=== PATIENT | male | born 1960 | race Two or more races ===

== ENCOUNTER 2019-01-31 23:02 | Inpatient (IN) | payer MEDICARE, OTHER ==
[~2019-01-31] VITALS: Ht 170.2 cm; Wt 59.0 kg
[2019-01-31 23:00] VITALS: BP 147/81
--- NOTE | 2019-01-31 23:10 | NUR ---
PT TIFFANY FROM [facility], SENT BY PMD FOR HGB 6.8 AND HCT 20.8 THIS MORNING. PT HAS TRACH, RUE PICC, GTUBE, LUE FISTULA. PT ABLE TO FOLLOW SIMPLE COMMANDS. NONVERBAL. NAD NOTED. RESP EVEN AND UNLABORED. PT ON MONITOR IN BED 8 WITH FAMILY AT BEDSIDE. WILL CONTINUE TO MONITOR.
--- NOTE | 2019-01-31 23:20 | NUR ---
Conner duval in [facility] - 01/31/19 at 2325 by CIPRIANO BLOOD DRAWN AND GIVEN TO LAB
--- NOTE | 2019-01-31 23:25 | NUR ---
PHLEB AT BEDSIDE FOR LAB DRAW.
[2019-01-31] MEDS ORDERED: PANTOPRAZOLE 40 MG VIAL ONE (23:28)
[2019-01-31] MEDS ORDERED: PANTOPRAZOLE 80 MG in IV NS 0.9% 100 ML IV ONE (23:30)
[2019-01-31 23:40] LABS: BASOPHILS # (AUTO) 0.3 /CMM (0.0-0.2); BASOPHILS % (AUTO) 3.3 % (0.0-2.0); HEMATOCRIT 21 % (39-51); LYMPHOCYTES # (AUTO) 0.5 /CMM (0.8-4.8); LYMPHOCYTES % (AUTO) 5.2 % (20.0-44.0); MEAN CORPUSCULAR HGB CONC 33 g/dl (31.0-36.0); MEAN CORPUSCULAR VOLUME 94 fL (80-96); MONOCYTES # (AUTO) 0.8 /CMM (0.1-1.30); MONOCYTES % (AUTO) 8.5 % (2.0-12.0); NEUTROPHILS # (AUTO) 7.3 /CMM (1.8-8.9); PLATELET COUNT (AUTO) 273 /CMM (150-450); RED BLOOD CELL COUNT(AUTO) 2.21 MIL/uL (4.5-6.0); WHITE BLOOD COUNT (AUTO) 9.2 K/uL (4.3-11.0)
[2019-01-31 23:41] LABS: HEMOGLOBIN 6.9 g/dL (13.5-17.5)
[2019-01-31 23:57] LABS: MAGNESIUM 2.7 mg/dL (1.8-2.4); PHOSPHORUS 3.7 mg/dL (2.5-4.9)
[2019-02-01] VITALS (13 sets, daily range): BP systolic 102–175; BP diastolic 36–82
[2019-02-01 00:14] LABS: ALBUMIN 2.9 g/dL (3.4-5.0); BILIRUBIN,DIRECT 0.2 mg/dL (0.0-0.2); BILIRUBIN,TOTAL 0.5 mg/dL (0.2-1.0); CALCIUM, SERUM 8.5 mg/dL (8.5-10.1); CREATININE 3.5 mg/dL (0.6-1.3); TOTAL PROTEIN, SERUM 3.8 g/dL (6.4-8.2)
[2019-02-01 00:15] LABS: POTASSIUM 2.6 mmol/L (3.5-5.1)
[2019-02-01 00:21] LABS: OCCULT BLOOD STOOL NEGATIVE (NEGATIVE)
[2019-02-01 00:24] LABS: MONOCYTES % (MANUAL) 5 % (0-11.0); NEUTROPHILS % (MANUAL) 87 (42-76)
[2019-02-01 00:25] LABS: EOSINOPHILS % (MANUAL) 3 % (0-4); LYMPHOCYTES % (MANUAL) 5 % (16-48)
[2019-02-01] MEDS ORDERED: POTASSIUM CHLORIDE 20 MEQ TAB.PRT.SR PO ONE ×2 (00:30→00:46)
--- NOTE | 2019-02-01 00:41 | NUR ---
REPORT GIVEN TO RENAY LOPEZ FOR DEWEY
--- NOTE | 2019-02-01 01:45 | NUR ---
MANAGER STATISTICAL PROGRAMMING NOTE PATIENT RECEIVED FROM ER IN [facility], AT BEDSIDE. PATIENT A/O X 3-4. PATIENT NONVERBAL, BUT ABLE TO MAKE HIS NEEDS KNOWN. PATIENT HAS NO ACUTE S/S OF DISTRESS. PATIENT HAS NO C/O OF DISCOMFORT, SOB, CHEST PAIN. PATIENT HAS RUE PICC LINE AND LUE AV FISTULA B/T PRESENT. PATIENT TOLERATING VENT SETTINGS AC 16 TV 400 PEEP 5 FIO2 21%. 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 PATIENT HAS TWO J TUBES, THE MEDIAL ONE FOR DRAINAGE, PATENT AND DRAINING TO GRAVITY, DARK GREENISH BROWN LIQUID NOTED. THE LATER SMALLER JTUBE IS CLAMPED AND USED FOR FEEDING AND MEDICATION. PATIENT AND FAMILY ORIENTED TO UNIT AND CALL BUTTON. SAFETY PRECAUTIONS TAUGHT AND IN PLACE. BED IN LOWEST LOCKED POSITION, SIDE RAILS UP X2, CALL LIGHT AT HAND. MD NOTIFIED FOR ADMISSION ORDERS. RN WILL CONTINUE TO MONITOR FOR S/S OF DISTRESS AND ACUTE CHANGES.
--- NOTE | 2019-02-01 03:00 | NUR ---
BOILER TESTING TECHNICIAN NOTE CONSENT OBTAINED FOR BLOOD TRANSFUSION DURING HD
[2019-02-01] MEDS ORDERED: ACETAMINOPHEN 325 MG TABLET PO PRN (03:30)
[2019-02-01] MEDS ORDERED: Z GUARD REMEDY 2 OZ OINT TP PRN (03:30)
[2019-02-01] MEDS ORDERED: MAGNESIUM HYDROXIDE 30 ML UDC PO PRN (03:30)
[2019-02-01] MEDS ORDERED: ONDANSETRON HCL/PF 4 MG/2 ML VIAL IVP PRN (03:30)
[2019-02-01] MEDS ORDERED: ZOLPIDEM TARTRATE 5 MG TABLET PO PRN (03:30)
--- NOTE | 2019-02-01 06:51 | NUR ---
REAL PROPERTY APPRAISER NOTE PATIENT STABLE NO S/S OF DISTRESS. PATIENT SR ONT HE MONITOR SAFETY PRECAUTIONS IN PLACE. POC ENDORSED TO AM FOR DEWEY.
[2019-02-01] MEDS ORDERED: NEPRO 1,000 ML BOTTLE GT PRN ×3 (07:00→14:00)
--- NOTE | 2019-02-01 08:00 | NUR ---
OUTBOARD MOTOR INSPECTOR NOTE RECEIVED PATIENT IN BED ,ALERT ORIENTED,NONVERBAL ABLE TO COMMUNICATE USING PAPER AND PEN , AT BEDSIDE , RT AT BEDSIDE TRACH SUCTION DONE ,WITH TRACH TO VENT SETTING ORDERED , AMBU BAG AT [facility], HAS 2 J TUBE ONE TO DRAINAGE TO GRAVITY WITH GREENISH COLOR , RT UPPER ARM PICC LINE , LT UPPER ARM AV FISTULA, WILL HAVE HD TODAY ,DR BORGES AT BEDSIDE STATED THAT WILL HAVE HD TODAY WITH BLOOD TRANSFUSION I UNIT PRBC WITH HD, WILL CONT TO MONITOR CLOSELY, PLAN OF CARE DISCUSSED WITH PATIENT AND
[2019-02-01] MEDS ORDERED: EPOETIN ALFA (10,000 UNIT) 10,000 UNIT/ML VIAL IV ONE (08:30)
--- NOTE | 2019-02-01 08:30 | NUR ---
WOUND CARE CONSULT: PT PRESENTS WITH RT BELOW KNEE AMPUTATION STUMP AND LEFT PREVIOUS TOE AMPUTATION SITE (CLEAR) WELL SACRAL SCARRING, PRESENT ON ADMISSION. PT IS VENT DEPENDENT. RECOMMENDATIONS MADE FOR SKIN PROTECTION. DISCUSSED WITH NURSING STAFF. LEFT HEEL FLOATED. WILL SEE PRN. YODER IN AGREEMENT WITH PLAN OF CARE. FIRST STEP LOW AIRLOSS MATTRESS ON ORDER. Addendum: 02/01/19 at 0832 by TRISTAN RENTERIA WNDNU Amended: Links added.
--- NOTE | 2019-02-01 09:09 | NUR ---
MS NIÑO NOTE OT AT BEDSIDE PATIENT ,ABLE TO SIT AT EDGE OF HOSPITAL Addendum: 02/01/19 at 0911 by WALTER SALES RN CORRECTION IN SPELLING ,ABLE TO SIT AT EDGE OB BED WITH OT
--- NOTE | 2019-02-01 11:14 | NUR ---
ROLL GRINDER OPERATOR NOTE DIETARY AT BEDSIDE ,AWARE F G TUBE FEEDING RATE, STATED THAT WILL CHECK IT OUT ALSO CALLED TO HD NURSE LEWIS STATED EBONI HD NURSE WILL COME THIS AFTERNOON ,WILL GIVE BLOOD I UNIT PRBC WITH HD ORDERED
--- NOTE | 2019-02-01 11:41 | NUR ---
television mechanic note seen by dr perez notified that k 2.6 hg 6.9,stated will adjust with hd
[2019-02-01] MEDS ORDERED: LEVE500T20 JT ×2 (13:19→13:43)
[2019-02-01] MEDS ORDERED: MULT-24 JT (13:19)
[2019-02-01] MEDS ORDERED: DORZ10DR10 EACHEYE (13:19)
[2019-02-01] MEDS ORDERED: FERR325T23 JT (13:19)
[2019-02-01] MEDS ORDERED: CALC0.5C11 JT (13:19)
[2019-02-01] MEDS ORDERED: MIDO10TA JT (13:19)
[2019-02-01 13:30] LABS: THYROID STIMULATING HORMONE 1.61 uIU/mL (0.358-3.74)
[2019-02-01] MEDS ORDERED: TRAV5DRO EACHEYE (13:43)
[2019-02-01] MEDS ORDERED: ATOR80TA JT (13:43)
[2019-02-01] MEDS ORDERED: FERR325T28 JT (13:43)
[2019-02-01] MEDS ORDERED: TIMO5DRO35 RIGHTEYE (13:43)
[2019-02-01] MEDS ORDERED: SERT100T JT (13:43)
[2019-02-01] MEDS ORDERED: FLUD0.1T JT (13:43)
[2019-02-01] MEDS ORDERED: LEVO50TA JT (13:43)
--- NOTE | 2019-02-01 13:58 | NUR ---
TOBACCO SAMPLE PULLER NOTE [facility] APPLIED ORDERED, PER DR JONY STANFORD TO DO SLIDING SCALE WITH INSULIN.PER DIETARY OK TO CHANGE J TUBE FEEDING AT 40 ML PER HOUR
[2019-02-01] MEDS ORDERED: DEXTROSE 50%-WATER 50 ML DISP.SYRIN IV PRN (14:00)
--- NOTE | 2019-02-01 14:54 | NUR ---
television tube inspector note hd started as ordered, blood transfusion i unit prbc start to transfuse by hd nurse with hd as ordered ,will cont to monitor
[2019-02-01] MEDS ORDERED: PANT40TA4 JT (15:22)
[2019-02-01] MEDS ORDERED: INSU100V7 SQ (15:22)
--- NOTE | 2019-02-01 16:15 | NUR ---
telegraph repeater installer note on hd at this time, at bedside , not in distress
[2019-02-01] MEDS: BLOOD SUGAR DIAGNOSTIC 1 EACH STRIP IN SCH (17:00)
--- NOTE | 2019-02-01 17:43 | NUR ---
fran mcmahon note hd completed removed 1.5ml of fluids bp 181/84 hr 81 Addendum: 02/01/19 at 1753 by WALTER SALES RN bp rechecked 124/59 hr 74
[2019-02-02] VITALS (11 sets, daily range): BP systolic 106–133; BP diastolic 26–69
[2019-02-02] MEDS: BLOOD SUGAR DIAGNOSTIC 1 EACH STRIP IN SCH ×4 (00:34→17:31)
[2019-02-02] MEDS: INSULIN REGULAR, HUMAN 100 UNIT/ML 3 ML VIAL SQ PRN ×4 (00:37→17:43)
--- NOTE | 2019-02-02 01:07 | NUR ---
SHUTTLER NOTE RECEIVED PATIENT IN BED , A/O ,NONVERBAL ABLE TO MOUTH WORDS, WITH TRACH ON MECHANICAL VENTILATOR, TOLERATED VENT SETTING WELL, NO SOB/ACUTE DISTRESS NOTED , AMBU BAG AT BEDSIDE, HAS 2 J TUBE ONE TO DRAINAGE TO GRAVITY WITH GREENISH COLOR , AND JT INFUSING FEEDING ORDERED, WITH NO RESIDUAL AT THIS TIME, RT UPPER ARM PICC LINE , LT UPPER ARM AV FISTULA, S/P HD WITH BLOOD TRANSFUSION I UNIT PRBC WITH HD, NO C/O OR DISCOMFORT NOTED, WILL CONTINUE TO MONITOR CLOSELY. Addendum: 02/02/19 at 0115 by VINH ALMANZAR RN CORRECT TIME 02/01/191919
--- NOTE | 2019-02-02 06:30 | NUR ---
BACON SKINNER NOTE PATIENT IN BED ,AWAKE A/O ,NONVERBAL ABLE TO MOUTH WORDS, WITH TRACH ON MECHANICAL VENTILATOR, TOLERATED VENT SETTING WELL, SR IN THE TELE MONITOR WITH HR 80-90S NO SOB/ACUTE DISTRESS NOTED , FEEDING INFUSING WELL AND PATIENT TOLERATED WELL, NO RESIDUAL NOTED, NO SIGNIFICANT CHANGE IN CONDITION DURING THE NIGHT, WILL ENDORSE CONTINUITY OF CARE TO ONCOMING NURSE.
[2019-02-02 06:45] LABS: BASOPHILS # (AUTO) 0.1 /CMM (0.0-0.2); BASOPHILS % (AUTO) 1.1 % (0.0-2.0); EOSINOPHILS % (AUTO) 3.2 % (0.0-6.0); HEMATOCRIT 25 % (39-51); HEMOGLOBIN 8.6 g/dL (13.5-17.5); LYMPHOCYTES # (AUTO) 0.5 /CMM (0.8-4.8); MEAN CORPUSCULAR HGB CONC 34 g/dl (31.0-36.0); MEAN CORPUSCULAR VOLUME 91 fL (80-96); MONOCYTES # (AUTO) 0.7 /CMM (0.1-1.30); MONOCYTES % (AUTO) 10.5 % (2.0-12.0); NEUTROPHILS # (AUTO) 5.1 /CMM (1.8-8.9); NEUTROPHILS % (AUTO) 77.2 % (43.0-81.0); PLATELET COUNT (AUTO) 234 /CMM (150-450); RED BLOOD CELL COUNT(AUTO) 2.74 MIL/uL (4.5-6.0); WHITE BLOOD COUNT (AUTO) 6.5 K/uL (4.3-11.0)
[2019-02-02 07:00] LABS: CALCIUM, SERUM 8.8 mg/dL (8.5-10.1); CREATININE 2.5 mg/dL (0.6-1.3); MAGNESIUM 2.5 mg/dL (1.8-2.4); POTASSIUM 3.2 mmol/L (3.5-5.1)
--- NOTE | 2019-02-02 07:10 | NUR ---
RN OPENING NOTE RECEIVED PATIENT ASLEEP, BUT EASILY AROUSABLE. PATIENT IS ON TELE MONITOR, SINUS RHYTHM. ON GT FEEDING NEPRO AT 40ML/HR. HAS A RIGHT UPPER ARM PICC LINE AND LEFT UPPER ARM HD ACCESS. BED LOCKED AND IN LOWEST POSITION. CALL LIGHT WITHIN REACH. WILL CONTINUE TO MONITOR.
[2019-02-02] MEDS: NEPRO 1,000 ML BOTTLE GT PRN (09:38)
[2019-02-02] MEDS ORDERED: POTASSIUM CHLORIDE 20 MEQ POWDER PACKET NG ONE (10:30)
--- NOTE | 2019-02-02 15:51 | NUR ---
RN NOTE PATIENT'S POTASSIUM HAS BEEN REPLACED. PATIENTS STATES NO COMPLAINS OF ANY PAIN OR SOB. FAMILY ON BEDSIDE. OLD GT SITE DRAINING WELL. PATIENT TOLERATING JT FEEDING AT 40ML/HR. NO RESIDUAL. WILL CONT TO MONITOR
--- NOTE | 2019-02-02 18:44 | NUR ---
RN CLOSING NOTE PATIENT IN BED AWAKE AND ALERT, NON VERBAL BUT MOUTHS WORDS TO MEET NEEDS. ASKED TO BE SUCTIONED. FAMILY ON BEDSIDE. ALL MEDS GIVEN. NO COMPLAINS OF ANY PAIN OR SOB. WOUNDS/ AMPUTATIONS NOTED. INSULIN COVERAGE GIVEN. BED ON LOWEST POSITION. CALL LIGHT WITHIN REACH. WILL ENDORSE TO NOC SHIFT.
[2019-02-03] VITALS (8 sets, daily range): BP systolic 113–151; BP diastolic 45–93
[2019-02-03] MEDS: BLOOD SUGAR DIAGNOSTIC 1 EACH STRIP IN SCH ×4 (00:49→18:05)
[2019-02-03] MEDS: INSULIN REGULAR, HUMAN 100 UNIT/ML 3 ML VIAL SQ PRN ×4 (00:56→18:12)
--- NOTE | 2019-02-03 07:00 | NUR ---
FIELD OPERATOR OPENING NOTE RECEIVED PATIENT IN BED , A/OX3 ,NONVERBAL ABLE TO MOUTH WORDS, WITH TRACH ON MECHANICAL VENTILATOR, TOLERATED VENT SETTING WELL, NO SOB/ACUTE DISTRESS NOTED , AMBU BAG AT BEDSIDE, HAS G TUBE ONE TO DRAINAGE TO GRAVITY WITH GREENISH COLOR , AND JT INFUSING FEEDING ORDERED, WITH NO RESIDUAL AT THIS TIME, RT UPPER ARM PICC LINE , LT UPPER ARM AV FISTULA. NO C/O OR DISCOMFORT NOTED, WILL CONTINUE TO MONITOR CLOSELY.
[2019-02-03] MEDS: SOD FERRIC GLUC 125 MG in IV NS 0.9% 100 ML IV SCH (14:10)
[2019-02-03] MEDS: NEPRO 1,000 ML BOTTLE GT PRN (14:21)
--- NOTE | 2019-02-03 17:40 | NUR ---
RT NOTE PT REMAINS MECHANICALLY VENTILATED VIA SHILEY 6 CUFFED TRACHEOSTOMY TUBE. CUFF INFLATED. TRACH TUBE MIDLINE AND SECURE. VENTILATOR SETTINGS PRESCRIBED. ALARMS SET PER PROTOCOL AND AUDIBLE. VENT PLUGGED IN TO RED OUTLET. AMBU BAG AT BED SIDE. PT AWAKE AND ALERT. NO DISTRESS NOTED. Addendum: 02/03/19 at 1741 by KELLE GARCIA RT Amended: Links added.
--- NOTE | 2019-02-03 19:30 | NUR ---
MANAGER MSW END OF SHIFT NOTES PT IN BED, WITH AT BEDSIDE. REPORT GIVEN TO NOC NURSE FOR DEWEY. PT HAD DIALYSIS TODAY WITH 2000ML OUT. ALL TX RENDERED ORDERED. PT TOLERATING VENT SETTINGS MD ORDERED. BED IN LOCKED/LOWEST POSITION. CALL LIGHT IN REACH.
--- NOTE | 2019-02-03 19:36 | NUR ---
RN Notes Received patient awake. alert and oriented x3, mouths words, denies pain and discomfort. Trach intact on mechanical vent with settings in place and tolerated well. Tele monitor reads sinus rhythm with BBB. G tube intact to gravity with greenish output. J tube patent and intact with ongoing feeding infusing well. Right upper arm PICC patent and intact. Left BKA dressing intact. Patient may do self suction. Safety measures and fall precaution in place with call light within reach. Will continue to monitor patient.
[2019-02-04] VITALS: BP 123/62
[2019-02-04] MEDS: BLOOD SUGAR DIAGNOSTIC 1 EACH STRIP IN SCH ×5 (00:11→23:31)
[2019-02-04] MEDS: INSULIN REGULAR, HUMAN 100 UNIT/ML 3 ML VIAL SQ PRN ×5 (00:16→18:48)
[2019-02-04 04:00] VITALS: BP 120/67
--- NOTE | 2019-02-04 06:51 | NUR ---
RN Notes Patient slept on and off overnight, vital signs stable, afebrile. No signs of distress and discomfort noted. Tele monitor read sinus rhythm with BBB. GT intact to gravity, with greenish output. JT intact with ongoing feeding and tolerated well. Suction secretions PRN. Turned and repositioned per protocol. Kept clean and dry. All needs attended. Will endorse to morning RN for continuity of care.
--- NOTE | 2019-02-04 07:37 | NUR ---
RN NOTES PATIENT RECEIVED RESTING COMFORTABLY IN BED, EASILY AROUSABLE DURING CARE. ON MECHANICAL VENTILATION TOLERATED WELL, NO RESPIRATORY DISTRESS NOTED. GONZALEZ PICC PATENT AND INTACT NO REDNESS OR INFILTRATION NOTED, BERNABE AVF WITH POSITIVE BRUIT AND THRILL. KEPT CLEAN DRY AND COMFORTABLE, CALL LIGHT WITHIN EASY REACH WILL CONTINUE TO MONITOR
[2019-02-04 08:00] VITALS: BP 101/41
--- NOTE | 2019-02-04 08:07 | NUR ---
RT NOTE PT REMAINS MECHANICALLY VENTILATED VIA SHILEY 6 CUFFED TRACHEOSTOMY TUBE. CUFF INFLATED. TRACH TUBE MIDLINE AND SECURE. VENTILATOR SETTINGS PRESCRIBED. ALARMS SET PER PROTOCOL AND AUDIBLE. VENT PLUGGED IN TO RED OUTLET. AMBU BAG AT BED SIDE. PT AWAKE AND ALERT. NO DISTRESS NOTED.
--- NOTE | 2019-02-04 09:15 | NUR ---
RN NOTES/MED RECON RELAYED TO DR. Lauren BORGES THAT MED RECON NEEDS REVIEW, ORDERS FAXED TO PHARMACY WILL CONTINUE TO MONITOR
[2019-02-04 11:44] LABS: BASOPHILS # (AUTO) 0.1 /CMM (0.0-0.2); BASOPHILS % (AUTO) 0.8 % (0.0-2.0); EOSINOPHILS % (AUTO) 2.3 % (0.0-6.0); HEMATOCRIT 31 % (39-51); HEMOGLOBIN 10.2 g/dL (13.5-17.5); LYMPHOCYTES # (AUTO) 0.7 /CMM (0.8-4.8); LYMPHOCYTES % (AUTO) 8.3 % (20.0-44.0); MEAN CORPUSCULAR HGB CONC 33 g/dl (31.0-36.0); MEAN CORPUSCULAR VOLUME 91 fL (80-96); MONOCYTES # (AUTO) 0.8 /CMM (0.1-1.30); MONOCYTES % (AUTO) 9.6 % (2.0-12.0); NEUTROPHILS # (AUTO) 6.3 /CMM (1.8-8.9); PLATELET COUNT (AUTO) 267 /CMM (150-450); RED BLOOD CELL COUNT(AUTO) 3.41 MIL/uL (4.5-6.0); WHITE BLOOD COUNT (AUTO) 7.9 K/uL (4.3-11.0)
[2019-02-04 12:00] VITALS: BP_SYST 101; BP_SYST 96; BP_DIAS 41; BP_DIAS 47
[2019-02-04] MEDS ORDERED: FERROUS SULFATE (325 MG) 325 MG/TAB TABLET GT SCH (12:00)
[2019-02-04] MEDS ORDERED: FLUDROCORTISONE 0.1 MG TABLET JT SCH (12:00)
[2019-02-04 12:03] LABS: CALCIUM, SERUM 9.2 mg/dL (8.5-10.1); CREATININE 3.5 mg/dL (0.6-1.3); MAGNESIUM 2.7 mg/dL (1.8-2.4); PHOSPHORUS 1.9 mg/dL (2.5-4.9); POTASSIUM 3.1 mmol/L (3.5-5.1)
[2019-02-04] MEDS: MIDODRINE HCL (5MG) 5 MG TABLET GT SCH ×2 (12:46→17:33)
[2019-02-04] MEDS: SOD FERRIC GLUC 125 MG in IV NS 0.9% 100 ML IV SCH (15:28)
[2019-02-04 16:00] VITALS: BP 109/51
[2019-02-04] MEDS: TIMOLOL 0.5% SOLN OPHTH 5 ML BOTTLE RIGHTEYE SCH (17:34)
[2019-02-04] MEDS: FERROUS SULFATE UDC 300 MG/5 ML UDC GT SCH ×2 (17:34→23:34)
[2019-02-04] MEDS: DORZOLAMIDE OPTH 2% 10 ML BOTTLE EACHEYE SCH (17:34)
[2019-02-04] MEDS ORDERED: POTASSIUM CHLORIDE 20 MEQ POWDER PACKET GT ONE (18:00)
[2019-02-04] MEDS: NEPRO 1,000 ML BOTTLE GT PRN (18:09)
--- NOTE | 2019-02-04 18:54 | NUR ---
RN NOTES PATIENT RESTING COMFORTABLY IN BED, EASILY AROUSABLE DURING CARE. ON MECHANICAL VENTILATION TOLERATED WELL, NO RESPIRATORY DISTRESS NOTED. GONZALEZ PICC PATENT AND INTACT NO REDNESS OR INFILTRATION NOTED, BERNABE AVF WITH POSITIVE BRUIT AND THRILL. KEPT CLEAN DRY AND COMFORTABLE, CALL LIGHT WITHIN EASY REACH WILL CONTINUE TO MONITOR AND ENDORSE TO NEXT SHIFT FOR CONTINUITY OF CARE
[2019-02-04] MEDS: LEVETIRACETAM SOL (5 ML) 100 MG/ML UDC JT SCH (21:54)
[2019-02-04] MEDS: PANTOPRAZOLE 40 MG/PACK PACK GT SCH (21:54)
[2019-02-04 22:00] VITALS: BP 164/87
[2019-02-04] MEDS ORDERED: LATANOPROST EYE DROP 0.005% 2.5 ML BOTTLE EACHEYE SCH (22:00)
[2019-02-04] MEDS ORDERED: ATORVASTATIN 40 MG TABLET GT SCH (22:00)
[2019-02-04] MEDS ORDERED: INSULIN GLARGINE, 100 UNIT/ML CARTRIDGE SQ SCH (22:00)
[2019-02-05] VITALS (7 sets, daily range): BP systolic 101–145; BP diastolic 54–83
[2019-02-05] MEDS: BLOOD SUGAR DIAGNOSTIC 1 EACH STRIP IN SCH ×3 (05:21→18:02)
[2019-02-05] MEDS: FERROUS SULFATE UDC 300 MG/5 ML UDC GT SCH ×3 (05:21→17:08)
[2019-02-05] MEDS: INSULIN REGULAR, HUMAN 100 UNIT/ML 3 ML VIAL SQ PRN ×3 (05:27→17:38)
--- NOTE | 2019-02-05 07:25 | NUR ---
RN OPENING NOTE RECEIVED PATIENT IN BED ASLEEP BUT EASILY AROUSABLE. ON VENT SATING >90%. ON TELE MONITOR SR WITH BBB. HAS A JTUBE WITH NEPRO AT 40 ML/HR. HAS AN OLD GT DRAINING TO GRAVITY USING A FC. HAS A LEFT UPPER ARM FISTULA AND RIGHT UPPER ARM PICC. HAS A SCHEDULED HD TODAY WITH AN ORDER OF EPOGEN TO ADMINISTER IF HGB <11. PATIENT'S BED LOCKED AND IN LOW POSITION. CALL LIGHT WITHIN REACH. WILL CONTINUE TO MONITOR
[2019-02-05 07:28] LABS: BASOPHILS # (AUTO) 0.1 /CMM (0.0-0.2); BASOPHILS % (AUTO) 1.8 % (0.0-2.0); EOSINOPHILS % (AUTO) 4.8 % (0.0-6.0); HEMATOCRIT 28 % (39-51); HEMOGLOBIN 9.5 g/dL (13.5-17.5); LYMPHOCYTES # (AUTO) 0.9 /CMM (0.8-4.8); LYMPHOCYTES % (AUTO) 10.3 % (20.0-44.0); MEAN CORPUSCULAR HGB CONC 34 g/dl (31.0-36.0); MEAN CORPUSCULAR VOLUME 91 fL (80-96); MONOCYTES # (AUTO) 0.7 /CMM (0.1-1.30); MONOCYTES % (AUTO) 8.3 % (2.0-12.0); NEUTROPHILS # (AUTO) 6.2 /CMM (1.8-8.9); NEUTROPHILS % (AUTO) 74.8 % (43.0-81.0); PLATELET COUNT (AUTO) 266 /CMM (150-450); WHITE BLOOD COUNT (AUTO) 8.3 K/uL (4.3-11.0)
[2019-02-05] MEDS ORDERED: LEVOTHYROXINE SODIUM 50 MCG TABLET GT SCH (07:30)
[2019-02-05 07:51] LABS: CREATININE 4.2 mg/dL (0.6-1.3); MAGNESIUM 2.8 mg/dL (1.8-2.4); PHOSPHORUS 2.2 mg/dL (2.5-4.9); POTASSIUM 3.7 mmol/L (3.5-5.1)
[2019-02-05] MEDS: PANTOPRAZOLE 40 MG/PACK PACK GT SCH (08:14)
[2019-02-05] MEDS: MIDODRINE HCL (5MG) 5 MG TABLET GT SCH ×3 (08:14→17:07)
[2019-02-05] MEDS: LEVETIRACETAM SOL (5 ML) 100 MG/ML UDC JT SCH (08:14)
[2019-02-05] MEDS: TIMOLOL 0.5% SOLN OPHTH 5 ML BOTTLE RIGHTEYE SCH ×2 (08:17→17:10)
[2019-02-05] MEDS: DORZOLAMIDE OPTH 2% 10 ML BOTTLE EACHEYE SCH ×2 (08:17→17:10)
[2019-02-05] MEDS ORDERED: MULTIVITAMINS,THERAGRAN 1 UDTAB TABLET GT SCH (09:00)
[2019-02-05] MEDS ORDERED: SERTRALINE HCL 50 MG TABLET PO SCH (09:00)
[2019-02-05] MEDS ORDERED: CALCITRIOL ORAL SOLUTION 1 MCG/ML GT SCH (09:00)
--- NOTE | 2019-02-05 12:14 | NUR ---
RN NOTE ORDERS FROM DR LESLI BORGES TO [facility] PATIENT AFTER DIALYSIS. CALLED DIALYSIS NURSE WILL COME AROUND 1300. TRANSPORTATION HOSPITAL PERSONNEL DIRECTOR AT 1500. PATIENT AWARE
--- NOTE | 2019-02-05 12:54 | NUR ---
RN NOTE REPORT GIVEN TO TYRA, SPOKE TO RENAY VALLE.
--- NOTE | 2019-02-05 13:48 | NUR ---
RN NOTE CALLED AND INFORMED THE ABOUT THE DISCHARGE. WILL COME TODAY.
[2019-02-05] MEDS: SOD FERRIC GLUC 125 MG in IV NS 0.9% 100 ML IV SCH (14:07)
--- NOTE | 2019-02-05 14:15 | NUR ---
RN NOTE PATIENT HAVING DIALYSIS RIGHT NOW.
[2019-02-05] MEDS ORDERED: ALBUMIN 25% 25 GM in PREMIX 1 EA IV PRN (15:00)
[2019-02-05] MEDS ORDERED: EPOETIN ALFA (10,000 UNIT) 10,000 UNIT/ML VIAL IV ONE (15:00)
--- NOTE | 2019-02-05 15:10 | NUR ---
RN NOTE DIALYSIS NURSE WANTED AN ALBUMIN 25% 100ML IV DUE TO BP GOING LOW. DR JONY STANFORD'Calista AND ORDERED THROUGH THE PHARMACY STAT.
--- NOTE | 2019-02-05 18:00 | NUR ---
RN NOTE PATIENT GOT PICKED UP BY THE AMBULANCE. PATIENT'S SBP WENT UP TO 175. PATIENT WAS A LITTLE ANXIOUS AND TOLD HIM TO RELAX. PATIENT'S SBP WENT DOWN TO 135. NO ANY COMPLAINS OF PAIN OR SOB.
== END 2019-02-05 18:05 | DRG 280 ==
LOC: ER 23:04 → TELE1 02-01 00:04
PROVIDERS: ADMIT Internal Medicine Nephrology; ATTEND Internal Medicine Nephrology
PROC: 5A1955Z Respiratory Ventilation, Greater than 96 Consecutive Hours (ICD-10-PCS; principal; 2019-02-01)
PROC: 5A1D70Z Performance of Urinary Filtration, Intermittent, Less than 6 Hours Per Day (ICD-10-PCS; 2019-02-01)
PROC: 30253N1 (ICD-10-PCS; 2019-02-01)
PROC: 02HV33Z Insertion of Infusion Device into Superior Vena Cava, Percutaneous Approach (ICD-10-PCS; 2019-02-01)
PROC: B548ZZA Ultrasonography of Superior Vena Cava, Guidance (ICD-10-PCS; 2019-02-01)
PROC: 5A1D70Z Performance of Urinary Filtration, Intermittent, Less than 6 Hours Per Day (ICD-10-PCS; 2019-02-03)
PROC: 5A1D70Z Performance of Urinary Filtration, Intermittent, Less than 6 Hours Per Day (ICD-10-PCS; 2019-02-05)
DX: I13.2 Hypertensive heart and chronic kidney disease with heart failure and with stage 5 chronic kidney disease, or end stage renal disease (principal); I21.4 Non-ST elevation (NSTEMI) myocardial infarction; N18.6 End stage renal disease; I50.33 Acute on chronic diastolic (congestive) heart failure; Z99.11 Dependence on respirator [ventilator] status; J96.11 Chronic respiratory failure with hypoxia; J98.11 Atelectasis; E78.5 Hyperlipidemia, unspecified; E11.9 Type 2 diabetes mellitus without complications; I10 Essential (primary) hypertension; Z99.2 Dependence on renal dialysis; E11.22 Type 2 diabetes mellitus with diabetic chronic kidney disease; E11.69 Type 2 diabetes mellitus with other specified complication; Z93.0 Tracheostomy status; Z95.1 Presence of aortocoronary bypass graft; R13.10 Dysphagia, unspecified; Z93.1 Gastrostomy status; E11.51 Type 2 diabetes mellitus with diabetic peripheral angiopathy without gangrene; Z86.73 Personal history of transient ischemic attack (TIA), and cerebral infarction without residual deficits; Z89.421 Acquired absence of other right toe(s); Z88.5 Allergy status to narcotic agent; I44.7 Left bundle-branch block, unspecified; E87.6 Hypokalemia; I27.20 Pulmonary hypertension, unspecified; D63.1 Anemia in chronic kidney disease
CPT/HCPCS: 31720; 36415; 71045-TC; 80048-TC; 80061-TC; 80076-TC; 82272-TC; 82728-TC; 82962-TC; 83540-TC; 83690-TC; 83735-TC; 84100-TC; 84439-TC; 84443-TC; 84484-TC; 85025-TC; 85730-TC; 86850-TC; 86921-TC; 87081-TC; 87340; 90935-TC; 93307-TC; 94002-TC; 94003-TC; 94760-TC; 94762-TC; 94799-TC; 99082-TC; A4216; A4217; A6403; C9113; G0378; J0885; J1815; J1953; J2916; J7030; J7050; P9016-BL; P9047

== ENCOUNTER 2019-03-17 14:20 | Inpatient (IN) | payer MEDICARE, OTHER ==
[2019-03-17] VITALS (28 sets, daily range): BP systolic 39–150; BP diastolic 17–85
[~2019-03-17] VITALS: Ht 172.7 cm; Wt 49.4 kg
[~2019-03-17 14:20] MED LIST: ATOR80TA JT; CALC0.5C11 JT; DORZ10DR10 EACHEYE; FERR325T23 JT; FERR325T28 JT; FLUD0.1T JT; INSU100V7 SQ; LEVE500T20 JT; LEVO50TA JT; MIDO10TA JT; MULT-24 JT; PANT40TA4 JT; SERT100T JT; TIMO5DRO35 RIGHTEYE; TRAV5DRO EACHEYE
[2019-03-17] MEDS ORDERED: IV NS 0.9% 500 ML BAG IV ONE (14:30)
--- NOTE | 2019-03-17 14:30 | NUR ---
LOW BP AND TACHYPNEIC AFTER COMPLETING DIALYSIS. PT ON VENT/TRACH, HAS VAZQUEZ CATHETER IN PLACE, G-TUBE, LEFT BELOW THE KNEE AMPUTATION, AND RIGHT TOES AMPUTATION. IS ABLE TO COMMUNICATE VERBALLY WITH SOME EFFORT. DENIES PAIN, DIZZINESS, WEAKNESS. SKIN INTACT, NO ACUTE DISTRESS NOTED. ON MONITOR, READY FOR EVAL. Addendum: 03/17/19 at 2004 by JUNE AV SHUNT AT UPPER LEFT ARM
[2019-03-17 15:02] LABS: BASOPHILS # (AUTO) 0.1 /CMM (0.0-0.2); BASOPHILS % (AUTO) 0.4 % (0.0-2.0); EOSINOPHILS % (AUTO) 0.3 % (0.0-6.0); HEMATOCRIT 47 % (39-51); HEMOGLOBIN 14.7 g/dL (13.5-17.5); LYMPHOCYTES # (AUTO) 0.3 /CMM (0.8-4.8); MEAN CORPUSCULAR HGB CONC 31 g/dl (31.0-36.0); MEAN CORPUSCULAR VOLUME 94 fL (80-96); MONOCYTES # (AUTO) 0.6 /CMM (0.1-1.30); MONOCYTES % (AUTO) 2.3 % (2.0-12.0); NEUTROPHILS # (AUTO) 25.1 /CMM (1.8-8.9); PLATELET COUNT (AUTO) 216 /CMM (150-450); RED BLOOD CELL COUNT(AUTO) 5.01 MIL/uL (4.5-6.0); WHITE BLOOD COUNT (AUTO) 26.1 K/uL (4.3-11.0)
[2019-03-17] MEDS ORDERED: BLOO-668 IN (15:04)
[2019-03-17] MEDS ORDERED: INSU100I26 SQ (15:04)
[2019-03-17] MEDS ORDERED: ASPI-1169 JT (15:04)
[2019-03-17] MEDS ORDERED: NUT.237L67 GT (15:04)
[2019-03-17] MEDS ORDERED: INSU100V30 SQ (15:04)
[2019-03-17] MEDS ORDERED: ACET-868 PO (15:04)
[2019-03-17] MEDS ORDERED: PHEN1SUP42 RC (15:04)
[2019-03-17] MEDS ORDERED: SODI1TAB3 JT (15:04)
[2019-03-17] MEDS ORDERED: ACET-868 JT (15:04)
[2019-03-17] MEDS ORDERED: CHLO473M5 MM (15:04)
[2019-03-17] MEDS ORDERED: ACET-2605 JT (15:04)
[2019-03-17] MEDS ORDERED: ALBU2.5V13 IH (15:04)
[2019-03-17] MEDS ORDERED: OMEP40CA37 JT (15:04)
[2019-03-17] MEDS ORDERED: POLY15DR40 EACHEYE (15:04)
[2019-03-17 15:15] LABS: CALCIUM, SERUM 9.7 mg/dL (8.5-10.1); CREATININE 2.6 mg/dL (0.6-1.3); POTASSIUM 3.2 mmol/L (3.5-5.1)
[2019-03-17 15:25] LABS: ALBUMIN 2.9 g/dL (3.4-5.0); BILIRUBIN,DIRECT 0.3 mg/dL (0.0-0.2); BILIRUBIN,TOTAL 0.7 mg/dL (0.2-1.0)
[2019-03-17 16:03] LABS: BAND % (MANUAL) 9 % (0.0-5.0); LYMPHOCYTES % (MANUAL) 0 % (16-48); MONOCYTES % (MANUAL) 7 % (0-11.0); NEUTROPHILS % (MANUAL) 84 (42-76)
--- NOTE | 2019-03-17 16:07 | NUR ---
Patient is resting comfortably in bed with eyes closed. Easily aroused. VSS
[2019-03-17] MEDS ORDERED: MAGNESIUM HYDROXIDE 30 ML UDC PO PRN (17:00)
[2019-03-17] MEDS ORDERED: MAG HYDROX/AL HYDROX/SIMETH 30 ML UDC PO PRN (17:00)
[2019-03-17] MEDS ORDERED: ONDANSETRON HCL/PF 4 MG/2 ML VIAL IVP PRN (17:00)
[2019-03-17] MEDS ORDERED: Z GUARD REMEDY 2 OZ OINT TP PRN (17:00)
[2019-03-17] MEDS ORDERED: ZOLPIDEM TARTRATE 5 MG TABLET PO PRN (17:00)
[2019-03-17] MEDS ORDERED: NEPRO 1,000 ML BOTTLE GT SCH (17:30)
[2019-03-17] MEDS ORDERED: DEXTROSE 50%-WATER 50 ML DISP.SYRIN IV PRN (17:30)
[2019-03-17] MEDS ORDERED: INSULIN REGULAR, HUMAN 100 UNIT/ML 3 ML VIAL SQ PRN (17:30)
--- NOTE | 2019-03-17 18:08 | NUR ---
REPORT GIVEN TO RENAY TALBOT FOR 254 ICU
--- NOTE | 2019-03-17 18:27 | NUR ---
ATTEMPTED TO INSERT SECOND LINE PER ICU, UNSUCCESSFUL. PT REFUSED ANOTHER ATTEMPT.
--- NOTE | 2019-03-17 18:59 | NUR ---
[facility]
--- NOTE | 2019-03-17 19:06 | NUR ---
CONTACTED ADMITTING SLUBBER HAND DAWIT RAMIREZ AND REQUESTED ORDER FOR PICC LINE INSERTION. RECEIVED ORDER FOR PICC LINE INSERTION. READ BACK ORDER PERFORMED AND CARRIED OUT.
--- NOTE | 2019-03-17 19:12 | NUR ---
received pt from ER, came from HD center for low BP and SOB, alert, follows commands, SR, lungs partially congested, no edema, GT and JT intact, f/c some urine, L BKA, R toe amputation, BERNABE shunt, v/s stable, no pain, pt cleaned and changed.
--- NOTE | 2019-03-17 19:20 | NUR ---
RECEIVED PT IN NO ACUTE DISTRESS IN BED. PT IS A/O X 4 AND ABLE TO MAKE NEEDS KNOWN BY MOUTHING WORDS. PT IS ON MECHANICAL VENT VIA TRACH. TRACH SITE IS CLEAN DRY AND INTACT. TRACH SIZE IS SHILEY # 6 WITH VENT SETTING @ AC 20 TV 400 FIO2 50 PEEP 5. PT TOLERATING VENT SETTING WELL. PT PLACED ON MONITOR WITH SR-ST ON THE MONITOR. PT HAS GTUBE THAT IS CLEAN DRY INTACT AND PATENT CONNECTED TO DRAIN WITH GREEN GASTRIC CONTENT DRAINING AND A JTUBE THAT IS CLEAN DRY INTACT AND PATENT WITH FRESH WATER FLUSH. PT HAS RIGHT AC 20G THAT IS CLEAN DRY INTACT AND PATENT WITH SALINE LOCK. BED IN LOW LOCK POSITION WITH RIALS UP X 2. CALL LIGHT WITHIN REACH AND ALL SAFETY MEASURES ENSURED AND CARRIED OUT. WILL CONTINUE TO MONITOR PT.
--- NOTE | 2019-03-17 19:46 | NUR ---
NOTIFIED SUPERVISOR FELTING MD DR. MARTIN THAT PT HAS LOW BLOOD PRESSURE AND RECEIVED ORDERS FOR LEVOPHED DOUBLE CONCENTRATION AND PARAMETERS. READ BACK ORDERS PERFORMED AND CARRIED OUT.
[2019-03-17] MEDS ORDERED: NOREPINEPHRINE 16 MG in IV D5W 500 ML IV PRN (20:00)
[2019-03-17] MEDS: ALBUTEROL FS 2.5 MG/0.5 ML VIAL.NEB IH SCH (20:18)
[2019-03-17] MEDS: IPRATROPIUM NEB FS 0.5 MG/2.5 ML AMPUL.NEB NEB SCH (20:18)
--- NOTE | 2019-03-17 20:18 | NUR ---
[facility]. PT IS AWAKE AND ALERT . PLASMA CENTER TECHNICIAN CUFF PRESSURE NOTED. TRACH PATENT AND SECURED. NO RESP DISTRESS OR SOB NOTED AT THIS TIME . BREATHING TX GIVEN PER MD'S ORDER. NO ADVERSE REACTION NOTED. SUCTIONED MODERATE AMOUNT YELLOW THICK SECRETIONS. ALARMS ARE SET AND AUDIBLE. VENT PLUGGED INTO RED OUTLET. AMBU BAG AT BEDSIDE. WILL CONTINUE TO MONITOR.
[2019-03-17] MEDS: CHLORHEXIDINE GLUCONATE 15 ML UDC MM SCH (21:09)
[2019-03-17] MEDS: LEVETIRACETAM SOL (5 ML) 100 MG/ML UDC GT SCH (21:09)
[2019-03-17] MEDS: MIDODRINE HCL (5MG) 5 MG TABLET GT SCH (21:09)
[2019-03-17] MEDS: SODIUM CHLORIDE 1000 MG TABLET.SOL GT SCH (21:09)
[2019-03-17] MEDS: FLUDROCORTISONE 0.1 MG TABLET GT SCH ×2 (21:09→23:29)
[2019-03-17] MEDS: FERROUS SULFATE UDC 300 MG/5 ML UDC GT SCH ×2 (21:09→23:33)
[2019-03-17] MEDS: PANTOPRAZOLE 40 MG/PACK PACK GT SCH (21:09)
[2019-03-17] MEDS: BLOOD SUGAR DIAGNOSTIC 1 EACH STRIP IN SCH ×2 (21:10→23:33)
[2019-03-17] MEDS: TIMOLOL 0.5% SOLN OPHTH 5 ML BOTTLE RIGHTEYE SCH (21:10)
[2019-03-17] MEDS: POLYVINYL ALCOHOL 15 ML BOTTLE EACHEYE SCH ×2 (21:11→23:32)
[2019-03-17] MEDS ORDERED: FEE PK DOSING 1 MIN EA MC ONE (21:12)
[2019-03-17] MEDS ORDERED: VANCOMYCIN 1 GM in IV D5W 250 ML IV ONE (21:30)
[2019-03-17] MEDS ORDERED: VANCOMYCIN 500 MG in IV D5W 100 ML IV PRN (21:30)
[2019-03-17] MEDS: PIPERACILLIN /TAZOBACTAM 3.375 G in IV D5W 50 ML IV SCH (21:32)
[2019-03-17] MEDS ORDERED: ATORVASTATIN 40 MG TABLET GT SCH (22:00)
[2019-03-17] MEDS: ACETAMINOPHEN 325 MG TABLET PO PRN (22:44)
[2019-03-17] MEDS: LATANOPROST EYE DROP 0.005% 2.5 ML BOTTLE EACHEYE SCH (23:29)
[2019-03-17] MEDS: INSULIN GLARGINE, 100 UNIT/ML CARTRIDGE SQ SCH (23:31)
[2019-03-18] VITALS (113 sets, daily range): BP systolic 50–161; BP diastolic 13–88
[2019-03-18] MEDS: IPRATROPIUM NEB FS 0.5 MG/2.5 ML AMPUL.NEB NEB SCH ×4 (01:09→19:53)
[2019-03-18] MEDS: ALBUTEROL FS 2.5 MG/0.5 ML VIAL.NEB IH SCH ×4 (01:09→19:53)
[2019-03-18 04:32] LABS: BASOPHILS # (AUTO) 0.1 /CMM (0.0-0.2); BASOPHILS % (AUTO) 0.4 % (0.0-2.0); HEMATOCRIT 43 % (39-51); HEMOGLOBIN 13.3 g/dL (13.5-17.5); LYMPHOCYTES # (AUTO) 0.3 /CMM (0.8-4.8); LYMPHOCYTES % (AUTO) 1.4 % (20.0-44.0); MEAN CORPUSCULAR HGB CONC 31 g/dl (31.0-36.0); MEAN CORPUSCULAR VOLUME 98 fL (80-96); MONOCYTES # (AUTO) 0.8 /CMM (0.1-1.30); MONOCYTES % (AUTO) 3.2 % (2.0-12.0); NEUTROPHILS # (AUTO) 23.3 /CMM (1.8-8.9); PLATELET COUNT (AUTO) 245 /CMM (150-450); RED BLOOD CELL COUNT(AUTO) 4.41 MIL/uL (4.5-6.0); WHITE BLOOD COUNT (AUTO) 24.5 K/uL (4.3-11.0)
[2019-03-18 05:12] LABS: ALBUMIN 2.4 g/dL (3.4-5.0); BILIRUBIN,TOTAL 0.7 mg/dL (0.2-1.0); CALCIUM, SERUM 8.9 mg/dL (8.5-10.1); CREATININE 3.2 mg/dL (0.6-1.3); MAGNESIUM 2.4 mg/dL (1.8-2.4); PHOSPHORUS 5.3 mg/dL (2.5-4.9); POTASSIUM 3.2 mmol/L (3.5-5.1); TOTAL PROTEIN, SERUM 7.9 g/dL (6.4-8.2)
[2019-03-18] MEDS ORDERED: FLUDROCORTISONE 0.1 MG TABLET ONE (05:29)
--- NOTE | 2019-03-18 05:30 | NUR ---
RECEIVED CRITICAL LAB GLUCOSE 416. CHECKED PT GLUCOSE LEVEL WITH GLUCOMETER AND RECEIVED LEVEL OF 437. PER PROTOCOL GAVE 10 UNITS INSULIN AND NOTIFIED MD. AWAITING MD CALL BACK.
[2019-03-18] MEDS: FERROUS SULFATE UDC 300 MG/5 ML UDC GT SCH (05:38)
[2019-03-18] MEDS: PIPERACILLIN /TAZOBACTAM 3.375 G in IV D5W 50 ML IV SCH (05:38)
[2019-03-18] MEDS: FLUDROCORTISONE 0.1 MG TABLET GT SCH ×4 (05:39→23:03)
[2019-03-18] MEDS: BLOOD SUGAR DIAGNOSTIC 1 EACH STRIP IN SCH ×4 (05:39→23:02)
[2019-03-18] MEDS: POLYVINYL ALCOHOL 15 ML BOTTLE EACHEYE SCH ×4 (05:45→23:03)
--- NOTE | 2019-03-18 06:00 | NUR ---
RECHECKED GLUCOSE AND RECEIVED RESULTS OF 414. AWAITING MD CALL BACK.
--- NOTE | 2019-03-18 06:41 | NUR ---
RECEIVED ORDERS FROM BATH MIX OPERATOR MD DR. MARTIN TO CHANGE SLIDING SCALE TO MODERATE AND GIVE DOSE PER SCALE FOR GLUCOSE @ 417 AND RECHECK IN 15 MIN. READ BACK ORDERS PERFORMED AND CARRIED OUT.
[2019-03-18] MEDS: INSULIN REGULAR, HUMAN 100 UNIT/ML 3 ML VIAL SQ PRN ×4 (06:52→23:02)
--- NOTE | 2019-03-18 07:15 | NUR ---
RECHECKED GLUCOSE LEVEL AND RESULTED 410. ENDORSED TO AM RN FOR FOLLOW UP WITH .
--- NOTE | 2019-03-18 07:17 | NUR ---
PT REMAINS IN NO ACUTE DISTRESS IN BED. PT DID NOT HAVE ANY SIGNIFICANT CHANGE IN CONDITION DURING SHIFT. ALL NEEDS MET, ALL ORDERS CARRIED OUT. WILL ENDORSE CARE TO AM RN FOR CONTINUITY OF CARE.
--- NOTE | 2019-03-18 07:45 | NUR ---
DIVERSIFIED CROPS SUPERVISOR: pt.is sedated well with 12 mcg/kg/m Diprivan, rest, no grimacing, on Levophed gtt 10mcg/m, continue titrate, O2sat. over 96%, 50% FiO2, AC 16, NPO, W/C nurse Christin is in room, evaluated wounds, see new orders
[2019-03-18 08:02] LABS: THYROID STIMULATING HORMONE 2.074 uIU/mL (0.358-3.74)
--- NOTE | 2019-03-18 08:20 | NUR ---
AEROPHYSICS ENGINEER: pt.is with L.arm activity, able to touch ETT, sedation to 15 mcg.kg.m Diprivan increased, pt.daughter is in room, notified re pt.VS, IVF, I/O, sedation level, pressor, meds, POC, charge nurse updated
--- NOTE | 2019-03-18 08:21 | NUR ---
PLODDER OPERATOR: previous two notes are error
--- NOTE | 2019-03-18 08:22 | NUR ---
ASSISTANT WOMEN'S BASKETBALL COACH: pt.is A/Ox2, can communicate well, no c/o now, no pain, O2sat. over 94%, FiO2 50%, SR, on Levophed gtt, 8 mcg/m now, 300ml greenish drainage from GT by gravity, feeding 75ml/h via JT was stopped by night nurse, waiting DT consult, ok meds via JT by report, BG was 437, 410, now 389/will s/w , ISS changed to moderate, Na 138/getting NaCl 3gm TID, will s/w , pt.is suctioned well, will reposition q2h, was updated before by night nurse
[2019-03-18] MEDS: CHLORHEXIDINE GLUCONATE 15 ML UDC MM SCH ×2 (09:11→21:56)
[2019-03-18] MEDS: SERTRALINE HCL 50 MG TABLET GT SCH (09:11)
[2019-03-18] MEDS: MIDODRINE HCL (5MG) 5 MG TABLET GT SCH ×3 (09:11→16:23)
[2019-03-18] MEDS: ASPIRIN 81 MG TAB.CHEW GT SCH (09:11)
[2019-03-18] MEDS: LEVETIRACETAM SOL (5 ML) 100 MG/ML UDC GT SCH ×2 (09:11→21:56)
[2019-03-18] MEDS: PANTOPRAZOLE 40 MG/PACK PACK GT SCH ×2 (09:12→21:56)
[2019-03-18] MEDS: MULTIVITAMINS,THERAGRAN 1 UDTAB TABLET GT SCH (09:12)
[2019-03-18] MEDS: TIMOLOL 0.5% SOLN OPHTH 5 ML BOTTLE RIGHTEYE SCH ×2 (09:12→16:24)
[2019-03-18] MEDS: HYDROCORTISONE SOD SUCCINATE 100 MG/2 ML VIAL IV SCH ×2 (09:12→14:00)
[2019-03-18] MEDS: LEVOTHYROXINE SODIUM 50 MCG TABLET GT SCH (09:12)
[2019-03-18] MEDS: CALCITRIOL 0.25 MCG CAPSULE PO SCH (09:14)
--- NOTE | 2019-03-18 09:20 | NUR ---
LOG CHECK SCALER: PATIENT SAFETY OFFICER ( group) is in room, updated with pt.current condition, neuro status, VS, meds, Levophed gtt, JTF is on hold d/t DT consult and high BG level by night nurse report, GT drainage is 300ml over night by gravity, BG [phone](08.00) ISS changed to moderate at morning time, Na 138/pt is getting NaCl 3gm TID, K 3.2
--- NOTE | 2019-03-18 10:10 | NUR ---
GLOBAL PRODUCT MANAGER: DT updated with all above/GJtube status, ordered: continue same formula via JT feeding 40ml/h x 24hrs
--- NOTE | 2019-03-18 10:29 | NUR ---
SCALEHOUSE ATTENDANT: ID TALENT DEVELOPMENT SPECIALIST is in room, updated with all above, see new orders
--- NOTE | 2019-03-18 10:35 | NUR ---
VALVE MACHINE OPERATOR: updated with all above, ordered: stop GT gravity drain, start tube feeding via GT, rate f/u DT recommendation
--- NOTE | 2019-03-18 11:03 | NUR ---
DIRECTOR DATA MANAGEMENT: updated with pt.current status, VS, pressor, GTF, I/O, vent setting, suction amount, see orders
[2019-03-18] MEDS: SODIUM CHLORIDE 1000 MG TABLET.SOL GT SCH ×3 (11:11→16:23)
--- NOTE | 2019-03-18 11:20 | NUR ---
SHEAR OPERATOR: checked [facility] documentation, pt.was getting TF Nepro 75ml/h via GT
[2019-03-18] MEDS ORDERED: NEPRO 1,000 ML BOTTLE GT SCH (11:30)
--- NOTE | 2019-03-18 12:00 | NUR ---
FOAM RUBBER CURER: updated with pt.current status, VS, Na 138/getting NaCl 3gm TID via GT, K 3.2, meds, GTF, ordered HD today
[2019-03-18] MEDS: CEFEPIME 1 GM in IV NS 0.9% 50 ML IV SCH (12:08)
--- NOTE | 2019-03-18 15:47 | NUR ---
PIANO ASSEMBLER: HD nurse updated with pt.VS, Levophed gtt, labs, Dr.Kashani shetty
--- NOTE | 2019-03-18 15:55 | NUR ---
BOAT PULLER: GTF residual 140ml, hold GTF for 2 hrs, keep HOB over 40
--- NOTE | 2019-03-18 17:50 | NUR ---
BENCH ASSEMBLY INSPECTOR: pt is tolerated well for HD, no c/o, GTF on hold since 16.00, residual now 100ml, continue hold for 2 hrs more, will notify next nurse
--- NOTE | 2019-03-18 18:00 | NUR ---
TECHNICAL ENGINEER: reached charge nurse from [facility] and she confirmed: GT to gravity d/t gastroparesis, ok feeding via JT. Connected GT to gravity drain, got 15ml, started JTF with rate 40ml/h, will notify next nurse
[2019-03-18] MEDS: LATANOPROST EYE DROP 0.005% 2.5 ML BOTTLE EACHEYE SCH (21:56)
[2019-03-18] MEDS: INSULIN GLARGINE, 100 UNIT/ML CARTRIDGE SQ SCH (23:01)
[2019-03-19] VITALS (93 sets, daily range): BP systolic 43–155; BP diastolic 21–101
[2019-03-19] MEDS: ALBUTEROL FS 2.5 MG/0.5 ML VIAL.NEB IH SCH ×4 (01:41→20:05)
[2019-03-19] MEDS: IPRATROPIUM NEB FS 0.5 MG/2.5 ML AMPUL.NEB NEB SCH ×4 (01:41→20:05)
[2019-03-19 04:25] LABS: BASOPHILS # (AUTO) 0.2 /CMM (0.0-0.2); BASOPHILS % (AUTO) 0.9 % (0.0-2.0); EOSINOPHILS % (AUTO) 0.2 % (0.0-6.0); HEMATOCRIT 43 % (39-51); HEMOGLOBIN 13.5 g/dL (13.5-17.5); LYMPHOCYTES # (AUTO) 0.4 /CMM (0.8-4.8); LYMPHOCYTES % (AUTO) 1.8 % (20.0-44.0); MEAN CORPUSCULAR HGB CONC 31 g/dl (31.0-36.0); MEAN CORPUSCULAR VOLUME 93 fL (80-96); MONOCYTES # (AUTO) 1.3 /CMM (0.1-1.30); MONOCYTES % (AUTO) 5.4 % (2.0-12.0); NEUTROPHILS # (AUTO) 21.8 /CMM (1.8-8.9); NEUTROPHILS % (AUTO) 91.7 % (43.0-81.0); PLATELET COUNT (AUTO) 272 /CMM (150-450); RED BLOOD CELL COUNT(AUTO) 4.66 MIL/uL (4.5-6.0); WHITE BLOOD COUNT (AUTO) 23.8 K/uL (4.3-11.0)
[2019-03-19 04:45] LABS: ALBUMIN 2.4 g/dL (3.4-5.0); BILIRUBIN,TOTAL 0.5 mg/dL (0.2-1.0); CALCIUM, SERUM 10.2 mg/dL (8.5-10.1); CREATININE 2.6 mg/dL (0.6-1.3); MAGNESIUM 2.3 mg/dL (1.8-2.4); PHOSPHORUS 2.7 mg/dL (2.5-4.9); POTASSIUM 2.9 mmol/L (3.5-5.1); TOTAL PROTEIN, SERUM 8.4 g/dL (6.4-8.2)
[2019-03-19] MEDS: BLOOD SUGAR DIAGNOSTIC 1 EACH STRIP IN SCH ×3 (06:05→17:59)
[2019-03-19] MEDS: POLYVINYL ALCOHOL 15 ML BOTTLE EACHEYE SCH ×3 (06:07→17:13)
[2019-03-19] MEDS: FLUDROCORTISONE 0.1 MG TABLET GT SCH ×3 (06:07→17:08)
[2019-03-19] MEDS: INSULIN REGULAR, HUMAN 100 UNIT/ML 3 ML VIAL SQ PRN ×3 (06:13→17:54)
--- NOTE | 2019-03-19 07:30 | NUR ---
AUTOMOBILE CONTRACT CLERK: pt.is A/Ox3, no pain now, no c/o, SR, on Levophed gtt 2 mcg/m now, continue titrate, O2 over 96% FiO2 35%, no SOB, K 2.9, GT drain gravity 40ml over night, JTF residual WNL, updated, see new orders, included K+ replacement
--- NOTE | 2019-03-19 07:50 | NUR ---
AMMUNITION SPECIALIST: called/updated with pt.current status
--- NOTE | 2019-03-19 07:58 | NUR ---
pt. received on vent support via trach with ff. settings: AC 20, VT400, FIO2 35%, PEEP +5. BREATH SOUNDS COARSE RHONCHI BILATERAL, SXN MOD. AMNT PALE YELLOW SEMI THICK SECRETIONS. VENT ALARM IS ON AND FUNCTIONING WITH AMBUBAG @ BEDSIDE. Addendum: 03/19/19 at 0803 by ROCÍO HEADLEY RT Amended: Links added.
--- NOTE | 2019-03-19 08:00 | NUR ---
GLASS GRINDER: night nurse reported ok to use BP cuff over PICC R.upper arm by state Addendum: 03/19/19 at 0903 by SHARMIN LAN RN Amended: Links added.
[2019-03-19] MEDS: POTASSIUM CHLORIDE 20 MEQ POWDER PACKET NG SCH ×4 (08:26→12:42)
[2019-03-19] MEDS: MIDODRINE HCL (5MG) 5 MG TABLET GT SCH ×3 (08:27→17:09)
[2019-03-19] MEDS: SODIUM CHLORIDE 1000 MG TABLET.SOL GT SCH ×3 (08:27→17:09)
[2019-03-19] MEDS: LEVETIRACETAM SOL (5 ML) 100 MG/ML UDC GT SCH ×2 (08:27→20:53)
[2019-03-19] MEDS: PANTOPRAZOLE 40 MG/PACK PACK GT SCH ×2 (08:27→20:54)
[2019-03-19] MEDS: ASPIRIN 81 MG TAB.CHEW GT SCH (08:28)
[2019-03-19] MEDS: CHLORHEXIDINE GLUCONATE 15 ML UDC MM SCH ×2 (08:28→20:53)
[2019-03-19] MEDS: SERTRALINE HCL 50 MG TABLET GT SCH (08:28)
[2019-03-19] MEDS: LEVOTHYROXINE SODIUM 50 MCG TABLET GT SCH (08:28)
[2019-03-19] MEDS: TIMOLOL 0.5% SOLN OPHTH 5 ML BOTTLE RIGHTEYE SCH ×2 (08:30→17:13)
[2019-03-19] MEDS: MULTIVITAMINS,THERAGRAN 1 UDTAB TABLET GT SCH (08:31)
[2019-03-19] MEDS: CALCITRIOL 0.25 MCG CAPSULE PO SCH (08:31)
[2019-03-19 08:48] LABS: ALBUMIN 2.3 g/dL (3.4-5.0); BILIRUBIN,TOTAL 0.4 mg/dL (0.2-1.0); CALCIUM, SERUM 9.9 mg/dL (8.5-10.1); CREATININE 2.9 mg/dL (0.6-1.3); POTASSIUM 3.1 mmol/L (3.5-5.1); TOTAL PROTEIN, SERUM 8.1 g/dL (6.4-8.2)
--- NOTE | 2019-03-19 10:19 | NUR ---
SEAMLESS TUBE MILL OPERATOR: JT dressing is saturated with yellow/green color discharge, 4x4 gauge was placed under JT external crespo with pull out risk, small yellow/greenish oozing around JT (not feeding color leak), JT bowel sound+, skin redness around JT (see photo), secure redressed JT, ID CAFETERIA CASHIER notified, GT: no leak, no redness, redressed, abdomen: soft, no pain, no distention, charge nurse notified
--- NOTE | 2019-03-19 10:30 | NUR ---
SALESPERSON FLOOR COVERINGS: HD RN updated with pt.VS, pressor, labs, orders, ID JUSTICE COURT JUDGE is in room, updated with pt.current status, VS, I/O, Levophed gtt, GJtubes status, JTF, meds, pt.c/o nausea now, ok to hold feeding during HD IDNP said, FELICIA residual 10ml, was in unit/updated
--- NOTE | 2019-03-19 11:10 | NUR ---
CUSTOMER SUPPORT ASSOCIATE: EDA Sapp is in room, updated with pt.neurostatus, VS, Levophed gtt, HD, BG/moderate ISS, labs, meds, orders, last correct information by SNF confirmation: GT to drain gravity d/t gastroparesis, ok feeding via JT, DT consult done, skin redness around JT, see new orders. Sputum sample collected, pt is unable to urinate now/unable to get urine Cx sample, called to lab for MRSA result pending, ?report
[2019-03-19] MEDS: ACETAMINOPHEN 325 MG TABLET PO PRN (11:39)
[2019-03-19] MEDS: NEPRO 1,000 ML BOTTLE GT PRN (12:36)
[2019-03-19] MEDS: CEFEPIME 1 GM in IV NS 0.9% 50 ML IV SCH (12:37)
[2019-03-19] MEDS ORDERED: POTASSIUM CHLORIDE 20 MEQ POWDER PACKET NG SCH (13:00)
--- NOTE | 2019-03-19 13:15 | NUR ---
SUPPORT STAFF: HD done/ tolerated well, will continue titrate Levo gtt, pt.daughter called/got info re pt VS, HD, meds, pressor, I/O, JTF, orders, POC
--- NOTE | 2019-03-19 18:21 | NUR ---
SHIPPING AND RECEIVING COORDINATOR: pt is A/Ox3, no c/o, no pain, SR, Levophed is off, SBP over 90, O2sat. WNL, no SOB, GT to gravity drain, JTF residual WNL, PM, skin, wound care done, Cefipime, Vanco after HD given, pt. is at bedside/updated with POC
--- NOTE | 2019-03-19 19:50 | NUR ---
PHYSICAL EDUCATION AIDE. INITIAL ASSESSMENT. RECEIVED THE PT REST ON THE BED. AWAKE, ALERT. TRACH TO VENT CONNECTED. SHILEY#6, AC 20,TV 400, PEEP 5. SAT 99%. NO ACUTE DISTRESS NOTED. INDUCTION HEATING EQUIPMENT SETTER SHOWING NSR. IV RT UPPER ARM PICC LINE. TKO RUNNING. HOB ELEVATED. GT AND JT INTACT. GT GRAVITY, JT FEEDING NEPRO 40ML/H. PT IS ANURIC, HOB ELEVATED. AFEBRILE. WILL CONTINUE TO MONITOR VITALS.
[2019-03-19] MEDS: MUPIROCIN OINT 2% 22 GM TUBE SCH (20:54)
[2019-03-19] MEDS: LATANOPROST EYE DROP 0.005% 2.5 ML BOTTLE EACHEYE SCH (22:00)
[2019-03-20] VITALS (17 sets, daily range): BP systolic 96–142; BP diastolic 24–56
[2019-03-20] MEDS: BLOOD SUGAR DIAGNOSTIC 1 EACH STRIP IN SCH ×5 (00:02→23:37)
[2019-03-20] MEDS: POLYVINYL ALCOHOL 15 ML BOTTLE EACHEYE SCH ×5 (00:02→23:38)
[2019-03-20] MEDS: FLUDROCORTISONE 0.1 MG TABLET GT SCH ×5 (00:02→23:38)
[2019-03-20] MEDS: INSULIN REGULAR, HUMAN 100 UNIT/ML 3 ML VIAL SQ PRN ×3 (00:06→12:46)
--- NOTE | 2019-03-20 00:09 | NUR ---
MARINE REPORTER INSULIN [place] UNABLE TO SCAN. PER MD ORDER 22UNITS S/C GIVEN.
[2019-03-20] MEDS: ALBUTEROL FS 2.5 MG/0.5 ML VIAL.NEB IH SCH ×4 (02:16→19:45)
[2019-03-20] MEDS: IPRATROPIUM NEB FS 0.5 MG/2.5 ML AMPUL.NEB NEB SCH ×4 (02:16→19:45)
--- NOTE | 2019-03-20 03:10 | NUR ---
STEWARD/STEWARDESS SMOKE ROOM. AM CARE, ORAL CARE, BED ABTH GIVEN. LINEN CHANGED, REMAINING SAME VENT SETTING TOLERATED WELL. SAT 98%.O ACUTE DISTRESS NOTED, LAP LAYER SHOWING NSR, IV RT UPPER ARM PICC LINE, TKO @5ML/H, GT GRAVITY CONNECTED. JT NEPHRO 40ML/H. HOB ELEVATED. PT IS MOUTH COUGHLIN.
--- NOTE | 2019-03-20 03:14 | NUR ---
COOK SUPERVISOR. AM CARE, ORAL CARE, BED BATH GIVEN LINEN CHANGED, REMAINING SAME VENT SETTING TOLERATED WELL. SAT 99%, NO ACUTE DISTRESS NOTED, ACCESS MANAGER SHOWING NSR. IV RT UPPER ARM PICC LINE INTACT, TKO RUNNING, GT CONNECTED TO GRAVITY. JT NEPHRO 40ML/H. HOB ELEVATED, JT AROUND REDNESS AND GREENESH COLOR DISCHARGE NOTED. DRESSING DONE. WILL CONTINUE TO MONITOR HOB ELEVATED, TURN AND REPOSITION Q2H, AFEBRILE.
[2019-03-20 04:39] LABS: BASOPHILS # (AUTO) 0.2 /CMM (0.0-0.2); BASOPHILS % (AUTO) 1.2 % (0.0-2.0); EOSINOPHILS % (AUTO) 1.7 % (0.0-6.0); HEMATOCRIT 40 % (39-51); HEMOGLOBIN 12.3 g/dL (13.5-17.5); LYMPHOCYTES # (AUTO) 0.4 /CMM (0.8-4.8); LYMPHOCYTES % (AUTO) 2.9 % (20.0-44.0); MEAN CORPUSCULAR HGB CONC 31 g/dl (31.0-36.0); MEAN CORPUSCULAR VOLUME 93 fL (80-96); MONOCYTES % (AUTO) 6.2 % (2.0-12.0); NEUTROPHILS # (AUTO) 13.4 /CMM (1.8-8.9); PLATELET COUNT (AUTO) 235 /CMM (150-450); RED BLOOD CELL COUNT(AUTO) 4.23 MIL/uL (4.5-6.0); WHITE BLOOD COUNT (AUTO) 15.2 K/uL (4.3-11.0)
[2019-03-20 04:45] LABS: MAGNESIUM 2.2 mg/dL (1.8-2.4); PHOSPHORUS 1.7 mg/dL (2.5-4.9)
--- NOTE | 2019-03-20 07:23 | NUR ---
RT PATIENT REC'D TRACHED ON MECH VENT WITH ORDERED SETTINGS HARITHA. VENTS ALARMS CHECKED HARITHA WELL. PATIENT RESPONSIVE, NO DISTRESS ON MECH VENT. SUCTIONED WITH SMALL AMT OF FLEMING SEMITHICK SECRETIONS. AMBU BAG AT HOB. Addendum: 03/20/19 at 1827 by SELINA ANDERSON RT Amended: Links added.
--- NOTE | 2019-03-20 07:45 | NUR ---
TD/ON SITE PROPERTY MANAGER TO TD - ROOM 112#1 PT ARRIVED VIA GURNEY, TRANSFERRED FROM ICU ACCOMPANIED BY ICU NURSES YO AND SOLE. PT ON VENTILATOR WITH RATES SET PRESCRIBED, SATURATING @ 98%, LUNG SOUNDS DIMINISHED, SUCTIONED FOR AIRWAY CLEARANCE. ON TELE WITH SINUS RHYTHM, INVERTED T-WAVE WITH BBB, HR 91. PICC LINE PATENT ON RIGHT UPPER ARM WITH NO S/S OF INFECTION, SL. AV SHUNT ON LEFT UPPER ARM, POSITIVE OF THRILL AND BRUIT, DRESSING INTACT AND CLEAN. JT AND GT FLUSHED, PATENT. JT FEEDING RESUMED @ 40CC/HR. PT IS COMFORTABLE, SCHEDULED AM MEDS TO BE GIVEN. REPORT GIVEN AT BEDSIDE BY RENAY RAM. CL WITHIN REACHED, SAFETY MAINTAINED AND ISOLATION OBSERVED. ON GOING MONITORING.
--- NOTE | 2019-03-20 07:50 | NUR ---
ICU TRANSFER NOTES: Pt transferred to [facility] 112/1 as ordered. Pt left the unit not in any distress. VS WNL. Trach patent & intact. GT remains connected to BSB w/ no output noted. JT for TF, noted redness on the site, endorsed awaiting for wound care consult. IV line access kept patent & intact w/ no s/sx of infection/infiltration noted. Pt on L arm precaution. Report given to Dulce Maria NIÑO for DEWEY. All belongings sent w/ pt including pt's meds. No concerns/issues identified upon transfer.
[2019-03-20 07:59] LABS: CALCIUM, SERUM 9.3 mg/dL (8.5-10.1); CREATININE 2.8 mg/dL (0.6-1.3); POTASSIUM 3.6 mmol/L (3.5-5.1)
[2019-03-20] MEDS: CHLORHEXIDINE GLUCONATE 15 ML UDC MM SCH ×2 (08:49→21:00)
[2019-03-20] MEDS: LEVETIRACETAM SOL (5 ML) 100 MG/ML UDC GT SCH ×2 (08:49→21:00)
[2019-03-20] MEDS: CALCITRIOL 0.25 MCG CAPSULE PO SCH (08:50)
[2019-03-20] MEDS: LEVOTHYROXINE SODIUM 50 MCG TABLET GT SCH (08:50)
[2019-03-20] MEDS: MULTIVITAMINS,THERAGRAN 1 UDTAB TABLET GT SCH (08:50)
[2019-03-20] MEDS: ASPIRIN 81 MG TAB.CHEW GT SCH (08:50)
[2019-03-20] MEDS: SERTRALINE HCL 50 MG TABLET GT SCH (08:50)
[2019-03-20] MEDS: PANTOPRAZOLE 40 MG/PACK PACK GT SCH ×2 (08:50→21:00)
[2019-03-20] MEDS: SODIUM CHLORIDE 1000 MG TABLET.SOL GT SCH ×3 (08:50→17:50)
[2019-03-20] MEDS: MIDODRINE HCL (5MG) 5 MG TABLET GT SCH ×3 (08:50→17:50)
[2019-03-20] MEDS: TIMOLOL 0.5% SOLN OPHTH 5 ML BOTTLE RIGHTEYE SCH ×2 (08:57→17:50)
[2019-03-20] MEDS: MUPIROCIN OINT 2% 22 GM TUBE SCH ×2 (08:57→21:01)
--- NOTE | 2019-03-20 10:00 | NUR ---
TD/RN ROUNDS - EDA RAMIREZ UPDATED PT'S CONDITION, PT SEEN & EXAMINED BY EDA RAMIREZ, NO NEW ORDERS RECEIVED AT THIS TIME. MONITORING.
--- NOTE | 2019-03-20 12:00 | NUR ---
TD/RN NOON ROUNDS PT SUCTIONED AND REPOSITIONED. NO ACUTE CHANGE OF CONDITION NOTED. MONITORING CONTINUED.
[2019-03-20] MEDS: CEFEPIME 1 GM in IV NS 0.9% 50 ML IV SCH (12:41)
[2019-03-20] MEDS: NEPRO 1,000 ML BOTTLE GT PRN (14:51)
--- NOTE | 2019-03-20 19:06 | NUR ---
TD/RN AM SHIFT END NOTES NO ACUTE CHANGE OF CONDITION NOTED SICE PT WAS DOWN-GRADED FROM ICU THIS MORNING. ALL NEEDS MET. PICC LINE INTACT, SL. GT AND JT INTACT AND PATENT, JT FEEDING ON GOING @ 40CC/HR. PT ENDORSED TO PM NURSE TO CONTINUE CARE. CL WITHIN REACHED, SAFETY MAINTAINED AND ISOLATION OBSERVED.
--- NOTE | 2019-03-20 19:32 | NUR ---
TD RN NOTES RECEIVED PT ON BED. SLEEPING
--- NOTE | 2019-03-20 19:33 | NUR ---
TD RN NOTES RECEIVED PT ON BED. SLEEPING. ON TELE MONITOR SR. ON MECH VENT NO RESPIRATORY DISTRESS NOTED. ON GTUBE FEEDING NO RESIDUAL NOTED. IV ACCESS GONZALEZ PICC PATENT AND INTACT. HD ACCESS BERNABE AV SHUNT NO BLEEDING NOTED. HEAD OF BED ELEVATED. SIDE RAILS UP. CALL LIGHT WITHIN REACH. BED ALARM ON. WILL CONTINUE TO MONITOR PT CLOSELY.
[2019-03-20] MEDS: LATANOPROST EYE DROP 0.005% 2.5 ML BOTTLE EACHEYE SCH (22:34)
[2019-03-20] MEDS: INSULIN GLARGINE, 100 UNIT/ML CARTRIDGE SQ SCH ×2 (22:37)
[2019-03-21] VITALS: BP 112/42
[2019-03-21] MEDS: ALBUTEROL FS 2.5 MG/0.5 ML VIAL.NEB IH SCH ×4 (01:48→19:32)
[2019-03-21] MEDS: IPRATROPIUM NEB FS 0.5 MG/2.5 ML AMPUL.NEB NEB SCH ×4 (01:48→19:32)
--- NOTE | 2019-03-21 02:16 | NUR ---
TD RN NOTES PT REFUSED FEEDING FOR NOW. PER PT HE FEELS BLOATED. NO RESIDUAL NOTED ON JTUBE.
[2019-03-21 04:00] VITALS: BP 106/45
[2019-03-21] MEDS: POLYVINYL ALCOHOL 15 ML BOTTLE EACHEYE SCH ×4 (05:05→23:46)
[2019-03-21] MEDS: FLUDROCORTISONE 0.1 MG TABLET GT SCH ×4 (05:05→23:47)
[2019-03-21] MEDS: BLOOD SUGAR DIAGNOSTIC 1 EACH STRIP IN SCH ×4 (05:12→23:46)
[2019-03-21] MEDS: INSULIN REGULAR, HUMAN 100 UNIT/ML 3 ML VIAL SQ PRN ×3 (05:13→17:21)
--- NOTE | 2019-03-21 06:22 | NUR ---
PATIENT RECEIVED ON TRACH TO VENT WITH SETTINGS OF AC 20, 400 VT, 35%, +5. SUCTIONED WITH LAVAGE FOR MINIMAL, THIN, YELLOW SECRETIONS. GIVEN IN-LINE TREATMENTS WITH NO ADVERSE REACTIONS. AMBU BAG AT BEDSIDE. VENT ALARM AUDIBLE AND VISIBLE. VENT PLUGGED INTO RED OUTLET. Addendum: 03/21/19 at 0623 by JOHN CARPENTER RT Amended: Links added.
--- NOTE | 2019-03-21 07:11 | NUR ---
TD RN NOTES NO ACUTE CHANGES NOTED DURING THE SHIFT. NO RESPIRATORY DISTRESS NOTED. BED ALARM ON. WILL ENDORSE TO THE AM NURSE FOR CONTINUITY OF CARE.
[2019-03-21 07:20] LABS: BASOPHILS # (AUTO) 0.1 /CMM (0.0-0.2); BASOPHILS % (AUTO) 0.9 % (0.0-2.0); EOSINOPHILS % (AUTO) 4.8 % (0.0-6.0); HEMATOCRIT 42 % (39-51); HEMOGLOBIN 12.5 g/dL (13.5-17.5); LYMPHOCYTES # (AUTO) 0.6 /CMM (0.8-4.8); LYMPHOCYTES % (AUTO) 4.9 % (20.0-44.0); MEAN CORPUSCULAR HGB CONC 30 g/dl (31.0-36.0); MEAN CORPUSCULAR VOLUME 94 fL (80-96); MONOCYTES # (AUTO) 0.7 /CMM (0.1-1.30); MONOCYTES % (AUTO) 5.8 % (2.0-12.0); NEUTROPHILS # (AUTO) 9.6 /CMM (1.8-8.9); NEUTROPHILS % (AUTO) 83.6 % (43.0-81.0); PLATELET COUNT (AUTO) 253 /CMM (150-450); RED BLOOD CELL COUNT(AUTO) 4.44 MIL/uL (4.5-6.0); WHITE BLOOD COUNT (AUTO) 11.5 K/uL (4.3-11.0)
[2019-03-21 07:23] LABS: CREATININE 3.6 mg/dL (0.6-1.3); MAGNESIUM 2.4 mg/dL (1.8-2.4); PHOSPHORUS 2.6 mg/dL (2.5-4.9); POTASSIUM 3.4 mmol/L (3.5-5.1)
[2019-03-21 08:00] VITALS: BP 135/70
--- NOTE | 2019-03-21 08:00 | NUR ---
TD/RN AM SHIFT INITIAL NOTES RECEIVED PT AWAKE IN BED, PT A/O X 3 ABLE TO MOUTH WORDS, DENIES ANY SYMPTOMS AT THIS TIME, NO ACUTE CHANGE OF CONDITION OR DISTRESS. PT IS VENT DEPENDENT RATES SET PRESCRIBED, SATURATING @ 98%, RESPIRATIONS EVEN AND UNLABORED, SUCTIONED FOR AIRWAY CLEARANCE. ON TELE MONITORING, SINUS RHYTHM, HR 82. PICC LINE PATENT WITH NO S/S OF INFECTION, SL. AV SHUNT POSITIVE OF THRILL & BRUIT, PT IS EXPECTED TO HAVE DIALYSIS TX TODAY. JT FEEDING ON GOING @ 40CC/HR, GT DRAIN TO BAG BY GRAVITY, NOTED WITH CLOUDY WHITE GASTRIC CONTENT. PT IS COMFORTABLE AT THIS TIME, SCHEDULED AM MEDS TO BE GIVEN. CL WITHIN REACHED, SAFETY MAINTAINED AND ISOLATION OBSERVED. ON GOING MONITORING.
[2019-03-21] MEDS: CHLORHEXIDINE GLUCONATE 15 ML UDC MM SCH ×2 (09:03→20:28)
[2019-03-21] MEDS: TIMOLOL 0.5% SOLN OPHTH 5 ML BOTTLE RIGHTEYE SCH ×2 (09:03→17:23)
[2019-03-21] MEDS: SERTRALINE HCL 50 MG TABLET GT SCH (09:04)
[2019-03-21] MEDS: LEVOTHYROXINE SODIUM 50 MCG TABLET GT SCH (09:04)
[2019-03-21] MEDS: LEVETIRACETAM SOL (5 ML) 100 MG/ML UDC GT SCH ×2 (09:04→20:29)
[2019-03-21] MEDS: PANTOPRAZOLE 40 MG/PACK PACK GT SCH ×2 (09:04→20:28)
[2019-03-21] MEDS: MULTIVITAMINS,THERAGRAN 1 UDTAB TABLET GT SCH (09:04)
[2019-03-21] MEDS: CALCITRIOL 0.25 MCG CAPSULE PO SCH (09:04)
[2019-03-21] MEDS: MIDODRINE HCL (5MG) 5 MG TABLET GT SCH ×3 (09:04→17:22)
[2019-03-21] MEDS: MUPIROCIN OINT 2% 22 GM TUBE SCH ×2 (09:05→20:29)
[2019-03-21] MEDS: SODIUM CHLORIDE 1000 MG TABLET.SOL GT SCH ×3 (09:05→17:22)
[2019-03-21] MEDS: ASPIRIN 81 MG TAB.CHEW GT SCH (09:05)
[2019-03-21 12:00] VITALS: BP 149/50
--- NOTE | 2019-03-21 12:00 | NUR ---
TD/RN NOON ROUNDS NO CHANGE OF CONDITION. MONITORING CONTINUED.
[2019-03-21] MEDS: CEFEPIME 1 GM in IV NS 0.9% 50 ML IV SCH (12:27)
[2019-03-21 16:00] VITALS: BP 126/54
--- NOTE | 2019-03-21 16:48 | NUR ---
TD/RN AFTERNOON ROUNDS PM CARE PROVIDED, NO CHANGE OF CONDITION. ON GOING MONITORING.
--- NOTE | 2019-03-21 19:14 | NUR ---
TD/RN AM SHIFT END NOTES NO ACUTE CHANGE OF CONDITION DURING THE SHIFT. ALL NEEDS MET. PICC LINE INTACT ON TKO. PT ENDORSED TO PM NURSE TO CONTINUE CARE, WILL HAVE DIALYSIS TREATMENT TONIGHT. CL WITHIN REACHED, SAFETY MAINTAINED AND ISOLATION OBSERVED.
--- NOTE | 2019-03-21 19:20 | NUR ---
TD RN NOTES RECEIVED PT ON BED. SLEEPING EASILY AROUSABLE, AT BEDSIDE. ON TELE MONITOR SR 2. [facility] SATURATING WELL. GTUBE FEEDING NO RESIDUAL. IV ACCESS PATENT AND INTACT. HEAD OF BED ELEVATED. SIDE RAILS UP. CALL LIGHT WITHIN REACH.BED ALARM ON. WILL CONTINUE TO MONITOR PT CLOSELY.
[2019-03-21 20:00] VITALS: BP 146/61
[2019-03-21] MEDS: LATANOPROST EYE DROP 0.005% 2.5 ML BOTTLE EACHEYE SCH (23:45)
[2019-03-21] MEDS: INSULIN GLARGINE, 100 UNIT/ML CARTRIDGE SQ SCH (23:46)
[2019-03-22] VITALS: BP 151/77
[2019-03-22] MEDS: NEPRO 1,000 ML BOTTLE GT PRN ×2 (00:14→23:21)
[2019-03-22] MEDS: ACETAMINOPHEN 325 MG TABLET PO PRN (00:23)
[2019-03-22] MEDS: IPRATROPIUM NEB FS 0.5 MG/2.5 ML AMPUL.NEB NEB SCH ×4 (01:28→19:53)
[2019-03-22] MEDS: ALBUTEROL FS 2.5 MG/0.5 ML VIAL.NEB IH SCH ×4 (01:28→19:53)
[2019-03-22 04:00] VITALS: BP 147/74
[2019-03-22] MEDS: POLYVINYL ALCOHOL 15 ML BOTTLE EACHEYE SCH ×4 (05:11→23:05)
[2019-03-22] MEDS: FLUDROCORTISONE 0.1 MG TABLET GT SCH ×4 (05:11→23:02)
[2019-03-22] MEDS: BLOOD SUGAR DIAGNOSTIC 1 EACH STRIP IN SCH ×4 (05:13→23:04)
[2019-03-22] MEDS: INSULIN REGULAR, HUMAN 100 UNIT/ML 3 ML VIAL SQ PRN ×4 (05:15→23:08)
--- NOTE | 2019-03-22 07:17 | NUR ---
TD RN NOTES NO ACUTE CHANGES NOTED DURING THE SHIFT. PROVIDED COMFORT AND SAFETY. WILL ENDORSE TO THE AM NURSE FOR CONTINUITY OF CARE.
[2019-03-22 07:46] LABS: BASOPHILS # (AUTO) 0.1 /CMM (0.0-0.2); BASOPHILS % (AUTO) 1.5 % (0.0-2.0); EOSINOPHILS % (AUTO) 5.4 % (0.0-6.0); HEMATOCRIT 43 % (39-51); HEMOGLOBIN 12.9 g/dL (13.5-17.5); LYMPHOCYTES # (AUTO) 0.5 /CMM (0.8-4.8); LYMPHOCYTES % (AUTO) 5.4 % (20.0-44.0); MEAN CORPUSCULAR HGB CONC 30 g/dl (31.0-36.0); MEAN CORPUSCULAR VOLUME 94 fL (80-96); MONOCYTES # (AUTO) 0.6 /CMM (0.1-1.30); MONOCYTES % (AUTO) 6.6 % (2.0-12.0); NEUTROPHILS % (AUTO) 81.1 % (43.0-81.0); PLATELET COUNT (AUTO) 257 /CMM (150-450); RED BLOOD CELL COUNT(AUTO) 4.55 MIL/uL (4.5-6.0); WHITE BLOOD COUNT (AUTO) 8.6 K/uL (4.3-11.0)
[2019-03-22 08:00] VITALS: BP 143/80
[2019-03-22 08:00] LABS: CALCIUM, SERUM 9.1 mg/dL (8.5-10.1); CREATININE 2.7 mg/dL (0.6-1.3); MAGNESIUM 2.1 mg/dL (1.8-2.4); PHOSPHORUS 1.7 mg/dL (2.5-4.9); POTASSIUM 3.2 mmol/L (3.5-5.1)
--- NOTE | 2019-03-22 08:00 | NUR ---
TD/RN AM SHIFT INITIAL NOTES RECEIVED PT AWAKE IN BED, PT A/O X 3 ABLE TO MOUTH WORDS, DENIES ANY SYMPTOMS, NO ACUTE CHANGE OF CONDITION OR DISTRESS. PT IS VENT DEPENDENT RATES SET PRESCRIBED, SATURATING @ 100%, RESPIRATIONS EVEN AND UNLABORED, SUCTIONED FOR AIRWAY CLEARANCE. ON TELE MONITORING, SINUS RHYTHM, HR 77. PICC LINE PATENT WITH NO S/S OF INFECTION, SL. AV SHUNT POSITIVE OF THRILL & BRUIT. JT FEEDING ON GOING @ 40CC/HR, GT DRAIN TO BAG BY GRAVITY, NOTED WITH CLOUDY WHITE GASTRIC CONTENT. PT IS COMFORTABLE AT THIS TIME, SCHEDULED AM MEDS TO BE GIVEN. CL WITHIN REACHED, SAFETY MAINTAINED AND ISOLATION OBSERVED. ON GOING MONITORING.
[2019-03-22] MEDS: CHLORHEXIDINE GLUCONATE 15 ML UDC MM SCH ×2 (08:53→22:07)
[2019-03-22] MEDS: LEVETIRACETAM SOL (5 ML) 100 MG/ML UDC GT SCH ×2 (08:53→22:07)
[2019-03-22] MEDS: LEVOTHYROXINE SODIUM 50 MCG TABLET GT SCH (08:56)
[2019-03-22] MEDS: SODIUM CHLORIDE 1000 MG TABLET.SOL GT SCH ×3 (08:56→16:49)
[2019-03-22] MEDS: PANTOPRAZOLE 40 MG/PACK PACK GT SCH ×2 (08:56→22:07)
[2019-03-22] MEDS: SERTRALINE HCL 50 MG TABLET GT SCH (08:56)
[2019-03-22] MEDS: MUPIROCIN OINT 2% 22 GM TUBE SCH ×2 (08:57→22:07)
[2019-03-22] MEDS: MIDODRINE HCL (5MG) 5 MG TABLET GT SCH ×3 (08:57→16:51)
[2019-03-22] MEDS: MULTIVITAMINS,THERAGRAN 1 UDTAB TABLET GT SCH (08:57)
[2019-03-22] MEDS: ASPIRIN 81 MG TAB.CHEW GT SCH (08:57)
[2019-03-22] MEDS: CALCITRIOL 0.25 MCG CAPSULE PO SCH (08:58)
[2019-03-22] MEDS: TIMOLOL 0.5% SOLN OPHTH 5 ML BOTTLE RIGHTEYE SCH ×2 (08:58→16:50)
--- NOTE | 2019-03-22 09:59 | NUR ---
WOUND CARE CONSULT: PT PRESENTS WITH MULTIPLE SCARS INCLUDING RT SHOULDER BLADE AREA SCAR, SACRAL SCAR, LEFT BELOW KNEE AMPUTATION STUMP AND RT TOES PREVIOUSLY AMPUTATED (SCARRING), ALL PRESENT ON ADMISSION. RECOMMENDATIONS MADE FOR SKIN PROTECTION. DISCUSSED WITH NURSING STAFF. PT NOTED TO HAVE G TUBE TO DRAINAGE BAG AND J TUBE WITH SOME REDNESS AROUND TUBE. SKIN TO BE KEPT CLEAN AND DRY. DISCUSSED WITH NURSING STAFF. PT ON FIRST STEP [facility]. WILL SEE PRN. YODER IN AGREEMENT WITH PLAN OF CARE. PT IS INCONTINENT OF LOOSE STOOL AT TIMES. Addendum: 03/22/19 at 1001 by TRISTAN RENTERIA WNDNU Amended: Links added.
[2019-03-22 12:00] VITALS: BP 133/44
--- NOTE | 2019-03-22 12:00 | NUR ---
TELE1/RN NOON ROUNDS - EDA COOL UPDATED PT'S CONDITION. PT SEEN & EXAMINED BY EDA COOL, ALSO MENTIONED ABOUT PHOS LEVEL, PER SPRAY GUN STRIPER WILL LOOK OVER PT'S LAB RESULTS, NO NEW ORDERS RECEIVED. PT GIVEN NOON MEDS, SUCTIONED AND REPOSITIONED. ON GOING MONITORING.
[2019-03-22] MEDS: CEFEPIME 1 GM in IV NS 0.9% 50 ML IV SCH (12:50)
[2019-03-22 16:00] VITALS: BP 155/68
[2019-03-22] MEDS ORDERED: NEUTRA PHOS 1 POWD.PACKET GT ONE (16:00)
--- NOTE | 2019-03-22 17:30 | NUR ---
TELE1/RN AFTERNOON ROUNDS PM CARE PROVIDED, NO CHANGE OF CONDITION.
--- NOTE | 2019-03-22 19:30 | NUR ---
TELE1/RN AM SHIFT END NOTES NO ACUTE CHANGE OF CONDITION DURING THE SHIFT. ALL NEEDS MET. PICC LINE INTACT. PT ENDORSED TO PM NURSE TO CONTINUE CARE. CL WITHIN REACHED, SAFETY MAINTAINED AND ISOLATION OBSERVED.
[2019-03-22 20:00] VITALS: BP 150/33
--- NOTE | 2019-03-22 20:24 | NUR ---
SOFTWARE SUPPORT ANALYST NOTES RECEIVED PT ON BED. A/O X3. MOUTHWORDS FAMILY AT BEDSIDE. ON TELE MONITOR SR. ON MECH VENT SETTING SATURATING WELL. NO RESPIRATORY DISTRESS NOTED. ON GTUBE FEEDING NO RESIDUAL NOTED. IV ACCESS PATENT AND INTACT. HEAD OF BED ELEVATED. SIDE RAILS UP. CALL LIGHT WITHIN REACH. BED ALARM ON. WILL CONTINUE TO MONITOR PT CLOSELY.
[2019-03-22] MEDS: LATANOPROST EYE DROP 0.005% 2.5 ML BOTTLE EACHEYE SCH (22:07)
[2019-03-22] MEDS: INSULIN GLARGINE, 100 UNIT/ML CARTRIDGE SQ SCH (23:07)
[2019-03-23] VITALS: BP_SYST 138; BP_DIAS 35; BP_DIAS 45
[2019-03-23] MEDS: ALBUTEROL FS 2.5 MG/0.5 ML VIAL.NEB IH SCH ×3 (01:20→12:39)
[2019-03-23] MEDS: IPRATROPIUM NEB FS 0.5 MG/2.5 ML AMPUL.NEB NEB SCH ×3 (01:20→12:39)
[2019-03-23 04:00] VITALS: BP 145/71
[2019-03-23] MEDS: FLUDROCORTISONE 0.1 MG TABLET GT SCH ×2 (05:17→13:14)
[2019-03-23] MEDS: POLYVINYL ALCOHOL 15 ML BOTTLE EACHEYE SCH ×2 (05:18→12:52)
[2019-03-23] MEDS: BLOOD SUGAR DIAGNOSTIC 1 EACH STRIP IN SCH ×2 (05:23→12:20)
[2019-03-23] MEDS: INSULIN REGULAR, HUMAN 100 UNIT/ML 3 ML VIAL SQ PRN (05:23)
--- NOTE | 2019-03-23 07:15 | NUR ---
GRAIN ELEVATOR SUPERINTENDENT NOTES NO ACUTE CHANGES NOTED DURING THE SHIFT. PROVIDED COMFORT AND SAFETY. WILL ENDORSE TO THE AM NURSE FOR CONTINUITY OF CARE.
--- NOTE | 2019-03-23 07:15 | NUR ---
NEWS CLIPPING CUTTER OPENING NOTES REPORT RECEIVED FROM PIT SUPERVISOR RN. RECEIVED PT ON BED. A/O X3. MOUTHWORDS. ON TELE MONITOR SR. ON MECH VENT SETTING SATURATING WELL. NO RESPIRATORY DISTRESS NOTED. ON GTUBE FEEDING NO RESIDUAL NOTED. IV ACCESS PATENT AND INTACT. HEAD OF BED ELEVATED. SIDE RAILS UP. CALL LIGHT WITHIN REACH. BED ALARM ON. WILL CONTINUE TO MONITOR PT CLOSELY.
[2019-03-23 08:00] VITALS: BP 149/65
[2019-03-23 08:30] LABS: HEMOGLOBIN 12.2 g/dL (13.5-17.5); RED BLOOD CELL COUNT(AUTO) 4.24 MIL/uL (4.5-6.0); WHITE BLOOD COUNT (AUTO) 10.5 K/uL (4.3-11.0)
[2019-03-23 08:31] LABS: BASOPHILS % (AUTO) 0.8 % (0.0-2.0); EOSINOPHILS % (AUTO) 4.7 % (0.0-6.0); HEMATOCRIT 40 % (39-51); LYMPHOCYTES # (AUTO) 0.6 /CMM (0.8-4.8); LYMPHOCYTES % (AUTO) 5.6 % (20.0-44.0); MEAN CORPUSCULAR HGB CONC 31 g/dl (31.0-36.0); MEAN CORPUSCULAR VOLUME 93 fL (80-96); MONOCYTES # (AUTO) 0.6 /CMM (0.1-1.30); MONOCYTES % (AUTO) 5.6 % (2.0-12.0); NEUTROPHILS # (AUTO) 8.7 /CMM (1.8-8.9); NEUTROPHILS % (AUTO) 83.3 % (43.0-81.0); PLATELET COUNT (AUTO) 261 /CMM (150-450)
[2019-03-23 08:32] LABS: BASOPHILS # (AUTO) 0.1 /CMM (0.0-0.2)
[2019-03-23 08:37] LABS: CALCIUM, SERUM 8.9 mg/dL (8.5-10.1); CREATININE 3.3 mg/dL (0.6-1.3)
[2019-03-23 08:38] LABS: POTASSIUM 2.8 mmol/L (3.5-5.1)
[2019-03-23] MEDS: LEVETIRACETAM SOL (5 ML) 100 MG/ML UDC GT SCH (09:57)
[2019-03-23] MEDS: ASPIRIN 81 MG TAB.CHEW GT SCH (09:57)
[2019-03-23] MEDS: MIDODRINE HCL (5MG) 5 MG TABLET GT SCH ×2 (09:58→13:14)
[2019-03-23] MEDS: SODIUM CHLORIDE 1000 MG TABLET.SOL GT SCH ×2 (09:59→13:14)
[2019-03-23] MEDS: LEVOTHYROXINE SODIUM 50 MCG TABLET GT SCH (09:59)
[2019-03-23] MEDS: PANTOPRAZOLE 40 MG/PACK PACK GT SCH (09:59)
[2019-03-23] MEDS: SERTRALINE HCL 50 MG TABLET GT SCH (09:59)
[2019-03-23] MEDS: CHLORHEXIDINE GLUCONATE 15 ML UDC MM SCH (10:00)
[2019-03-23] MEDS: CALCITRIOL 0.25 MCG CAPSULE PO SCH (10:00)
[2019-03-23] MEDS: MULTIVITAMINS,THERAGRAN 1 UDTAB TABLET GT SCH (10:02)
[2019-03-23] MEDS: TIMOLOL 0.5% SOLN OPHTH 5 ML BOTTLE RIGHTEYE SCH (10:04)
[2019-03-23] MEDS: MUPIROCIN OINT 2% 22 GM TUBE SCH (10:04)
[2019-03-23] MEDS: POTASSIUM CL. PREMIX PERIPHER. 50 ML IV SCH ×3 (11:10→11:14)
[2019-03-23 12:00] VITALS: BP 151/64
--- NOTE | 2019-03-23 13:00 | NUR ---
PT RECEIVED DIALYSIS TODAY.
[2019-03-23] MEDS: CEFEPIME 1 GM in IV NS 0.9% 50 ML IV SCH (13:16)
[2019-03-23] MEDS ORDERED: MUPI22OI7 MC (14:39)
[2019-03-23 16:00] VITALS: BP 151/71
--- NOTE | 2019-03-23 16:56 | NUR ---
REPORT GIVEN TO CATALINA NIÑO AT [facility] SUB ACUTE. AGREED TO RECEIVE PT. PT DENIES ANY PAIN OR SOB AT PRESENT TIME. PICTURES TAKEN AND IV REMOVED. PT HAS A PICC LINE GONZALEZ. PT HAS BERNABE AV SHUNT. REPORT GIVEN TO EMT WITH AN RT. CAME AND AGREED TO THE TRANSFER.
[2019-03-23] MEDS ORDERED: FLUDROCORTISONE 0.1 MG TABLET GT SCH (18:00)
== END 2019-03-23 16:40 | DRG 870 ==
LOC: ER 14:24 → ICU 16:38 → TELE-TD 03-20 07:46 → TELE1 03-22 13:15
PROVIDERS: ADMIT Registered Nurse; ATTEND Nurse Practitioner Acute Care
PROC: 5A1955Z Respiratory Ventilation, Greater than 96 Consecutive Hours (ICD-10-PCS; principal; 2019-03-17)
PROC: 02HV33Z Insertion of Infusion Device into Superior Vena Cava, Percutaneous Approach (ICD-10-PCS; 2019-03-18)
PROC: B548ZZA Ultrasonography of Superior Vena Cava, Guidance (ICD-10-PCS; 2019-03-18)
PROC: 5A1D70Z Performance of Urinary Filtration, Intermittent, Less than 6 Hours Per Day (ICD-10-PCS; 2019-03-18)
PROC: 5A1D70Z Performance of Urinary Filtration, Intermittent, Less than 6 Hours Per Day (ICD-10-PCS; 2019-03-18)
PROC: 5A1D70Z Performance of Urinary Filtration, Intermittent, Less than 6 Hours Per Day (ICD-10-PCS; 2019-03-19)
PROC: 5A1D70Z Performance of Urinary Filtration, Intermittent, Less than 6 Hours Per Day (ICD-10-PCS; 2019-03-23)
DX: A41.9 Sepsis, unspecified organism (principal); N18.6 End stage renal disease; R65.21 Severe sepsis with septic shock; J18.9 Pneumonia, unspecified organism; E43 Unspecified severe protein-calorie malnutrition; J96.20 Acute and chronic respiratory failure, unspecified whether with hypoxia or hypercapnia; I21.A1 Myocardial infarction type 2; I50.33 Acute on chronic diastolic (congestive) heart failure; Z99.11 Dependence on respirator [ventilator] status; D68.59 Other primary thrombophilia; I13.2 Hypertensive heart and chronic kidney disease with heart failure and with stage 5 chronic kidney disease, or end stage renal disease; Z68.1 Body mass index [BMI] 19.9 or less, adult; J98.11 Atelectasis; J95.851 Ventilator associated pneumonia; E11.22 Type 2 diabetes mellitus with diabetic chronic kidney disease; Z93.0 Tracheostomy status; Z99.2 Dependence on renal dialysis; Z93.1 Gastrostomy status; R13.10 Dysphagia, unspecified; Z95.1 Presence of aortocoronary bypass graft; Z89.512 Acquired absence of left leg below knee; Z89.421 Acquired absence of other right toe(s); Z86.73 Personal history of transient ischemic attack (TIA), and cerebral infarction without residual deficits; Y95 Nosocomial condition; Z83.3 Family history of diabetes mellitus; Z79.899 Other long term (current) drug therapy; Z79.890 Hormone replacement therapy; Z79.82 Long term (current) use of aspirin; Z79.4 Long term (current) use of insulin; Z88.5 Allergy status to narcotic agent; Z79.51 Long term (current) use of inhaled steroids; I48.91 Unspecified atrial fibrillation; I25.10 Atherosclerotic heart disease of native coronary artery without angina pectoris; I25.2 Old myocardial infarction; D63.1 Anemia in chronic kidney disease; E03.9 Hypothyroidism, unspecified; Z98.890 Other specified postprocedural states; E11.43 Type 2 diabetes mellitus with diabetic autonomic (poly)neuropathy; E11.51 Type 2 diabetes mellitus with diabetic peripheral angiopathy without gangrene; E78.5 Hyperlipidemia, unspecified; E87.6 Hypokalemia; F32.9 Major depressive disorder, single episode, unspecified; H40.9 Unspecified glaucoma; K31.84 Gastroparesis; Z22.322 Carrier or suspected carrier of Methicillin resistant Staphylococcus aureus; I27.20 Pulmonary hypertension, unspecified; I70.0 Atherosclerosis of aorta; Y84.9 Medical procedure, unspecified as the cause of abnormal reaction of the patient, or of later complication, without mention of misadventure at the time of the procedure; Y82.9 Unspecified medical devices associated with adverse incidents; Y92.129 Unspecified place in nursing home as the place of occurrence of the external cause; Z74.09 Other reduced mobility
CPT/HCPCS: 31720; 36415; 71045-TC; 80048-TC; 80053-TC; 80061-TC; 80076-TC; 80202-TC; 82533; 82962-TC; 83605-TC; 83735-TC; 83880; 84100-TC; 84439-TC; 84443-TC; 84484-TC; 85025-TC; 85730-TC; 86706; 87040-TC; 87070-TC; 87081-TC; 87340; 90935-TC; 93307-TC; 94003-TC; 94760-TC; 94762-TC; 94799-TC; A4216; A6402; C1751; G0378; J0692; J1720; J1815; J1953; J2543; J3370; J3480; J7030; J7040; J7050; J7060

== ENCOUNTER 2019-03-28 18:25 | Inpatient (IN) | payer OTHER, MEDICARE ==
[~2019-03-28] VITALS: Ht 175.3 cm; Wt 58.1 kg
[~2019-03-28 18:25] MED LIST changes: +ACET-2605 JT; +ACET-868 JT; +ACET-868 PO; +ALBU2.5V13 IH; +ASPI-1169 JT; +BLOO-668 IN; +CHLO473M5 MM; -DORZ10DR10 EACHEYE; -FERR325T23 JT; +INSU100I26 SQ; +INSU100V30 SQ; -INSU100V7 SQ; +MUPI22OI7 MC; +NUT.237L67 GT; +OMEP40CA37 JT; -PANT40TA4 JT; +PHEN1SUP42 RC; +POLY15DR40 EACHEYE; +SODI1TAB3 JT
--- NOTE | 2019-03-28 18:45 | NUR ---
PT HARJINDER MARY FOR NOTED BLOOD IN STOOL AT 1300 TODAY, PT IS AWAKE AND ALERT, ON MECH VENT VIA TRACH, HOOKED TO MONITOR, V/S STABLE, KEPT RESTED AND COMFORTABLE, WILL CONTINUE TO MONITOR.
[2019-03-28] MEDS ORDERED: GABA-534 JT (18:48)
[2019-03-28] MEDS ORDERED: AMIN236L JT (18:48)
--- NOTE | 2019-03-28 18:50 | NUR ---
SEEN AND EXAMINED BY SUPA ARMENTA NP.
[2019-03-28] MEDS ORDERED: PANTOPRAZOLE 40 MG VIAL IV ONE (19:00)
[2019-03-28] MEDS ORDERED: IV NS 0.9% 500 ML BAG IV ONE (19:00)
--- NOTE | 2019-03-28 19:10 | NUR ---
BLOOD DRAWNED AND SENT TO LAB.
[2019-03-28 19:13] LABS: BASOPHILS # (AUTO) 0.1 /CMM (0.0-0.2); EOSINOPHILS % (AUTO) 3.5 % (0.0-6.0); HEMATOCRIT 35 % (39-51); LYMPHOCYTES # (AUTO) 0.5 /CMM (0.8-4.8); LYMPHOCYTES % (AUTO) 5.3 % (20.0-44.0); MEAN CORPUSCULAR HGB CONC 32 g/dl (31.0-36.0); MEAN CORPUSCULAR VOLUME 90 fL (80-96); MONOCYTES # (AUTO) 0.5 /CMM (0.1-1.30); MONOCYTES % (AUTO) 5.3 % (2.0-12.0); NEUTROPHILS # (AUTO) 8.1 /CMM (1.8-8.9); NEUTROPHILS % (AUTO) 84.9 % (43.0-81.0); PLATELET COUNT (AUTO) 203 /CMM (150-450); RED BLOOD CELL COUNT(AUTO) 3.82 MIL/uL (4.5-6.0); WHITE BLOOD COUNT (AUTO) 9.6 K/uL (4.3-11.0)
--- NOTE | 2019-03-28 19:23 | NUR ---
REPORT MALISSA TO RENAY CURTIS FOR DEWEY.
[2019-03-28] MEDS ORDERED: NEXIUM 40 MG VIAL IV ONE (19:30)
[2019-03-28 19:31] LABS: ALBUMIN 1.9 g/dL (3.4-5.0); BILIRUBIN,DIRECT 0.1 mg/dL (0.0-0.2); BILIRUBIN,TOTAL 0.3 mg/dL (0.2-1.0); CALCIUM, SERUM 8.2 mg/dL (8.5-10.1); CREATININE 3.3 mg/dL (0.6-1.3); TOTAL PROTEIN, SERUM 6.2 g/dL (6.4-8.2)
[2019-03-28 19:34] LABS: POTASSIUM 2.5 mmol/L (3.5-5.1)
--- NOTE | 2019-03-28 19:47 | NUR ---
VENT SETTINGS: TV 400 O2 40% PEEP 5
--- NOTE | 2019-03-28 20:02 | NUR ---
pt received on vent via trach from transport ambulance. airway patent secure via trach tie. settings as charted. pt alert. ambu bag at bedside alarms set and audible. disconnect alarms checked suctioned a small amount of blood tinged secretions head of bed at 30 degrees pt receiving no breathign tx at this time Addendum: 03/28/19 at 2002 by GRACE FAUST RT Amended: Links added.
--- NOTE | 2019-03-28 20:12 | NUR ---
CALLED , TRANSFERRED CALL TO .
--- NOTE | 2019-03-28 20:42 | NUR ---
REPORT GIVEN TO RENAY HARRIS FOR DEWEY
[2019-03-28] MEDS ORDERED: POTASSIUM CL. PREMIX PERIPHER. 100 ML ONE (21:18)
[2019-03-28] MEDS: POTASSIUM CL. PREMIX PERIPHER. 50 ML IV SCH ×2 (21:32→23:15)
--- NOTE | 2019-03-28 22:30 | NUR ---
RN NOTES ADMITTED PATIENT FROM ED DUE TO BLOOD IN STOOL, PATIENT CAME FROM [facility]. ALERT AND ORIENTED X3, VENT DEPENDENT, RESPIRATORY STATUS STABLE, NO COMPLAIN OF PAIN, HAS G TUBE USED FOR DRAIN, J TUBE FOR FEEDING. BERNABE AV SHUNT, THRILL AND BRUIT NOTED, PER SKIN ASSESSMENT, BILATERAL BUTTOCKS STAGE 2, BERNABE SKIN TEAR FROM TAPE, IS CONCERN ABOUT THE RIGHT LEG STUMP TINY ABRASION. PATIENT ABLE TO SUCTION SELF, ALSO IS REQUESTING NEURO CONSULT FOR BUE TREMORS.
[2019-03-29] VITALS (7 sets, daily range): BP systolic 104–152; BP diastolic 31–56
[2019-03-29] MEDS ORDERED: ONDANSETRON HCL/PF 4 MG/2 ML VIAL IVP PRN (00:30)
[2019-03-29] MEDS ORDERED: NEPRO VAN 237 ML CAN GT SCH (00:30)
[2019-03-29] MEDS ORDERED: ACETAMINOPHEN 325 MG TABLET PO PRN ×2 (00:30)
[2019-03-29] MEDS ORDERED: ACETAMINOPHEN 325 MG TABLET MC PRN (00:30)
[2019-03-29] MEDS ORDERED: Z GUARD REMEDY 2 OZ OINT TP PRN (00:30)
[2019-03-29] MEDS ORDERED: ZOLPIDEM TARTRATE 5 MG TABLET PO PRN (00:30)
[2019-03-29] MEDS ORDERED: MAGNESIUM HYDROXIDE 30 ML UDC PO PRN (00:30)
[2019-03-29] MEDS ORDERED: DEXTROSE 50%-WATER 50 ML DISP.SYRIN IV PRN (00:30)
[2019-03-29] MEDS: ALBUTEROL FS 2.5 MG/0.5 ML VIAL.NEB IH SCH ×4 (01:30→20:31)
--- NOTE | 2019-03-29 02:25 | NUR ---
RT PATIENT ADMITTED AND RECEIVED FROM ER. ORDERED SETTINGS AC 16, 400, 40%, +5. TRACH TUBE IN PLACE, PATENT, AND SECURED WITH TRACH TIE. VENT PLUGGED IN RED OUTLET WITH ALARMS ON AND AUDIBLE. AMBU BAG AND BACK UP TRACH BY THE BEDSIDE. WILL CONTINUE TO MONITOR. DEEP TRACH SX WITH COLON AND LAVAGED WITH NS. MOD THICK PALE YELLOW SECRETIONS. Addendum: 03/29/19 at 0231 by ELIAZAR LAINEZ RT Amended: Links added.
[2019-03-29] MEDS: NEPRO 1,000 ML BOTTLE JT SCH (02:36)
[2019-03-29] MEDS: IV D5/0.45 NACL 1,000 ML IV SCH ×2 (02:37→20:58)
[2019-03-29] MEDS: BLOOD SUGAR DIAGNOSTIC 1 EACH STRIP IN SCH ×3 (05:54→17:10)
[2019-03-29] MEDS ORDERED: BLOOD SUGAR DIAGNOSTIC 1 EACH STRIP IN SCH (06:00)
[2019-03-29] MEDS: LEVOTHYROXINE SODIUM 50 MCG TABLET GT SCH (06:03)
[2019-03-29] MEDS: FERROUS SULFATE UDC 300 MG/5 ML UDC NG SCH ×3 (06:03→17:02)
[2019-03-29] MEDS: FLUDROCORTISONE 0.1 MG TABLET JT SCH ×3 (06:03→17:02)
[2019-03-29] MEDS: INSULIN REGULAR, HUMAN 100 UNIT/ML 3 ML VIAL SQ PRN ×3 (06:09→17:15)
--- NOTE | 2019-03-29 06:41 | NUR ---
RN NOTES PM SHIFT PATIENT IS AWAKE, NO COMPLAIN OF PAIN, STABLE ON VENTILATOR, ABLE TO SUCTION SELF, BM X2 WITH BLOOD AND MALODOROUS, ANURIC, GT SITE DRAIN HAS 100 CC MILKY DRAINAGE, CONTINUE HOME MEDS
--- NOTE | 2019-03-29 07:26 | NUR ---
RN NOTES DR. LI MADE AWARE OF 'S REQUEST FOR NEURO CONSULT.
--- NOTE | 2019-03-29 08:02 | NUR ---
[facility] RN NOTE RECEIVED PATIENT IN BED WITH TRACH TO VENT SETTING ORDERED , AMBU BAG AT HOB AT ALL TIME , WITH G TUBE FEEDING ORDERED, KEEP HOB ELEVATED AT ALL TIME , ON TELE MONITOR SR HR 74, WITH G TUBE TO GRAVITY AND G TUBE TO FEEDING , RT UPPER ARM PICC LINE IN PLACE , ALL NEEDS ATTENDED ,NOTED SKIN DIAPHORETIC BERNABE AV SHUNT IN PLACE,WILL CONT TO MONITOR CLOSELY ,
[2019-03-29] MEDS ORDERED: ACETAMINOPHEN ES 500 MG TABLET GT PRN ×2 (09:00)
[2019-03-29] MEDS ORDERED: TIMOLOL 0.5% SOLN OPHTH 5 ML BOTTLE EACHEYE SCH (09:00)
[2019-03-29] MEDS ORDERED: SODIUM CHLORIDE 1000 MG TABLET.SOL GT SCH (09:00)
[2019-03-29] MEDS: SERTRALINE HCL 50 MG TABLET GT SCH (09:02)
[2019-03-29] MEDS: LEVETIRACETAM SOL (5 ML) 100 MG/ML UDC GT SCH ×2 (09:02→21:36)
[2019-03-29] MEDS: MIDODRINE HCL (5MG) 5 MG TABLET GT SCH ×3 (09:03→17:03)
[2019-03-29] MEDS: CALCITRIOL 0.25 MCG CAPSULE GT SCH (09:03)
[2019-03-29] MEDS: MULTIVITAMINS,THERAGRAN 1 UDTAB TABLET GT SCH (09:03)
[2019-03-29] MEDS: CHLORHEXIDINE GLUCONATE 15 ML UDC MM SCH ×2 (09:03→21:35)
[2019-03-29] MEDS: GABAPENTIN 300 MG CAPSULE GT SCH (09:04)
[2019-03-29] MEDS: TIMOLOL 0.5% SOLN OPHTH 5 ML BOTTLE RIGHTEYE SCH ×3 (09:21→17:04)
[2019-03-29] MEDS: MUPIROCIN OINT 2% 22 GM TUBE MC SCH ×2 (09:22→17:03)
--- NOTE | 2019-03-29 11:00 | NUR ---
RECEIVING MANAGER NOTE SEEN BY DR STONE GI DOCTOR NOTIFIED THAT STILL HAS SMAL LAMT OF BLOODY STOOL ,STATED TO MONITOR IF MORE SEVERE ,WILL F\U
[2019-03-29] MEDS: POLYVINYL ALCOHOL 15 ML BOTTLE EACHEYE SCH ×2 (11:48→17:04)
[2019-03-29] MEDS: SODIUM CHLORIDE 1000 MG TABLET.SOL GT SCH ×2 (12:02→17:03)
--- NOTE | 2019-03-29 12:51 | NUR ---
TLE RN NOTE CONT ON G TUBE FEEDING, NOT IN DISTRESS
--- NOTE | 2019-03-29 14:18 | NUR ---
VOCATIONAL REHABILITATION TECHNICIAN NOTE RT AT BEDSIDE, ON BREATHING TX MADE BM KEEP CLEAN DRY, NO BLOOD NOTED AT THIS TIME, WILL F\U
[2019-03-29] MEDS: ATORVASTATIN 40 MG TABLET GT SCH (17:05)
--- NOTE | 2019-03-29 17:20 | NUR ---
OUTSIDE RESIDENTIAL SALES PROFESSIONAL NOTE CONSENT FOR HD OBTAINED , SIGNED
--- NOTE | 2019-03-29 17:29 | NUR ---
RT Pt received trach'd and on [facility] vent w ordered settings. Vent is plugged into red outlet w alarms set and audible. Trach is secure and patent. Bmv @ [facility]. Pt is awake and alert. Hhn tx's given and pt sx'd w no adverse reactions. No respiratory distress noted t/o shift. Addendum: 03/29/19 at 1822 by MARITA NORIEGA RT Amended: Links added.
--- NOTE | 2019-03-29 17:56 | NUR ---
VACCINE MANAGER NOTE HD STARTED ORDERED , AT BEDSIDE CONT ON G TUBE FEEDING ORDERED NOT IN DISTRESS
--- NOTE | 2019-03-29 18:28 | NUR ---
NUCLEAR EQUIPMENT DESIGN ENGINEER NOTE STILL ON HD ,NOT IN DISTRESS
--- NOTE | 2019-03-29 19:15 | NUR ---
BODY AND FENDER WORKER NOTE PATIENT IN BED RECEIVING DIALYSIS. PATIENT A/OX 3 ABLE TO MOUTH WORDS. PATIENTS AT BEDSIDE. PATIENT HAS NO S/S OF DISTRESS AT THIS TIME. DENIES CHEST PAIN/SOB. PATIENT BREATHING EVEN AND UNLABORED. PATIENT IS RUNNING GTUBE FEEDING 40 ML/HR MINIMAL RESIDUAL NOTED. PATIENT HAS GONZALEZ PICCL INE RUNNING D5 1/2 NS AT 50 ML/HR, NO S/S OF INFECTION/INFILTRATION. PATIENT HR SR ON THE MONITOR. SAFETY PRECAUTIONS IN PLACE, POC DISCUSSED WITH FAMILY. RN WILL CONTINUE TO MONITOR CALL LIGHT WITHIN REACH.
[2019-03-29] MEDS: LATANOPROST EYE DROP 0.005% 2.5 ML BOTTLE EACHEYE SCH (21:36)
[2019-03-30] VITALS: BP 136/36
[2019-03-30] MEDS: FLUDROCORTISONE 0.1 MG TABLET JT SCH ×4 (00:19→17:19)
[2019-03-30] MEDS: BLOOD SUGAR DIAGNOSTIC 1 EACH STRIP IN SCH ×4 (00:19→17:20)
[2019-03-30 00:20] LABS: BASOPHILS # (AUTO) 0.1 /CMM (0.0-0.2); BASOPHILS % (AUTO) 0.8 % (0.0-2.0); HEMATOCRIT 33 % (39-51); HEMOGLOBIN 10.4 g/dL (13.5-17.5); LYMPHOCYTES # (AUTO) 0.5 /CMM (0.8-4.8); LYMPHOCYTES % (AUTO) 5.8 % (20.0-44.0); MEAN CORPUSCULAR HGB CONC 32 g/dl (31.0-36.0); MEAN CORPUSCULAR VOLUME 91 fL (80-96); MONOCYTES # (AUTO) 0.5 /CMM (0.1-1.30); NEUTROPHILS # (AUTO) 7.9 /CMM (1.8-8.9); NEUTROPHILS % (AUTO) 85.4 % (43.0-81.0); PLATELET COUNT (AUTO) 196 /CMM (150-450); RED BLOOD CELL COUNT(AUTO) 3.57 MIL/uL (4.5-6.0); WHITE BLOOD COUNT (AUTO) 9.2 K/uL (4.3-11.0)
[2019-03-30] MEDS: FERROUS SULFATE UDC 300 MG/5 ML UDC NG SCH ×5 (00:20→17:20)
[2019-03-30] MEDS: INSULIN REGULAR, HUMAN 100 UNIT/ML 3 ML VIAL SQ PRN ×2 (00:21→12:36)
[2019-03-30] MEDS: POLYVINYL ALCOHOL 15 ML BOTTLE EACHEYE SCH ×4 (00:22→17:17)
[2019-03-30 00:46] LABS: ALBUMIN 1.9 g/dL (3.4-5.0); BILIRUBIN,TOTAL 0.3 mg/dL (0.2-1.0); CREATININE 2.6 mg/dL (0.6-1.3); TOTAL PROTEIN, SERUM 6.1 g/dL (6.4-8.2)
[2019-03-30 00:51] LABS: POTASSIUM 2.6 mmol/L (3.5-5.1)
--- NOTE | 2019-03-30 00:52 | NUR ---
TITLE SEARCH MANAGER NOTE LAB CALLED TO REPORT CRITICAL VALUE POTASSIUM 2.6/ BLOOD SUGAR 351. PATIENT ALREADY GIVEN INSULIN PER SLIDING SCALE.
--- NOTE | 2019-03-30 00:59 | NUR ---
DIETARY TECH NOTE [facility] CONTACTED FOR PATIENT'S POTASSIUM, MESSAGE SENT OUT VIA EXCHANGE.
[2019-03-30] MEDS: ALBUTEROL FS 2.5 MG/0.5 ML VIAL.NEB IH SCH ×4 (01:00→20:21)
--- NOTE | 2019-03-30 01:15 | NUR ---
SHIPPER AND RECEIVING NOTE MD ROMERO CALLED TO ORDER 40 MEQ POTASSIUM IV AND 60 MEQ GIVEN VIA GTUBE.
[2019-03-30] MEDS ORDERED: POTASSIUM CHLORIDE 20 MEQ POWDER PACKET GT SCH (01:30)
[2019-03-30] MEDS: POTASSIUM CL. PREMIX PERIPHER. 50 ML IV SCH ×4 (01:46→04:39)
[2019-03-30] MEDS: POTASSIUM CHLORIDE 20 MEQ POWDER PACKET GT SCH ×3 (01:46→05:51)
[2019-03-30 04:00] VITALS: BP 138/56
[2019-03-30] MEDS: LEVOTHYROXINE SODIUM 50 MCG TABLET GT SCH (06:16)
--- NOTE | 2019-03-30 06:53 | NUR ---
HAND PAINT MIXER NOTE PATIENT TOLERATED THE NIGHT, ENDORSED POC TO AM FOR DEWEY. ALL CARE RENDERED ORDERED SAFETY PRECAUTIONS IN PLACE.
[2019-03-30 07:34] LABS: BASOPHILS # (AUTO) 0.1 /CMM (0.0-0.2); BASOPHILS % (AUTO) 1.1 % (0.0-2.0); EOSINOPHILS % (AUTO) 4.5 % (0.0-6.0); HEMATOCRIT 33 % (39-51); HEMOGLOBIN 10.4 g/dL (13.5-17.5); LYMPHOCYTES # (AUTO) 0.5 /CMM (0.8-4.8); LYMPHOCYTES % (AUTO) 6.3 % (20.0-44.0); MEAN CORPUSCULAR HGB CONC 32 g/dl (31.0-36.0); MEAN CORPUSCULAR VOLUME 91 fL (80-96); MONOCYTES # (AUTO) 0.5 /CMM (0.1-1.30); MONOCYTES % (AUTO) 5.8 % (2.0-12.0); NEUTROPHILS % (AUTO) 82.3 % (43.0-81.0); PLATELET COUNT (AUTO) 194 /CMM (150-450); RED BLOOD CELL COUNT(AUTO) 3.59 MIL/uL (4.5-6.0); WHITE BLOOD COUNT (AUTO) 8.5 K/uL (4.3-11.0)
--- NOTE | 2019-03-30 07:35 | NUR ---
BEAUTICIAN APPRENTICE OPENING RECEIVED PATIENT AWAKE, BP 77/41. PATIENT REPORTS DIZZINESS. BLOOD GLUCOSE 118. NOTIFIED BRUSHER AND SHEARER AMY, WHO SAID TO CONTACT MD WHEN LIST IS OUT. Addendum: 03/30/19 at 0759 by MEDHAT JAY RN TELE MONITOR ATTACHED, SINUS RHYTHM HR 70 PER REAL ESTATE CLOSING COORDINATOR
[2019-03-30 07:36] LABS: CREATININE 2.7 mg/dL (0.6-1.3); MAGNESIUM 2.2 mg/dL (1.8-2.4); POTASSIUM 5.4 mmol/L (3.5-5.1)
[2019-03-30 08:00] VITALS: BP_SYST 103; BP_SYST 89; BP_DIAS 23; BP_DIAS 54
--- NOTE | 2019-03-30 08:07 | NUR ---
BP NOW 103/54. WILL CONTINUE TO MONITOR
[2019-03-30] MEDS: MUPIROCIN OINT 2% 22 GM TUBE MC SCH ×2 (09:00→17:17)
[2019-03-30] MEDS: TIMOLOL 0.5% SOLN OPHTH 5 ML BOTTLE RIGHTEYE SCH ×3 (09:00→17:17)
[2019-03-30] MEDS: MULTIVITAMINS,THERAGRAN 1 UDTAB TABLET GT SCH (09:20)
[2019-03-30] MEDS: SODIUM CHLORIDE 1000 MG TABLET.SOL GT SCH ×3 (09:20→17:20)
[2019-03-30] MEDS: GABAPENTIN 300 MG CAPSULE GT SCH (09:20)
[2019-03-30] MEDS: CHLORHEXIDINE GLUCONATE 15 ML UDC MM SCH ×2 (09:20→21:47)
[2019-03-30] MEDS: LEVETIRACETAM SOL (5 ML) 100 MG/ML UDC GT SCH ×2 (09:20→21:47)
[2019-03-30] MEDS: CALCITRIOL 0.25 MCG CAPSULE GT SCH (09:21)
[2019-03-30] MEDS: SERTRALINE HCL 50 MG TABLET GT SCH (09:21)
[2019-03-30] MEDS: MIDODRINE HCL (5MG) 5 MG TABLET GT SCH ×3 (09:23→17:00)
[2019-03-30 12:00] VITALS: BP 145/55
[2019-03-30] MEDS: ATORVASTATIN 40 MG TABLET GT SCH (17:25)
[2019-03-30] MEDS: IV D5/0.45 NACL 1,000 ML IV SCH (17:25)
[2019-03-30] MEDS: NEPRO 1,000 ML BOTTLE JT SCH (17:26)
--- NOTE | 2019-03-30 19:29 | NUR ---
TIMBER WATCHMAN NOTE PATIENT IN BED SLEEPING IS AT BESIDE. REPORT GIVEN BEDSIDE. NO S/S OF ACUTE DISTRESS AT THIS TIME. PATIENT HR SR ON THE MONITOR. PATIENT C/O OF HEADACHE, TYLENOL 1000 MG GIVEN PER PRN MD ORDER. PATIENT BREATHING EVEN AND UNLABORED, PATIENT TOLERATING VENT SETTINGS WELL. PATIENT GONZALEZ PICC PATIENT INTACT NO S/S OF INFECTION/ INFILTRATION. RN WILL CONTINUE TO MONITOR FOR S/SN OF CHANGES. GTUBE DRAINING TO GRAVITY, J TUBE RUNNING 55 ML'HR OF NEPRO NO RESIDUAL NOTED. SAFETY PRECAUTIONS IN PLACE POC DISCUSSED WITH / PATIENT. CALL LIGHT WITHIN REACH.
[2019-03-30 20:00] VITALS: BP 107/49
[2019-03-30] MEDS: LATANOPROST EYE DROP 0.005% 2.5 ML BOTTLE EACHEYE SCH (23:17)
[2019-03-31] VITALS: BP 105/47
--- NOTE | 2019-03-31 00:16 | NUR ---
EMERGENCY COMMUNICATIONS DISPATCHER NOTE PATIENT REFUSES IRON SUPPLEMENT. PATIENT C/O STOMACH CRAMPS POST ADMINISTRATION. RN EDUCATED PATIENT ON IMPORTANCE OF MED COMPLIANCE AND IRON SUPPLEMENT, PATIENT STILL REFUSES. MD AWARE.
[2019-03-31] MEDS: FLUDROCORTISONE 0.1 MG TABLET JT SCH ×4 (00:21→17:17)
[2019-03-31] MEDS: BLOOD SUGAR DIAGNOSTIC 1 EACH STRIP IN SCH ×4 (00:21→17:18)
[2019-03-31] MEDS: POLYVINYL ALCOHOL 15 ML BOTTLE EACHEYE SCH ×4 (00:25→17:18)
[2019-03-31] MEDS: INSULIN REGULAR, HUMAN 100 UNIT/ML 3 ML VIAL SQ PRN ×3 (00:27→18:43)
[2019-03-31] MEDS: ALBUTEROL FS 2.5 MG/0.5 ML VIAL.NEB IH SCH ×4 (01:26→20:47)
[2019-03-31 04:00] VITALS: BP 105/47
--- NOTE | 2019-03-31 05:01 | NUR ---
RT NOTED PT [facility] ON AC MODE. NO RESP DISTRESS OR SOB NOTED. PT AWAKE AND ALERT. TRACH IS PATENT AND SECURED. SX'D FOR THICK MOD AMT OF PALE YELLOW SECRETIONS. ALARMS ARE SET AND AUDIBLE. VENT PLUGGED INTO RED OUTLET. AMBU BAG BEDSIDE. WILL CONTINUE TO MONITOR. Addendum: 03/31/19 at 0504 by SUSHANT SOUSA RT Amended: Links added.
[2019-03-31] MEDS: FERROUS SULFATE UDC 300 MG/5 ML UDC NG SCH ×5 (05:15→17:53)
[2019-03-31] MEDS: LEVOTHYROXINE SODIUM 50 MCG TABLET GT SCH (06:41)
--- NOTE | 2019-03-31 07:10 | NUR ---
CUSTOMER SUPPORT ASSOCIATE OPENING NOTES RECEIVED REPORT FROM SPECIAL TESTER RN. PT IS RESTING IN BED CURRENTLY RN RESTARTING G-TUBE FEEDING. PT HAS A BERNABE PICC RUNNING D5 1/2NS @50ML/HR. PT DENIES ANY PAIN PT IS A&OX3 AND IS ABLE TO MOUTH WORDS. PT IS TOLERATING VENT WELL AND SAT AT 98%. PT HAS SUCTION YANKAUR IN HAND PER HIS PREFERENCE. BED IS LOCKED AND IN LOWEST POSITION WITH CALL LIGHT IN REACH WILL CONTINUE TO MONITOR.
--- NOTE | 2019-03-31 07:33 | NUR ---
LABORER DRIVER NOTE PATIENT TOLERATED THE NIGHT WELL NO S/S OF ACUTE CHANGES ENDORSED POC TO AM FOR DEWEY.
[2019-03-31 08:00] VITALS: BP 136/72
[2019-03-31] MEDS: CALCITRIOL 0.25 MCG CAPSULE GT SCH (08:34)
[2019-03-31] MEDS: SODIUM CHLORIDE 1000 MG TABLET.SOL GT SCH ×3 (08:35→17:16)
[2019-03-31] MEDS: MULTIVITAMINS,THERAGRAN 1 UDTAB TABLET GT SCH (08:35)
[2019-03-31] MEDS: GABAPENTIN 300 MG CAPSULE GT SCH (08:35)
[2019-03-31] MEDS: CHLORHEXIDINE GLUCONATE 15 ML UDC MM SCH ×2 (08:35→21:34)
[2019-03-31] MEDS: SERTRALINE HCL 50 MG TABLET GT SCH (08:35)
[2019-03-31] MEDS: LEVETIRACETAM SOL (5 ML) 100 MG/ML UDC GT SCH ×2 (08:35→21:33)
[2019-03-31] MEDS: MIDODRINE HCL (5MG) 5 MG TABLET GT SCH ×4 (08:36→17:00)
[2019-03-31] MEDS: MUPIROCIN OINT 2% 22 GM TUBE MC SCH ×2 (08:36→17:17)
[2019-03-31] MEDS: TIMOLOL 0.5% SOLN OPHTH 5 ML BOTTLE RIGHTEYE SCH ×3 (08:45→17:17)
[2019-03-31 12:00] VITALS: BP 156/76
[2019-03-31] MEDS: IV D5/0.45 NACL 1,000 ML IV SCH ×2 (13:33→21:43)
[2019-03-31 16:00] VITALS: BP 164/63
[2019-03-31] MEDS: ATORVASTATIN 40 MG TABLET GT SCH (17:21)
--- NOTE | 2019-03-31 19:04 | NUR ---
pt requested for feeding to be turned down to 50 ml/hr
--- NOTE | 2019-03-31 19:30 | NUR ---
HAND STAMPER CLOSING NOTES GAVE REPORT TO COIL CUTTER RN. PT IS RESTING IN BED CURRENTLY RN RESTARTING G-TUBE FEEDING. PT HAS A BERNABE PICC RUNNING D5 1/2NS @50ML/HR. PT DENIES ANY PAIN PT IS A&OX3 AND IS ABLE TO MOUTH WORDS. PT IS TOLERATING VENT WELL AND SAT AT 98%. PT HAS SUCTION YANKAUR IN HAND PER HIS PREFERENCE. BED IS LOCKED AND IN LOWEST POSITION WITH CALL LIGHT IN REACH WILL ENDORSE CONTINUITY OF CARE TO COIL CUTTER RN.
[2019-03-31 20:00] VITALS: BP 151/60
--- NOTE | 2019-03-31 20:28 | NUR ---
TELE/RN ENTRY NOTES PATIENT IN BED RESTING COMFORTABLY AT THIS TIME. PATIENT NOTED WITH NO S/S OF ACUTE DISTRESS. RESPIRATION EVEN AND UNLABORED. NO SOB NOTES. TRACH INTACT, PATENT, CONNECTED TO VENT WITH PRESCRIBED SETTINGS. PATIENT A/O X4, DENIES ANY PAIN OR DISCOMFORT NOTED AT THIS TIME. G TUBE IN PLACE, PATENT, CONNECTED TO FEEDING ORDERED. NO RESIDUAL NOTED. BERNABE PICC LINE NOTED WITH NO S/S OF INFECTION. LEFT UA AV SHUNT NOTED WITH NO ACTIVE BLEEDING, NO S/S OF INFECTION. THRILL AND BRUIT PRESENT. SAFETY MAINTAINED, BED AT THE LOWEST POSITION, LOCKED. CALL LIGHT WITHIN REACH. CONTINUE TO MONITOR PATIENT PER PLAN OF CARE.
[2019-03-31] MEDS: LATANOPROST EYE DROP 0.005% 2.5 ML BOTTLE EACHEYE SCH (21:36)
[2019-04-01] VITALS: BP_SYST 140; BP_SYST 148; BP_DIAS 45; BP_DIAS 66
[2019-04-01] MEDS: FLUDROCORTISONE 0.1 MG TABLET JT SCH ×4 (00:06→17:40)
[2019-04-01] MEDS: FERROUS SULFATE UDC 300 MG/5 ML UDC NG SCH ×4 (00:06→17:23)
[2019-04-01] MEDS: BLOOD SUGAR DIAGNOSTIC 1 EACH STRIP IN SCH ×4 (00:10→17:40)
[2019-04-01] MEDS: POLYVINYL ALCOHOL 15 ML BOTTLE EACHEYE SCH ×4 (00:10→17:42)
[2019-04-01] MEDS: INSULIN REGULAR, HUMAN 100 UNIT/ML 3 ML VIAL SQ PRN ×4 (00:17→17:51)
[2019-04-01] MEDS: NEPRO 1,000 ML BOTTLE JT SCH (00:59)
[2019-04-01] MEDS: ALBUTEROL FS 2.5 MG/0.5 ML VIAL.NEB IH SCH ×4 (02:14→19:40)
[2019-04-01 04:00] VITALS: BP 138/70
[2019-04-01] MEDS: LEVOTHYROXINE SODIUM 50 MCG TABLET GT SCH (06:42)
--- NOTE | 2019-04-01 07:08 | NUR ---
TELE/RN EXIT NOTES PATIENT NOTED WITH NO S/S OF ACUTE DISTRESS. RESPIRATION EVEN AND UNLABORED. NO SOB NOTED. TRACH INTACT, PATENT, CONNECTED TO VENT WITH PRESCRIBED SETTINGS. PATIENT DENIES ANY PAIN OR DISCOMFORT. ON TELE MONITORING WITH SR AT [address], PATENT, CONNECTED TO FEEDING ORDERED. NO RESIDUAL NOTED. BERNABE PICC LINE NOTED WITH NO S/S OF INFECTION. LEFT UA AV SHUNT NOTED WITH NO ACTIVE BLEEDING, NO S/S OF INFECTION. THRILL AND BRUIT PRESENT. ALL DUE MEDS GIVEN ORDERD. KEPT CLEAN AND DRY. ALL NEEDS ATTANDENT. SAFETY MAINTAINED, BED AT THE LOWEST POSITION, LOCKED. CALL LIGHT WITHIN REACH. WILL ENDORSE TO AM SHIFT NURSE FOR DEWEY
--- NOTE | 2019-04-01 07:20 | NUR ---
CARD DOFFER OPENING NOTES RECEIVED REPORT FROM BANKING MANAGEMENT CONSULTING MANAGER RN. PT IS RESTING IN BED NO SIGNS OF SOB OR PAIN NOTED AT THIS TIME. PT HAS A BERNABE PICC RUNNING D5 1/2NS @50ML/HR. PT DENIES ANY PAIN PT IS A&OX3 AND IS ABLE TO MOUTH WORDS. PT IS TOLERATING VENT WELL AND SAT AT 98%. PT HAS SUCTION YANKAUR IN HAND PER HIS PREFERENCE. BED IS LOCKED AND IN LOWEST POSITION WITH CALL LIGHT IN REACH WILL CONTINUE TO MONITOR.
[2019-04-01 07:25] LABS: BASOPHILS # (AUTO) 0.1 /CMM (0.0-0.2); BASOPHILS % (AUTO) 0.7 % (0.0-2.0); EOSINOPHILS % (AUTO) 2.8 % (0.0-6.0); HEMATOCRIT 28 % (39-51); HEMOGLOBIN 8.8 g/dL (13.5-17.5); LYMPHOCYTES # (AUTO) 0.4 /CMM (0.8-4.8); LYMPHOCYTES % (AUTO) 3.9 % (20.0-44.0); MEAN CORPUSCULAR HGB CONC 32 g/dl (31.0-36.0); MEAN CORPUSCULAR VOLUME 93 fL (80-96); MONOCYTES # (AUTO) 0.6 /CMM (0.1-1.30); MONOCYTES % (AUTO) 6.2 % (2.0-12.0); NEUTROPHILS # (AUTO) 8.7 /CMM (1.8-8.9); NEUTROPHILS % (AUTO) 86.4 % (43.0-81.0); PLATELET COUNT (AUTO) 166 /CMM (150-450); RED BLOOD CELL COUNT(AUTO) 3.01 MIL/uL (4.5-6.0); WHITE BLOOD COUNT (AUTO) 10.1 K/uL (4.3-11.0)
[2019-04-01 07:56] LABS: CALCIUM, SERUM 7.8 mg/dL (8.5-10.1); CREATININE 2.3 mg/dL (0.6-1.3); PHOSPHORUS 1.6 mg/dL (2.5-4.9)
[2019-04-01 08:00] VITALS: BP 115/39
[2019-04-01 08:14] LABS: POTASSIUM 2.8 mmol/L (3.5-5.1)
--- NOTE | 2019-04-01 08:29 | NUR ---
CRITICAL LAB VALUES REPORTED. CONTACTED ORDERS RECEIVED.
[2019-04-01] MEDS: CALCITRIOL 0.25 MCG CAPSULE GT SCH (08:52)
[2019-04-01] MEDS: SODIUM CHLORIDE 1000 MG TABLET.SOL GT SCH ×3 (08:52→17:40)
[2019-04-01] MEDS: MULTIVITAMINS,THERAGRAN 1 UDTAB TABLET GT SCH (08:52)
[2019-04-01] MEDS: CHLORHEXIDINE GLUCONATE 15 ML UDC MM SCH ×2 (08:52→21:33)
[2019-04-01] MEDS: LEVETIRACETAM SOL (5 ML) 100 MG/ML UDC GT SCH ×2 (08:52→21:33)
[2019-04-01] MEDS: GABAPENTIN 300 MG CAPSULE GT SCH (08:52)
[2019-04-01] MEDS: SERTRALINE HCL 50 MG TABLET GT SCH (08:52)
[2019-04-01] MEDS: MIDODRINE HCL (5MG) 5 MG TABLET GT SCH ×3 (08:53→17:00)
[2019-04-01] MEDS: MUPIROCIN OINT 2% 22 GM TUBE MC SCH ×2 (08:53→17:41)
[2019-04-01] MEDS: TIMOLOL 0.5% SOLN OPHTH 5 ML BOTTLE RIGHTEYE SCH ×3 (08:54→17:42)
[2019-04-01] MEDS: POTASSIUM CL. PREMIX PERIPHER. 50 ML IV SCH ×4 (10:13→14:02)
[2019-04-01 12:00] VITALS: BP 122/43
[2019-04-01] MEDS ORDERED: NEUTRA PHOS 1 POWD.PACKET GT ONE (12:30)
--- NOTE | 2019-04-01 13:09 | NUR ---
pt requested feeding to be turned down to 40 ml/hr. originally from 60 ml/hr
[2019-04-01 16:00] VITALS: BP 138/72
[2019-04-01] MEDS: ATORVASTATIN 40 MG TABLET GT SCH (17:40)
--- NOTE | 2019-04-01 18:31 | NUR ---
SPOKE WITH PT'S SHE EXPRESSED HER CONCERN ABOUT PT HAVING TREMORS WHEN HE RAISES HIS EXTREMITIES. MD FREITAS MADE AWARE STATES HE PUT A REQUEST FOR A NEURO CONSULT.
--- NOTE | 2019-04-01 19:09 | NUR ---
DRESSING MACHINE OPERATOR CLOSING NOTES GAVE REPORT TO GEM EXPERT RN. PT IS RESTING IN BED WITH AT BEDSIDE, NO SIGNS OF SOB OR PAIN NOTED AT THIS TIME. PT HAS A BERNABE PICC RUNNING D5 1/2NS @40ML/HR PER HIS REQUEST. PT DENIES ANY PAIN PT IS A&OX3 AND IS ABLE TO MOUTH WORDS. PT IS TOLERATING VENT WELL AND SAT AT 98%. PT HAS SUCTION YANKAUER IN HAND PER HIS PREFERENCE. BED IS LOCKED AND IN LOWEST POSITION WITH CALL LIGHT IN REACH WILL ENDORSE CONTINUITY OF CARE TO GEM EXPERT RN.
[2019-04-01 20:00] VITALS: BP 153/98
--- NOTE | 2019-04-01 20:00 | NUR ---
RN INITIAL NOTES RECEIVED PT IS RESTING IN BED NO SIGNS OF SOB OR PAIN NOTED AT THIS TIME. PT HAS A BERNABE PICC RUNNING D5 1/2NS @50ML/HR. PT DENIES ANY PAIN PT IS A&OX3 AND IS ABLE TO MOUTH WORDS. PT IS TOLERATING VENT WELL AND SAT AT 98%. AT BEDSIDE. BED IS LOCKED AND IN LOWEST POSITION WITH CALL LIGHT IN REACH. WILL CONTINUE TO MONITOR.
[2019-04-01] MEDS: LATANOPROST EYE DROP 0.005% 2.5 ML BOTTLE EACHEYE SCH (21:34)
[2019-04-01] MEDS: IV D5/0.45 NACL 1,000 ML IV SCH (21:41)
[2019-04-02] VITALS: BP 148/45
[2019-04-02] MEDS: BLOOD SUGAR DIAGNOSTIC 1 EACH STRIP IN SCH ×4 (00:15→18:26)
[2019-04-02] MEDS: FERROUS SULFATE UDC 300 MG/5 ML UDC NG SCH ×4 (00:15→18:00)
[2019-04-02] MEDS: FLUDROCORTISONE 0.1 MG TABLET JT SCH ×4 (00:16→18:26)
[2019-04-02] MEDS: POLYVINYL ALCOHOL 15 ML BOTTLE EACHEYE SCH ×4 (00:16→18:27)
[2019-04-02] MEDS: INSULIN REGULAR, HUMAN 100 UNIT/ML 3 ML VIAL SQ PRN ×4 (00:22→18:42)
[2019-04-02] MEDS: ALBUTEROL FS 2.5 MG/0.5 ML VIAL.NEB IH SCH ×3 (02:08→13:29)
[2019-04-02 04:00] VITALS: BP 116/47
--- NOTE | 2019-04-02 07:01 | NUR ---
RN CLOSING NOTES PT IS RESTING IN BED, NO SIGNS OF SOB OR PAIN NOTED AT THIS TIME. PT HAS A R UA PICC RUNNING D5 1/2NS @50ML/HR.TUBE FEEING INFUSING. PT DENIES ANY PAIN, PT IS A&OX3 AND IS ABLE TO MOUTH WORDS. PT IS TOLERATING VENT WELL AND SAT AT 98%. PT HAS SUCTION YANKAUER IN HAND PER HIS PREFERENCE. BED IS LOCKED AND IN LOWEST POSITION WITH CALL LIGHT IN REACH. WILL ENDORSE CONTINUITY OF CARE TO AM SHIFT RN.
--- NOTE | 2019-04-02 07:25 | NUR ---
JUNIOR ACCOUNTANT BOOKKEEPER OPENING NOTES RECEIVED REPORT FROM WELT BEATER RN. PT IS RESTING IN BED, NO SIGNS OF SOB OR PAIN NOTED AT THIS TIME. PT HAS A BERNABE PICC RUNNING D5 1/2NS. PT HAS A J-TUBE FEEDING @40ML/HR PER HIS REQUEST. PT DENIES ANY PAIN PT IS A&OX3 AND IS ABLE TO MOUTH WORDS. PT IS TOLERATING VENT WELL AND SAT AT 98%. PT HAS SUCTION YANKAUER IN HAND PER HIS PREFERENCE. BED IS LOCKED AND IN LOWEST POSITION WITH CALL LIGHT IN REACH WILL CONTINUE TO MONITOR.
[2019-04-02] MEDS: LEVOTHYROXINE SODIUM 50 MCG TABLET GT SCH (07:30)
[2019-04-02 08:00] VITALS: BP 116/66
[2019-04-02] MEDS: MULTIVITAMINS,THERAGRAN 1 UDTAB TABLET GT SCH (09:14)
[2019-04-02] MEDS: CHLORHEXIDINE GLUCONATE 15 ML UDC MM SCH (09:14)
[2019-04-02] MEDS: SODIUM CHLORIDE 1000 MG TABLET.SOL GT SCH ×3 (09:15→16:42)
[2019-04-02] MEDS: SERTRALINE HCL 50 MG TABLET GT SCH (09:15)
[2019-04-02] MEDS: LEVETIRACETAM SOL (5 ML) 100 MG/ML UDC GT SCH (09:15)
[2019-04-02] MEDS: GABAPENTIN 300 MG CAPSULE GT SCH (09:15)
[2019-04-02] MEDS: CALCITRIOL 0.25 MCG CAPSULE GT SCH (09:15)
[2019-04-02] MEDS: TIMOLOL 0.5% SOLN OPHTH 5 ML BOTTLE RIGHTEYE SCH ×3 (09:16→16:42)
[2019-04-02] MEDS: MUPIROCIN OINT 2% 22 GM TUBE MC SCH ×2 (09:16→16:42)
[2019-04-02] MEDS: MIDODRINE HCL (5MG) 5 MG TABLET GT SCH ×3 (09:21→16:37)
[2019-04-02 12:00] VITALS: BP 163/74
[2019-04-02 12:40] LABS: BASOPHILS # (AUTO) 0.1 /CMM (0.0-0.2); BASOPHILS % (AUTO) 0.7 % (0.0-2.0); EOSINOPHILS % (AUTO) 4.5 % (0.0-6.0); HEMATOCRIT 30 % (39-51); HEMOGLOBIN 9.3 g/dL (13.5-17.5); LYMPHOCYTES # (AUTO) 0.4 /CMM (0.8-4.8); LYMPHOCYTES % (AUTO) 4.5 % (20.0-44.0); MEAN CORPUSCULAR HGB CONC 31 g/dl (31.0-36.0); MEAN CORPUSCULAR VOLUME 94 fL (80-96); MONOCYTES # (AUTO) 0.5 /CMM (0.1-1.30); MONOCYTES % (AUTO) 5.9 % (2.0-12.0); NEUTROPHILS # (AUTO) 7.2 /CMM (1.8-8.9); NEUTROPHILS % (AUTO) 84.4 % (43.0-81.0); PLATELET COUNT (AUTO) 176 /CMM (150-450); RED BLOOD CELL COUNT(AUTO) 3.18 MIL/uL (4.5-6.0); WHITE BLOOD COUNT (AUTO) 8.5 K/uL (4.3-11.0)
[2019-04-02] MEDS: NEPRO 1,000 ML BOTTLE JT SCH (14:29)
[2019-04-02 16:00] VITALS: BP 158/60
[2019-04-02 16:37] VITALS: BP 158/50
[2019-04-02] MEDS: ATORVASTATIN 40 MG TABLET GT SCH (18:26)
--- NOTE | 2019-04-02 19:15 | NUR ---
D/C NOTES PT DENIES ANY PAIN OR SOB AT TIME OF DISCHARGE. REPORT GIVEN TO CATALINA AT [facility] PT WILL BE GOING INTO ROOM 15-C. PT IS BEING TRANSPORTED BY AMBULANCE. EXITCARE GIVEN TO EMT'S WITH REPORT. PT HAD NO BELONGINGS AND LAST SET OF VITALS TAKEN.
== END 2019-04-02 19:10 | DRG 253 ==
LOC: ER 18:30 → TELE1 21:09 → TELE-TD 03-29 01:42 → TELE1 03-29 11:54
PROVIDERS: ADMIT Internal Medicine; ATTEND Internal Medicine
PROC: 5A1945Z Respiratory Ventilation, 24-96 Consecutive Hours (ICD-10-PCS; principal; 2019-03-28)
DX: K92.2 Gastrointestinal hemorrhage, unspecified (principal); Z99.11 Dependence on respirator [ventilator] status; J96.11 Chronic respiratory failure with hypoxia; K31.84 Gastroparesis; Z93.0 Tracheostomy status; E11.43 Type 2 diabetes mellitus with diabetic autonomic (poly)neuropathy; E11.22 Type 2 diabetes mellitus with diabetic chronic kidney disease; E27.40 Unspecified adrenocortical insufficiency; N18.6 End stage renal disease; I69.354 Hemiplegia and hemiparesis following cerebral infarction affecting left non-dominant side; Z99.2 Dependence on renal dialysis; I13.11 Hypertensive heart and chronic kidney disease without heart failure, with stage 5 chronic kidney disease, or end stage renal disease; I25.10 Atherosclerotic heart disease of native coronary artery without angina pectoris; I25.2 Old myocardial infarction; Z95.1 Presence of aortocoronary bypass graft; E87.6 Hypokalemia; Z88.5 Allergy status to narcotic agent; E78.5 Hyperlipidemia, unspecified; E03.9 Hypothyroidism, unspecified; Z89.512 Acquired absence of left leg below knee; Z98.890 Other specified postprocedural states; Z79.51 Long term (current) use of inhaled steroids; Z79.4 Long term (current) use of insulin; Z79.899 Other long term (current) drug therapy; Z79.82 Long term (current) use of aspirin; Z93.1 Gastrostomy status; Z79.890 Hormone replacement therapy; J98.11 Atelectasis
CPT/HCPCS: 31720; 36415; 71045-TC; 80048-TC; 80053-TC; 80061-TC; 80076-TC; 82962-TC; 83690-TC; 83735-TC; 84100-TC; 85025-TC; 85730-TC; 86706; 86803; 86850-TC; 87081-TC; 87350; 90935-TC; 94002-TC; 94003-TC; 94760-TC; 94762-TC; 94799-TC; A6402; G0378; J1815; J1953; J3480; J3490; J7040; J7050

== ENCOUNTER 2019-06-02 00:33 | Inpatient (IN) | payer OTHER, MEDICARE ==
[~2019-06-02] VITALS: Ht 165.1 cm; Wt 55.8 kg
[~2019-06-02 00:33] MED LIST changes: +AMIN236L JT; +GABA-534 JT
--- NOTE | 2019-06-02 00:50 | NUR ---
HARJINDERA FROM [facility] FOR GT REPLACEMENT. PT NOTED W/ A JT ON THE L ABD WHICH IS PATENT AND IN PLACE AND A JG TUBE ON MIDDLE ABD CONNECTED TO A VAZQUEZ CATH BAG W/ A MINIMAL BROWNIGH FLUID DISCHARGE. PATIENT ALERT AND ORIENTED, VENT DEPENDENT W/ TRACH. NON- VERBAL DUE TO TRACHEOSTOMY. RT AT THE BED SIDE. PT WAS PLACED ON A MONITOR ,
--- NOTE | 2019-06-02 01:08 | NUR ---
NOTED PT DIAPHORETIC, FSBS DONE. BS:40. DR CHINO MADE AWARE W/ VERBAL ORDER FOR D50 ONE AMP IV.
[2019-06-02] MEDS ORDERED: DEXTROSE 50%-WATER 50 ML DISP.SYRIN ONE (01:14)
[2019-06-02] MEDS ORDERED: DEXTROSE 50%-WATER 50 ML DISP.SYRIN IVP ONE (01:30)
--- NOTE | 2019-06-02 01:44 | NUR ---
REPEAT BS:103, MD AWARE.
[2019-06-02 01:58] LABS: BASOPHILS # (AUTO) 0.2 /CMM (0.0-0.2); BASOPHILS % (AUTO) 1.3 % (0.0-2.0); EOSINOPHILS % (AUTO) 21.7 % (0.0-6.0); HEMATOCRIT 33 % (39-51); HEMOGLOBIN 10.4 g/dL (13.5-17.5); LYMPHOCYTES # (AUTO) 0.5 /CMM (0.8-4.8); LYMPHOCYTES % (AUTO) 3.5 % (20.0-44.0); MEAN CORPUSCULAR HGB CONC 32 g/dl (31.0-36.0); MEAN CORPUSCULAR VOLUME 92 fL (80-96); MONOCYTES # (AUTO) 0.8 /CMM (0.1-1.30); MONOCYTES % (AUTO) 5.8 % (2.0-12.0); NEUTROPHILS # (AUTO) 9.1 /CMM (1.8-8.9); NEUTROPHILS % (AUTO) 67.7 % (43.0-81.0); PLATELET COUNT (AUTO) 269 /CMM (150-450); RED BLOOD CELL COUNT(AUTO) 3.59 MIL/uL (4.5-6.0); WHITE BLOOD COUNT (AUTO) 13.4 K/uL (4.3-11.0)
[2019-06-02 02:04] LABS: ALBUMIN 2.7 g/dL (3.4-5.0); BILIRUBIN,DIRECT 0.1 mg/dL (0.0-0.2); BILIRUBIN,TOTAL 0.3 mg/dL (0.2-1.0); CALCIUM, SERUM 9.5 mg/dL (8.5-10.1); POTASSIUM 3.3 mmol/L (3.5-5.1)
--- NOTE | 2019-06-02 02:19 | NUR ---
FSBS:76MD MADE AWARE W/ AN ORDER FOR IVF HYDRATION .
[2019-06-02] MEDS ORDERED: NPH,100V SQ (02:25)
[2019-06-02] MEDS ORDERED: DOCU100C36 JT (02:25)
[2019-06-02] MEDS ORDERED: TRAM50TA2 JT (02:25)
[2019-06-02] MEDS ORDERED: ONDA4TAB5 JT (02:25)
[2019-06-02] MEDS ORDERED: FOLI0.8T2 GT (02:25)
[2019-06-02] MEDS ORDERED: LATA2.5D7 EACHEYE (02:25)
[2019-06-02] MEDS ORDERED: DEXT15DR6 EACHEYE (02:25)
[2019-06-02] MEDS ORDERED: IV D5/0.45 NACL 1,000 ML IV ONE (02:30)
[2019-06-02 02:57] LABS: EOSINOPHILS % (MANUAL) 18 % (0-4); LYMPHOCYTES % (MANUAL) 4 % (16-48); MONOCYTES % (MANUAL) 7 % (0-11.0); NEUTROPHILS % (MANUAL) 71 (42-76)
--- NOTE | 2019-06-02 03:28 | NUR ---
REPORT GIVEN TO ELISA
[2019-06-02 04:08] VITALS: BP 111/64
--- NOTE | 2019-06-02 04:11 | NUR ---
PT WAS TRANSFERRED TO 113 UNDER ACLS
[2019-06-02] MEDS ORDERED: IV D5/0.45 NACL 1,000 ML IV PRN (04:30)
[2019-06-02] MEDS: DEXTROSE 50%-WATER 50 ML DISP.SYRIN IV PRN ×3 (05:01→11:48)
[2019-06-02] MEDS: BLOOD SUGAR DIAGNOSTIC 1 EACH STRIP IN SCH ×4 (06:00→23:15)
[2019-06-02 06:51] LABS: BASOPHILS # (AUTO) 0.1 /CMM (0.0-0.2); BASOPHILS % (AUTO) 0.9 % (0.0-2.0); EOSINOPHILS % (AUTO) 17.3 % (0.0-6.0); HEMATOCRIT 33 % (39-51); HEMOGLOBIN 10.4 g/dL (13.5-17.5); LYMPHOCYTES # (AUTO) 0.5 /CMM (0.8-4.8); LYMPHOCYTES % (AUTO) 4.5 % (20.0-44.0); MEAN CORPUSCULAR HGB CONC 31 g/dl (31.0-36.0); MEAN CORPUSCULAR VOLUME 91 fL (80-96); MONOCYTES # (AUTO) 0.6 /CMM (0.1-1.30); MONOCYTES % (AUTO) 5.2 % (2.0-12.0); NEUTROPHILS # (AUTO) 8.1 /CMM (1.8-8.9); NEUTROPHILS % (AUTO) 72.1 % (43.0-81.0); PLATELET COUNT (AUTO) 243 /CMM (150-450); RED BLOOD CELL COUNT(AUTO) 3.65 MIL/uL (4.5-6.0); WHITE BLOOD COUNT (AUTO) 11.3 K/uL (4.3-11.0)
[2019-06-02 07:01] LABS: CALCIUM, SERUM 9.3 mg/dL (8.5-10.1); POTASSIUM 3.4 mmol/L (3.5-5.1)
--- NOTE | 2019-06-02 07:20 | NUR ---
RAAD RN OPENING NOTES RECEIVED REPORT FROM [facility] SHIFT NURSE. JT ON THE L ABDOMEN WHICH IS PATENT AND IN PLACE. JG TUBE ON MIDDLE ABDOMEN CONNECTED TO A VAZQUEZ CATH BAG, VAZQUEZ CATH BAG WITH 200ML OF BROWNISH URINE. PATIENT ALERT, VENT DEPENDENT W/ TRACH. NON- VERBAL DUE TO TRACHEOSTOMY. VENT SETTINGS: SHILEY 6, TIDAL VOLUME 400, SIMV 10, FIO2 40, PIPA 5. PT ON DIRECTOR OF RESIDENTIAL SERVICES, SINUS RHYTHM. RESPIRATIONS ARE EASY, UNLABORED, NO SIGNS AND SYMPTOMS OF RESPIRATORY DISTRESS. D5 1/2 NS 1000ML INFUSING AT 50ML/HR ON RIGHT HAND G20. SITE IS CLEAN, INTACT, NO SIGNS OF INFILTRATION NOTED. RIGHT FOREARM G20, SITE IS CLEAN, INTACT, DRY. BED PLACED IN LOW POSITION, LOCKED, CALL LIGHT WITHIN REACH. Addendum: 06/02/19 at 0902 by SARTHAK ALCALA RN D5 1/2NS INFUSING INTO RIGHT WRIST G 22.
[2019-06-02] MEDS: INSULIN REGULAR, HUMAN 100 UNIT/ML 3 ML VIAL SQ PRN ×2 (07:44→17:36)
--- NOTE | 2019-06-02 07:46 | NUR ---
RN NOTES RECEIVED PATIENT FROM ER VIA STRETCHER ACCOMPANIED BY RT AND 2 STAFF IN STABLE CONDITION. VITAL SIGNS WNL. IN NO APPARENT DISTRESS, BREATHING EVEN AND UNLABORED. VENT SETTING WELL TOLERATED. HOB ELEVATED. SUCTION SMALL AMOUNT OF THIN LOOSE SECRETION. ALERT AND ORIENTED. NON VERBAL DUE TO TRACH. NO COMPLAINT OF PAIN OR DISCOMFORT. SKIN ASSESSMENT DONE. PICTURES IN THE CHART. BLOOD SUGAR WENT DOWN TO 39 AT 0500. DEXTROSE 50% ADMINISTERED PER PROTOCOL. RECHECKED SUGAR LEVEL AT 0600, WENT UP TO 106. ENDORSED TO NEXT SHIFT FOR CONTINUITY OF CARE.
[2019-06-02 08:00] VITALS: BP 126/74
[2019-06-02] MEDS ORDERED: ACETAMINOPHEN 650 MG/20.3 ML UDC PO PRN (08:30)
[2019-06-02] MEDS ORDERED: ACETAMINOPHEN 650 MG/20.3 ML UDC JT PRN ×3 (08:30→09:39)
[2019-06-02] MEDS: CHLORHEXIDINE GLUCONATE 15 ML UDC MM SCH ×2 (08:58→20:15)
[2019-06-02] MEDS ORDERED: SHARK LIVER OIL RC PRN (09:00)
[2019-06-02] MEDS ORDERED: COCOA BUTTER RC PRN (09:00)
[2019-06-02] MEDS: PROSTAT (PYXIS) 30 ML UDC JT SCH ×2 (09:00→17:00)
[2019-06-02] MEDS: DOCUSATE SODIUM LIQ 100 MG/10 ML UDC JT SCH ×2 (09:00→16:06)
[2019-06-02] MEDS ORDERED: NEPRO 1,000 ML BOTTLE JT PRN (09:00)
[2019-06-02] MEDS: LEVOTHYROXINE SODIUM 50 MCG TABLET NG SCH (09:00)
[2019-06-02] MEDS ORDERED: PHENYLEPHRINE RC PRN (09:00)
[2019-06-02] MEDS: SODIUM CHLORIDE 1000 MG TABLET GT SCH ×3 (09:00→16:06)
[2019-06-02] MEDS: ASPIRIN 81 MG TAB.CHEW GT SCH (09:00)
[2019-06-02] MEDS: VIT B CMPLX 3/FA/VIT C/BIOTIN 1 TAB TABLET JT SCH ×2 (09:00→10:07)
[2019-06-02] MEDS: MIDODRINE HCL (5MG) 5 MG TABLET GT SCH ×3 (09:00→16:07)
[2019-06-02] MEDS ORDERED: ONDANSETRON 4 MG TAB.RAPDIS GT PRN (09:00)
[2019-06-02] MEDS: GABAPENTIN 300 MG CAPSULE GT SCH (09:00)
[2019-06-02] MEDS ORDERED: PHENYLEPHRINE/SHK LV/MO/PET,WH 30 GM TUBE RC PRN (09:00)
[2019-06-02] MEDS: SERTRALINE HCL 50 MG TABLET GT SCH (09:00)
[2019-06-02] MEDS: PANTOPRAZOLE 40 MG/PACK PACK JT SCH (09:00)
[2019-06-02] MEDS: LEVETIRACETAM SOL (5 ML) 100 MG/ML UDC JT SCH ×2 (09:00→20:15)
--- NOTE | 2019-06-02 09:01 | NUR ---
INFORMED DIALYSIS NURSE LEWIS ABOUT PATIENT NEEDING DIALYSIS TODAY. LEWIS WILL FOLLOW UP.
[2019-06-02] MEDS: POLYVINYL ALCOHOL 15 ML BOTTLE EACHEYE SCH ×4 (09:53→20:16)
[2019-06-02] MEDS: TIMOLOL 0.5% SOLN OPHTH 5 ML BOTTLE RIGHTEYE SCH ×2 (09:54→16:08)
--- NOTE | 2019-06-02 11:54 | NUR ---
RAAD RN, Clarified with Andre Spicer regarding d50 1amp dosage. was given only once at 0501, and not given a second time at 0745. it was duplicate , only one dose was needed for administration . medication was double scanned but only one given as ordered.
[2019-06-02 12:00] VITALS: BP 118/67
[2019-06-02] MEDS ORDERED: BLOOD SUGAR DIAGNOSTIC 1 EACH STRIP IN SCH (12:00)
--- NOTE | 2019-06-02 13:00 | NUR ---
RAAD RN,place called to re;patient;s GI consults and J tube feeding status waiting for returning call back
[2019-06-02] MEDS: FLUDROCORTISONE 0.1 MG TABLET JT SCH ×3 (13:16→23:11)
[2019-06-02] MEDS: FERROUS SULFATE (325 MG) 325 MG/TAB TABLET GT SCH ×3 (13:16→23:11)
--- NOTE | 2019-06-02 13:20 | NUR ---
RAAD RN,Seen by insulation inspector for and exam to patient stated that will consults to GI Doctor
[2019-06-02] MEDS: NEPRO 1,000 ML BOTTLE GT PRN (14:01)
[2019-06-02] MEDS: Sodium Chloride 154 MEQ in IV 10% DEXTROSE 1,000 ML IV SCH (14:49)
[2019-06-02] MEDS: ALBUTEROL FS 2.5 MG/0.5 ML VIAL.NEB IH SCH ×2 (14:55→19:40)
[2019-06-02 16:00] VITALS: BP_SYST 104; BP_DIAS 50; BP_DIAS 52
--- NOTE | 2019-06-02 16:00 | NUR ---
PT SEEN AND EVALUATED BY DR STONE. ORDERED TO HOLD FEEDING AFTER MIDNIGHT.
[2019-06-02] MEDS: LATANOPROST EYE DROP 0.005% 2.5 ML BOTTLE EACHEYE SCH (17:32)
--- NOTE | 2019-06-02 19:13 | NUR ---
ENDORSED TO NOC SHIFT. PROVIDED SAFETY AND COMFORT TO PATIENT THROUGHOUT SHIFT. IN STABLE CONDITION. RESPIRATIONS EASY, UNLABORED, DENIES ANY PAIN AT THIS TIME, NO RESPIRATORY DISTRESS NOTES, ON INSTRUMENT/CONTROL TECHNICIAN SINUS RHYTHM. BED IS IN LOW POSITION WITH CALL LIGHT WITHIN REACH. NO SIGNS AND SYMPTOMS OF HYPO/HYPERGLYCEMIA.
--- NOTE | 2019-06-02 19:18 | NUR ---
PHYSICIAN UNDERWRITER CLOSING NOTES ENDORSED TO [facility] SHIFT NURSE, PATIENT STABLE, DENIES ANY PAIN OR SOB, ON ROOM AIR, TOLERATING WELL. PROVIDED SAFETY AND COMFORT TO PATIENT THROUGHOUT SHIFT. BED IN LOW POSITION, LOCKED, CALL LIGHT WITHIN REACH. OBTAINED SIGNED CONSENT FOR STRESS TEST TOMORROW. Addendum: 06/02/19 at 1921 by SARTHAK ALCALA RN ERROR, WRONG PT
--- NOTE | 2019-06-02 19:29 | NUR ---
TD RN NOTES RECEIVED PT ON BED. A/O X 4, NON VERBAL. ON TELE MONITOR [facility] NO RESPIRATORY DISTRESS NOTED. IV ACCESS RFA G20 WITH D51/2 NS @ 20CC/HR PATENT AND INTACT. HEAD OF BED ELEVATED. SIDE RAILS UP. CALL LIGHT WITHIN REACH. BED ALARM ON. WILL CONTINUE TO MONITOR PT CLOSELY.
[2019-06-02 20:00] VITALS: BP 132/66
--- NOTE | 2019-06-02 23:19 | NUR ---
TD RN NOTES INSULIN NOT GIVEN, PT NPO STATUS, ADMITTING DX OF HYPOGLYCEMIA. WILL RECHECK BS 0600
[2019-06-03] VITALS: BP_SYST 136; BP_SYST 150; BP_DIAS 67; BP_DIAS 72
[2019-06-03] MEDS: ALBUTEROL FS 2.5 MG/0.5 ML VIAL.NEB IH SCH ×4 (00:35→19:28)
[2019-06-03] MEDS: TRAMADOL HCL 50 MG TABLET GT PRN (01:22)
--- NOTE | 2019-06-03 03:19 | NUR ---
RT NOTE PT RCVD TRACH'D ON MECHANICAL VENT WITH CHARTED SETTINGS. PT HARITHA TX WELL. SX DONE. PT TRACH IS PATENT AND SECURE. VENT ALARMS APPEAR TO BE FUNCTIONING WELL. VENT PLUGGED INTO RED OUTLET. AMBU BAG AT BEDSIDE. Addendum: 06/03/19 at 0321 by PA FRIAS RT Amended: Links added.
[2019-06-03 04:00] VITALS: BP 108/78
[2019-06-03] MEDS: FLUDROCORTISONE 0.1 MG TABLET JT SCH ×3 (05:07→18:00)
[2019-06-03] MEDS: FERROUS SULFATE (325 MG) 325 MG/TAB TABLET GT SCH ×3 (05:07→18:00)
[2019-06-03] MEDS: BLOOD SUGAR DIAGNOSTIC 1 EACH STRIP IN SCH ×3 (05:11→18:00)
--- NOTE | 2019-06-03 07:05 | NUR ---
TD RN NOTES NO ACUTE CHANGES NOTED DURING THE SHIFT. PROVIDED COMFORT AND SAFETY. PT GTUBE FEEDING STOPPED AFTER MIDNIGHT. NO RESPIRATORY DISTRESS NOTED. WILL ENDORSE TO THE AM NURSE FOR CONTINUITY OF CARE.
--- NOTE | 2019-06-03 07:16 | NUR ---
TD RN OPENING NOTES RECEIVED REPORT FROM [facility] SHIFT NURSE. PATIENT AWAKE, ALERT AND ORIENTED X 4, VENT DEPENDENT W/ TRACH. NON- VERBAL DUE TO TRACHEOSTOMY. VENT SETTINGS: SHILEY 6, TIDAL VOLUME 400, SIMV 10, FIO2 40, PIPA 5. PT ON VICE INVESTIGATOR, SINUS RHYTHM. RESPIRATIONS ARE EASY, UNLABORED, NO SIGNS AND SYMPTOMS OF RESPIRATORY DISTRESS. D10 1/2 NS INFUSING AT 20ML/HR ON RIGHT FOREARM G20. SITE IS CLEAN, INTACT, NO SIGNS OF INFILTRATION NOTED. BED PLACED IN LOW POSITION, LOCKED, CALL LIGHT WITHIN REACH.
[2019-06-03 08:00] VITALS: BP 120/67
[2019-06-03] MEDS: LEVOTHYROXINE SODIUM 50 MCG TABLET NG SCH (09:00)
[2019-06-03] MEDS: MIDODRINE HCL (5MG) 5 MG TABLET GT SCH ×3 (09:00→17:00)
[2019-06-03] MEDS: PROSTAT (PYXIS) 30 ML UDC JT SCH ×2 (09:00→17:00)
[2019-06-03] MEDS: DOCUSATE SODIUM LIQ 100 MG/10 ML UDC JT SCH ×2 (09:00→17:00)
[2019-06-03] MEDS: PANTOPRAZOLE 40 MG/PACK PACK JT SCH (09:00)
[2019-06-03] MEDS: GABAPENTIN 300 MG CAPSULE GT SCH (09:00)
[2019-06-03] MEDS: SERTRALINE HCL 50 MG TABLET GT SCH (09:00)
[2019-06-03] MEDS: LEVETIRACETAM SOL (5 ML) 100 MG/ML UDC JT SCH ×2 (09:00→21:57)
[2019-06-03] MEDS: VIT B CMPLX 3/FA/VIT C/BIOTIN 1 TAB TABLET JT SCH (09:00)
[2019-06-03] MEDS: SODIUM CHLORIDE 1000 MG TABLET GT SCH ×3 (09:00→17:00)
[2019-06-03] MEDS: ASPIRIN 81 MG TAB.CHEW GT SCH (09:00)
--- NOTE | 2019-06-03 09:00 | NUR ---
MORNING MEDICATIONS NOT GIVEN DUE TO NPO STATUS, JT TUBE FEEDING HELD WELL PER DR. STONE.
--- NOTE | 2019-06-03 09:58 | NUR ---
SPOKE WITH DR STONE ON THE PHONE REGARDING THE PATIENT, DR STONE SAID HE WILL SEE THE PATIENT LATER TODAY AFTER THE CT ABDOMEN.
--- NOTE | 2019-06-03 09:59 | NUR ---
SPOKE WITH RADIOLOGY WHO SAID THEY WOULD COME GET THE PATIENT IN 30MIN FOR THE CT SCAN.
--- NOTE | 2019-06-03 10:30 | NUR ---
patient was picked up by ct, left unit for ct scan of abdomen in stable condition.
[2019-06-03] MEDS: CHLORHEXIDINE GLUCONATE 15 ML UDC MM SCH ×2 (10:38→21:57)
[2019-06-03] MEDS: POLYVINYL ALCOHOL 15 ML BOTTLE EACHEYE SCH ×4 (10:39→21:00)
[2019-06-03] MEDS: TIMOLOL 0.5% SOLN OPHTH 5 ML BOTTLE RIGHTEYE SCH ×2 (10:39→16:55)
--- NOTE | 2019-06-03 10:40 | NUR ---
returned from ct in stable condition
[2019-06-03 12:00] VITALS: BP 119/61
[2019-06-03] MEDS: Sodium Chloride 154 MEQ in IV 10% DEXTROSE 1,000 ML IV SCH ×2 (15:00→15:08)
--- NOTE | 2019-06-03 15:50 | NUR ---
Patient is trach and vent dependent resides at [facility]-acute unit [phone]. He is bedbound and totally dependent with adl's. He receives hemodialysis every TTHS 8:30am at [facility] [phone]. Current dc plan is to return to [facility], bedhold x7days. Addendum: 06/03/19 at 1551 by ZEFERINO ORDONEZ RN Amended: Links added.
[2019-06-03 16:00] VITALS: BP 135/72
--- NOTE | 2019-06-03 16:20 | NUR ---
CALLED [facility] AND PAGED DR STONE TO VERIFY NPO STATUS AND WHETHER TO CONTINUE JT TUBE FEEDING AND ADMINISTRATION OF MEDS. WAITING FOR RESPONSE.
--- NOTE | 2019-06-03 18:15 | NUR ---
PT WAS SEEN AND EVALUATED BY DR STONE. DR STONE STATED THERE IS NO PROBLEMS WITH J TUBE AND WE CAN RESUME FEEDING AND MEDICATIONS THROUGH J TUBE.
[2019-06-03] MEDS: LATANOPROST EYE DROP 0.005% 2.5 ML BOTTLE EACHEYE SCH (18:20)
--- NOTE | 2019-06-03 19:46 | NUR ---
CLOSING NOTE ENDORSED REPORT TO NOC SHIFT. PT IN STABLE CONDITION. PER DR STONE'S ORDERS J TUBE FEEDING CAN BE RESUMED WELL MEDICATIONS. PROVIDED SAFETY AND COMFORT TO PT THROUGHOUT SHIFT.
[2019-06-03 20:00] VITALS: BP_SYST 123; BP_SYST 153; BP_DIAS 58; BP_DIAS 75
--- NOTE | 2019-06-03 20:00 | NUR ---
BUSHEL GIRL INITIAL NOTES RECEIVED PATIENT AWAKE, ALERT AND ORIENTED X 4, MAINTAINED ON VENT SETTINGS: SHILEY 6, TV 400, SIMV MODE, AC 10, FIO2 40, PEEP 5. SR ON THE MONITOR NO SIGNS AND SYMPTOMS OF RESPIRATORY DISTRESS, DENIES ANY PAIN, GT FEEDING RESUME, CT ABD' JT IN PLACE, WELL TOLERATED, HOB ELEVATED. HELD D10 1/2 NS INFUSING AT 20ML/HR ON RIGHT FOREARM G20, WILL ENDORSE TO AM RN TO NOTIFY MD TO DC ORDER. SITE IS CLEAN, INTACT, NO SIGNS OF INFILTRATION NOTED. BED PLACED IN LOW POSITION, LOCKED, CALL LIGHT WITHIN REACH.
[2019-06-04] VITALS: BP 136/72
[2019-06-04] MEDS: FERROUS SULFATE (325 MG) 325 MG/TAB TABLET GT SCH ×4 (00:36→17:52)
[2019-06-04] MEDS: FLUDROCORTISONE 0.1 MG TABLET JT SCH ×4 (00:36→17:51)
[2019-06-04] MEDS: BLOOD SUGAR DIAGNOSTIC 1 EACH STRIP IN SCH ×4 (00:37→17:12)
[2019-06-04] MEDS: INSULIN REGULAR, HUMAN 100 UNIT/ML 3 ML VIAL SQ PRN ×4 (00:47→17:55)
[2019-06-04] MEDS: ALBUTEROL FS 2.5 MG/0.5 ML VIAL.NEB IH SCH ×4 (01:34→19:36)
[2019-06-04] MEDS: NEPRO 1,000 ML BOTTLE GT PRN (03:12)
[2019-06-04 04:00] VITALS: BP 114/59
--- NOTE | 2019-06-04 06:47 | NUR ---
ENVIRONMENTAL FIELD PROFESSIONAL CLOSING NOTES ENDORSED PATIENT AWAKE, ALERT AND ORIENTED X 4, MAINTAINED ON VENT SETTINGS: SHILEY 6, TV 400, SIMV MODE, AC 10, FIO2 40, PEEP 5. SR ON THE MONITOR NO SIGNS AND SYMPTOMS OF RESPIRATORY DISTRESS, DENIES ANY PAIN, GT FEEDING RESUME, CT ABD' JT IN PLACE, WELL TOLERATED, HOB ELEVATED. HELD D10 1/2 NS INFUSING AT 20ML/HR ON RIGHT FOREARM G20, WILL ENDORSE TO AM RN TO NOTIFY MD TO DC ORDER. SITE IS CLEAN, INTACT, NO SIGNS OF INFILTRATION NOTED. BED PLACED IN LOW POSITION, LOCKED, CALL LIGHT WITHIN REACH.
--- NOTE | 2019-06-04 07:30 | NUR ---
telephone betting clerk opening notes received pt in bed, a[facility]. on tele sr with bbb. pt is able to suction himself orally; able to make needs known. vs stable. gt to feeding at 75ml/hr. jtube to drain by gravity- drainage brown, and muddy in appearance. rfa #20 iv patent/flushed. bed in locked/lowest position. call light in reach. will cont to monitor.
[2019-06-04 08:00] VITALS: BP 110/79
[2019-06-04] MEDS: POLYVINYL ALCOHOL 15 ML BOTTLE EACHEYE SCH ×4 (09:01→21:32)
[2019-06-04] MEDS: MIDODRINE HCL (5MG) 5 MG TABLET GT SCH ×3 (09:02→17:00)
[2019-06-04] MEDS: PROSTAT (PYXIS) 30 ML UDC JT SCH ×2 (09:02→17:52)
[2019-06-04] MEDS: TIMOLOL 0.5% SOLN OPHTH 5 ML BOTTLE RIGHTEYE SCH ×2 (09:03→17:49)
[2019-06-04] MEDS: DOCUSATE SODIUM LIQ 100 MG/10 ML UDC JT SCH ×2 (09:03→17:50)
[2019-06-04] MEDS: PANTOPRAZOLE 40 MG/PACK PACK JT SCH (09:03)
[2019-06-04] MEDS: LEVETIRACETAM SOL (5 ML) 100 MG/ML UDC JT SCH ×2 (09:03→21:33)
[2019-06-04] MEDS: CHLORHEXIDINE GLUCONATE 15 ML UDC MM SCH ×2 (09:03→21:33)
[2019-06-04] MEDS: LEVOTHYROXINE SODIUM 50 MCG TABLET NG SCH (09:04)
[2019-06-04] MEDS: SERTRALINE HCL 50 MG TABLET GT SCH (09:04)
[2019-06-04] MEDS: GABAPENTIN 300 MG CAPSULE GT SCH (09:04)
[2019-06-04] MEDS: SODIUM CHLORIDE 1000 MG TABLET GT SCH ×3 (09:04→17:51)
[2019-06-04] MEDS: ASPIRIN 81 MG TAB.CHEW GT SCH (09:04)
[2019-06-04] MEDS: VIT B CMPLX 3/FA/VIT C/BIOTIN 1 TAB TABLET JT SCH (09:04)
[2019-06-04] MEDS: TRAMADOL HCL 50 MG TABLET GT PRN (09:26)
[2019-06-04 12:00] VITALS: BP 137/66
--- NOTE | 2019-06-04 13:37 | NUR ---
telecommunications network planner notes dr oconnell rounded with pt. ordered 40mg protonix bid. wants to deal with gtube vent to drain by decreasing acid secretion for now. per dr, no infection around site. keep clean and dry. will cont to monitor.
[2019-06-04 16:00] VITALS: BP 127/65
[2019-06-04] MEDS: PANTOPRAZOLE 40 MG/PACK PACK GT SCH (17:51)
[2019-06-04] MEDS: LATANOPROST EYE DROP 0.005% 2.5 ML BOTTLE EACHEYE SCH (18:18)
--- NOTE | 2019-06-04 19:30 | NUR ---
technician telecommunication systems notes pt stable. at bedside. pt tolerated all treatments well today. vs stable post hd. endorsed to pm nurse for tomi.
--- NOTE | 2019-06-04 19:52 | NUR ---
ICU NURSE INITIAL NOTES RECEIVED PATIENT AWAKE, ALERT AND ORIENTED X 4, MAINTAINED ON VENT SETTINGS: SHILEY 6, TV 400, SIMV MODE, AC 10, FIO2 40, PEEP 5. SR ON THE MONITOR NO SIGNS AND SYMPTOMS OF RESPIRATORY DISTRESS, DENIES ANY PAIN, AT BEDSIDE, GT FEEDING RUNNING AT 75ML/HR, JT IN PLACE, WELL TOLERATED, HOB ELEVATED. SITE IS CLEAN, INTACT, NO SIGNS OF INFILTRATION NOTED. BED PLACED IN LOW POSITION, LOCKED, CALL LIGHT WITHIN REACH. WILL CONTINUE TO MONITOR THE PATIENT.
[2019-06-04 20:00] VITALS: BP 138/72
[2019-06-05] VITALS: BP 149/80
[2019-06-05] MEDS: BLOOD SUGAR DIAGNOSTIC 1 EACH STRIP IN SCH ×4 (01:04→17:50)
[2019-06-05] MEDS: INSULIN REGULAR, HUMAN 100 UNIT/ML 3 ML VIAL SQ PRN ×4 (01:06→17:48)
[2019-06-05] MEDS: ALBUTEROL FS 2.5 MG/0.5 ML VIAL.NEB IH SCH ×4 (01:07→19:31)
[2019-06-05] MEDS: FERROUS SULFATE (325 MG) 325 MG/TAB TABLET GT SCH ×4 (01:16→17:45)
[2019-06-05] MEDS: FLUDROCORTISONE 0.1 MG TABLET JT SCH ×4 (01:17→17:42)
[2019-06-05 04:00] VITALS: BP 138/71
--- NOTE | 2019-06-05 07:07 | NUR ---
KNIFE GRINDER CLOSING NOTES ENDORSED PATIENT TO AM SHIFT, PATIENT AWAKE, ALERT AND ORIENTED X3, MAINTAINED ON VENT SETTINGS: SHILEY 6, TV 400, SIMV MODE, AC 10, FIO2 40, PEEP 5. SR ON THE MONITOR NO SIGNS AND SYMPTOMS OF RESPIRATORY DISTRESS, DENIES ANY PAIN, AT BEDSIDE, GT FEEDING RUNNING AT 75ML/HR, JT IN PLACE, WELL TOLERATED, HOB ELEVATED. SITE IS CLEAN, INTACT, NO SIGNS OF INFILTRATION NOTED. BED PLACED IN LOW POSITION, LOCKED, CALL LIGHT WITHIN REACH. AM RN WILL CONTINUE DEWEY.
--- NOTE | 2019-06-05 07:30 | NUR ---
telecommunications officer opening notes received pt [facility] bed, [facility] tolerating settings. no labored breathing. on tele sr 80/s with bbb. no c/o pain. vs stable. gtube to vent. jtube to feeding at 75ml/hr. no residual. pt requesting for feeding to be turned off at this time. rfa #22 patent/flushed/ no s/sx infiltration. extremities offloaded. lung sounds with some rhonchi suctioned. bowel sounds active. bed in locked/lowest position. call light in reach. will cont to monitor.
[2019-06-05 08:00] VITALS: BP 145/70
[2019-06-05] MEDS: MIDODRINE HCL (5MG) 5 MG TABLET GT SCH ×3 (09:00→17:42)
[2019-06-05] MEDS: DOCUSATE SODIUM LIQ 100 MG/10 ML UDC JT SCH ×2 (09:00→17:40)
--- NOTE | 2019-06-05 09:36 | NUR ---
RT RECEIVED PT ON [facility] VENT WITH SETTINGS PER MD ORDER. CUSTOMS BROKERAGE AGENT DONE. PT AWAKE AND ABLE TO RESPOND TO VERBAL COMMAND. TX GIVEN ORDERED. NO ADVERSE REACTIONS OBSERVED. SUCTIONED MOD AMOUNTS OF THICK, YELLOW SECRETIONS. ALARMS ON AND AUDIBLE. VENT PLUGGED INTO RED OUTLET. SPARE TRACH AND AMBU BAG PLACED AT BEDSIDE. AIRWAY SECURED AND PATENT. NO SIGNS OF DISTRESS NOTED AT THIS TIME. WILL CONTINUE TO MONITOR THE PATIENT CLOSELY FOR ANY CHANGES. Addendum: 06/05/19 at 1620 by SMITA CONNOR RT Amended: Links added.
[2019-06-05] MEDS: SODIUM CHLORIDE 1000 MG TABLET GT SCH ×3 (09:42→17:41)
[2019-06-05] MEDS: GABAPENTIN 300 MG CAPSULE GT SCH (09:42)
[2019-06-05] MEDS: SERTRALINE HCL 50 MG TABLET GT SCH (09:42)
[2019-06-05] MEDS: ASPIRIN 81 MG TAB.CHEW GT SCH (09:43)
[2019-06-05] MEDS: LEVETIRACETAM SOL (5 ML) 100 MG/ML UDC JT SCH ×2 (09:43→21:16)
[2019-06-05] MEDS: LEVOTHYROXINE SODIUM 50 MCG TABLET NG SCH (09:43)
[2019-06-05] MEDS: PROSTAT (PYXIS) 30 ML UDC JT SCH ×2 (09:43→17:44)
[2019-06-05] MEDS: VIT B CMPLX 3/FA/VIT C/BIOTIN 1 TAB TABLET JT SCH (09:44)
[2019-06-05] MEDS: CHLORHEXIDINE GLUCONATE 15 ML UDC MM SCH ×2 (09:44→21:16)
[2019-06-05] MEDS: TIMOLOL 0.5% SOLN OPHTH 5 ML BOTTLE RIGHTEYE SCH ×2 (09:44→17:49)
[2019-06-05] MEDS: PANTOPRAZOLE 40 MG/PACK PACK GT SCH ×2 (09:44→17:40)
[2019-06-05] MEDS: POLYVINYL ALCOHOL 15 ML BOTTLE EACHEYE SCH ×4 (09:51→21:19)
--- NOTE | 2019-06-05 11:38 | NUR ---
telecommunications field engineer notes dr perez rounded with pt. ordered moderate sliding scale q6h.
[2019-06-05 12:00] VITALS: BP 104/52
[2019-06-05] MEDS ORDERED: DEXTROSE 50%-WATER 50 ML DISP.SYRIN IV PRN (12:00)
[2019-06-05 16:00] VITALS: BP 127/62
--- NOTE | 2019-06-05 16:45 | NUR ---
telephone directory deliverer notes per kenneth echeverria np. order simethicone 80mg tid and eiken barrier cream for protection around j and g tube sites.
[2019-06-05] MEDS: LATANOPROST EYE DROP 0.005% 2.5 ML BOTTLE EACHEYE SCH (17:49)
[2019-06-05] MEDS: SIMETHICONE SUSP 40 MG/0.6 ML BOTTLE PO PRN (17:50)
--- NOTE | 2019-06-05 19:00 | NUR ---
telephone interviewer end of shift notes pt stable in bed, watching tv with at bedside. minimal drainage noted on gt site; drainage decreasing. updated family with poc. pt tolerated all treatments. endorsed to pm nurse for tomi.
--- NOTE | 2019-06-05 19:30 | NUR ---
RN NOTES, PATIENT IN BED AWAKE, ALERT AND ORIENTED X3, ON MECHANICAL VENTILATOR, TOLERATED SETTINGS WELL, NO S/S OF ANY SOB/ACUTE DISTRESS NOTED, NSR WITH BBB ON THE MONITOR, HR IN THE 80S AT THIS TIME, DENIES ANY PAIN OR DISCOMFORT, AT BEDSIDE AT THIS TIME, SUCTIONING PROVIDED AT THIS TIME FOR REMOVAL OF SECRETIONS, HOB ELEVATED, RIGHT FORE ARM IV SITE PATENT AND INTACT S/L, NO SIGNS OF INFILTRATION NOTED, BERNABE AV SHUNT WITH POSITIVE BRUIT/TRILL, BED LOCKED AND IN LOW POSITION, CALL LIGHT WITHIN REACH, WILL CONTINUE TO MONITOR CLOSELY,
[2019-06-05 20:00] VITALS: BP 148/71
[2019-06-06] VITALS: BP_SYST 114; BP_SYST 143; BP_DIAS 64; BP_DIAS 67
[2019-06-06] MEDS: FLUDROCORTISONE 0.1 MG TABLET JT SCH ×4 (00:03→17:44)
[2019-06-06] MEDS: FERROUS SULFATE (325 MG) 325 MG/TAB TABLET GT SCH ×4 (00:03→17:42)
[2019-06-06] MEDS: BLOOD SUGAR DIAGNOSTIC 1 EACH STRIP IN SCH ×4 (00:09→17:44)
[2019-06-06] MEDS: INSULIN REGULAR, HUMAN 100 UNIT/ML 3 ML VIAL SQ PRN ×4 (00:15→18:01)
[2019-06-06] MEDS: ALBUTEROL FS 2.5 MG/0.5 ML VIAL.NEB IH SCH ×4 (01:38→20:11)
[2019-06-06 04:00] VITALS: BP 119/59
[2019-06-06] MEDS: NEPRO 1,000 ML BOTTLE GT PRN ×2 (05:09→15:27)
--- NOTE | 2019-06-06 06:51 | NUR ---
RN NOTES, PATIENT IN BED AWAKE AT THIS TIME, , ALERT AND ORIENTED X3, ON MECHANICAL VENTILATOR, TOLERATED SETTINGS WELL, NO S/ HOB ELEVATED AT ALL TIMES, NO SIGNIFICANT CHANGE IN CONDITION DURING THE NIGHT, GT IN PLACED FOR VENTING AN DRAINING STILL, JT WITH FEEDING ONGOING, PATIENT TOLERATED WELL, BED LOCKED AND IN LOW POSITION, CALL LIGHT WITHIN REACH, WILL ENDORSE CONTINUITY OF CARE TO ONCOMING NURSE.
[2019-06-06 08:00] VITALS: BP 126/54
[2019-06-06] MEDS: PANTOPRAZOLE 40 MG/PACK PACK GT SCH ×2 (09:09→17:38)
[2019-06-06] MEDS: LEVETIRACETAM SOL (5 ML) 100 MG/ML UDC JT SCH ×2 (09:10→21:40)
[2019-06-06] MEDS: ASPIRIN 81 MG TAB.CHEW GT SCH (09:10)
[2019-06-06] MEDS: VIT B CMPLX 3/FA/VIT C/BIOTIN 1 TAB TABLET JT SCH (09:10)
[2019-06-06] MEDS: GABAPENTIN 300 MG CAPSULE GT SCH (09:10)
[2019-06-06] MEDS: DOCUSATE SODIUM LIQ 100 MG/10 ML UDC JT SCH ×2 (09:10→17:38)
[2019-06-06] MEDS: SODIUM CHLORIDE 1000 MG TABLET GT SCH ×3 (09:10→17:38)
[2019-06-06] MEDS: TRAMADOL HCL 50 MG TABLET GT PRN (09:11)
[2019-06-06] MEDS: LEVOTHYROXINE SODIUM 50 MCG TABLET NG SCH (09:12)
[2019-06-06] MEDS: SERTRALINE HCL 50 MG TABLET GT SCH (09:12)
[2019-06-06] MEDS: CHLORHEXIDINE GLUCONATE 15 ML UDC MM SCH ×2 (09:13→21:39)
[2019-06-06] MEDS: PROSTAT (PYXIS) 30 ML UDC JT SCH ×2 (09:13→17:43)
[2019-06-06] MEDS: MIDODRINE HCL (5MG) 5 MG TABLET GT SCH ×3 (09:13→17:00)
[2019-06-06] MEDS: TIMOLOL 0.5% SOLN OPHTH 5 ML BOTTLE RIGHTEYE SCH ×2 (09:14→18:01)
[2019-06-06] MEDS: POLYVINYL ALCOHOL 15 ML BOTTLE EACHEYE SCH ×4 (09:15→21:40)
--- NOTE | 2019-06-06 09:16 | NUR ---
WOUND CARE CONSULT: PT PRESENTS WITH SACRAL SCAR AND LEFT LATERAL KNEE SCAR, TRUNK SCARS, PRESENT ON ADMISSION. DEFER TO MD FOR LEAKAGE AROUND J TUBE. G TUBE TO DRAINAGE BAG. 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 PT INCONTINENT OF STOOL. RECOMMENDATIONS MADE FOR SKIN PROTECTION. DISCUSSED WITH NURSING STAFF. PT ON ONEONTA ISOFLEX LOW AIRLOSS BED. WILL SEE PRN. MD IN AGREEMENT WITH PLAN OF CARE. CURRENT JON SCORE IS 12.
[2019-06-06] MEDS ORDERED: Z GUARD REMEDY 2 OZ OINT TP PRN (09:30)
--- NOTE | 2019-06-06 09:57 | NUR ---
RN NOTE LEFT MESSAGE VIA COINTERRA REPORTED TO EDD, TO PAGE METAL PAINTER KATEY ROGEL, REGARDING LEAKING J TUBE SITE, PT CO PAIN AT J TUBE SITE. AWAITING RESPONSE.
[2019-06-06] MEDS: Z GUARD REMEDY 2 OZ OINT TP SCH (11:23)
[2019-06-06] MEDS: SIMETHICONE SUSP 40 MG/0.6 ML BOTTLE PO PRN ×2 (11:25→18:01)
[2019-06-06 12:00] VITALS: BP 136/63
--- NOTE | 2019-06-06 12:01 | NUR ---
RN NOTE SPOKE WITH KATEY ROGEL RESOURCE PROGRAM TEACHER RE J TUBE LEAKAGE, SHE SAID TO CALL DR NIEVES. ATTEMPTED TO REACH DR NIEVES VIA HIS PHONE, LEFT VOICE MAIL. AWAITING RESPONSE FOR NOW.
[2019-06-06 12:38] LABS: CALCIUM, SERUM 8.6 mg/dL (8.5-10.1); CREATININE 3.5 mg/dL (0.6-1.3); POTASSIUM 3.4 mmol/L (3.5-5.1)
[2019-06-06 16:00] VITALS: BP 145/64
[2019-06-06] MEDS: LATANOPROST EYE DROP 0.005% 2.5 ML BOTTLE EACHEYE SCH (18:02)
[2019-06-06 20:00] VITALS: BP 140/76
--- NOTE | 2019-06-06 20:00 | NUR ---
RAAD RN NOTES, RECEIVED PATIENT IN BED AWAKE AT THIS TIME WITH AT THE BEDSIDE , PATIENT IS ALERT AND ORIENTED X3, ON MECHANICAL VENTILATOR, TOLERATED SETTINGS WELL, NO S/S OF SOB, HOB ELEVATED AT ALL TIMES, GT IN PLACED FOR VENTING AN DRAINING ON GRAVITY, JT WITH FEEDING ONGOING AT 45ML/HR WITHOUT RESIDUAL, PATIENT TOLERATED WELL, BED LOCKED AND IN LOW POSITION, CALL LIGHT WITHIN REACH, WILL CONTINUE TO MONITOR PATIENT CLOSELY.
--- NOTE | 2019-06-06 20:15 | NUR ---
RT REC'D PT ON [facility] VENT WITH SETTINGS PER MD ORDER. MARKETING COMMUNICATION MANAGER DONE. PT AWAKE AND ABLE TO RESPOND TO VERBAL COMMAND. TX GIVEN ORDERED. NO ADVERSE REACTIONS. SUCTIONED MOD AMOUNTS OF THICK, YELLOW SECRETIONS. ALARMS ON AND AUDIBLE. VENT PLUGGED INTO RED OUTLET. SPARE TRACH AND AMBU BAG PLACED AT BEDSIDE. AIRWAY SECURED AND PATENT. NO SIGNS OF SOB NOTED AT THIS TIME. WILL CONTINUE TO MONITOR. Addendum: 06/06/19 at 2017 by MARYANN FERNANDEZ RT Amended: Links added.
--- NOTE | 2019-06-06 22:00 | NUR ---
RN NOTES PATIENT IS FORGETFUL AND TRIED TO GET OUT OF THE BED WITHOUT CALLING FOR HELP. DUE TO THE ADMITTING DIAGNOSIS AND RECENT HISTORY OF FALL I REORIENT PATIENT Q30 MIN AND ASKED HIM TO USE THE CALL LIGHT. PATIENT TRIED TO STAND UP MULTIPLE TIMES WITHOUT USING CALL LIGHT FOR HELP, DONOR SERVICES SPECIALIST SHYLA NOTIFIED AND PATIENT HAS BEEN TRANSFERRED TO ROOM 105 CLOSER TO NURSING STATION. BED IS IN LOW, ,LOCKED POSITION, BED ALARM IS ON , CALL LIGHT IS WITHIN REACH AND PATIENT IS INSTRUCTED TO CALL FOR HELP IF HE NEEDS TO USE THE BATHROOM.WILL CONTINUE TO MONITOR PATIENT CLOSELY. Addendum: 06/06/19 at 2337 by CASI DUARTE RN DISREGARD THE NOTES ABOVE, WRONG PATIENT DOCUMENTATION.
--- NOTE | 2019-06-06 23:00 | NUR ---
RN NOTES MD PICKETT IS AT THE BEDSIDE AND GAVE VERBAL ORDER OF COLLECTION G-TUBE AND J-TUBE SITE SWAB . ORDER READ BACK HAS BEEN DONE AND SWAB HAS BEEN COLLECTED AND SENT TO LAB. WILL CONTINUE TO MONITOR PATIENT CLOSELY.
[2019-06-07] VITALS (8 sets, daily range): BP systolic 111–147; BP diastolic 55–81
[2019-06-07] MEDS: FLUDROCORTISONE 0.1 MG TABLET JT SCH ×4 (00:37→18:21)
[2019-06-07] MEDS: BLOOD SUGAR DIAGNOSTIC 1 EACH STRIP IN SCH ×4 (00:38→18:02)
[2019-06-07] MEDS: FERROUS SULFATE (325 MG) 325 MG/TAB TABLET GT SCH ×4 (00:38→18:00)
[2019-06-07] MEDS: INSULIN REGULAR, HUMAN 100 UNIT/ML 3 ML VIAL SQ PRN ×4 (00:46→18:08)
--- NOTE | 2019-06-07 01:30 | NUR ---
RN NOTES PATIENT IN BED AWAKE AT THIS TIME, , ALERT AND ORIENTED X3, ON MECHANICAL VENTILATOR, TOLERATED SETTINGS WELL, NO S/S OF SOB NOTED DURING MY SHIFT, HOB ELEVATED AT ALL TIMES, NO SIGNIFICANT CHANGE IN CONDITION DURING THE NIGHT, GT IN PLACED FOR VENTING AN DRAINING STILL ON GRAVITY, JT WITH FEEDING ONGOING, PATIENT TOLERATED WELL WITHOUT ANY RESIDUAL. BED LOCKED AND IN LOW POSITION, CALL LIGHT WITHIN REACH, WILL ENDORSE CONTINUITY OF CARE TO NURSE ANDRADE.
[2019-06-07] MEDS: ALBUTEROL FS 2.5 MG/0.5 ML VIAL.NEB IH SCH ×3 (02:15→13:14)
--- NOTE | 2019-06-07 06:41 | NUR ---
MANAGER DEMAND CLOSING NOTES PATIENT IN BED ASLEEP AT THIS TIME, , ALERT AND ORIENTED X3, ON MECHANICAL VENTILATOR, TOLERATED SETTINGS WELL, NO S/S OF SOB NOTED DURING MY SHIFT, HOB ELEVATED AT ALL TIMES, NO SIGNIFICANT CHANGE IN CONDITION DURING THE NIGHT, GT IN PLACED FOR VENTING AN DRAINING STILL ON GRAVITY, JT WITH FEEDING ONGOING, PATIENT TOLERATED WELL WITHOUT ANY RESIDUAL. BED LOCKED AND IN LOW POSITION, CALL LIGHT WITHIN REACH, WILL ENDORSE CONTINUITY OF CARE TO AM NURSE.
--- NOTE | 2019-06-07 08:30 | NUR ---
rn note pt AOX3, in bed, on mech vent, tolerates settings well, on telemetry SR 79, CO PAIN AND BLOATING IN THE STOMACH, GT DRAINS VIA GRAVITY, JTUBE IN PLACE, TUBE FEEDING RUNNING AT 45 ML/HR, PT CLEAN AND DRY, TURNED AND REPOSITIONED, CALL LIGHT WITHIN REACH, BED IN LOCKED AND LOW POSITION, BED ALARM ON. WILL MONITOR.
[2019-06-07] MEDS: CHLORHEXIDINE GLUCONATE 15 ML UDC MM SCH ×2 (09:00→09:14)
[2019-06-07] MEDS: DOCUSATE SODIUM LIQ 100 MG/10 ML UDC JT SCH ×2 (09:10→18:02)
[2019-06-07] MEDS: NEPRO 1,000 ML BOTTLE GT PRN (09:10)
[2019-06-07] MEDS: SERTRALINE HCL 50 MG TABLET GT SCH (09:11)
[2019-06-07] MEDS: SIMETHICONE SUSP 40 MG/0.6 ML BOTTLE PO PRN (09:11)
[2019-06-07] MEDS: PROSOURCE / PROSTAT (PYXIS) 30 ML UDC GT SCH ×2 (09:13→18:02)
[2019-06-07] MEDS: PANTOPRAZOLE 40 MG/PACK PACK GT SCH ×2 (09:13→18:03)
[2019-06-07] MEDS: SODIUM CHLORIDE 1000 MG TABLET GT SCH ×3 (09:13→18:02)
[2019-06-07] MEDS: VIT B CMPLX 3/FA/VIT C/BIOTIN 1 TAB TABLET JT SCH (09:13)
[2019-06-07] MEDS: LEVETIRACETAM SOL (5 ML) 100 MG/ML UDC JT SCH (09:13)
[2019-06-07] MEDS: LEVOTHYROXINE SODIUM 50 MCG TABLET NG SCH (09:13)
[2019-06-07] MEDS: GABAPENTIN 300 MG CAPSULE GT SCH (09:13)
[2019-06-07] MEDS: ASPIRIN 81 MG TAB.CHEW GT SCH (09:13)
[2019-06-07] MEDS: POLYVINYL ALCOHOL 15 ML BOTTLE EACHEYE SCH ×3 (09:14→17:00)
[2019-06-07] MEDS: MIDODRINE HCL (5MG) 5 MG TABLET GT SCH ×3 (09:14→17:00)
[2019-06-07] MEDS: TIMOLOL 0.5% SOLN OPHTH 5 ML BOTTLE RIGHTEYE SCH ×2 (09:17→17:00)
[2019-06-07] MEDS: Z GUARD REMEDY 2 OZ OINT TP SCH (09:17)
[2019-06-07] MEDS: TRAMADOL HCL 50 MG TABLET GT PRN (10:26)
--- NOTE | 2019-06-07 11:55 | NUR ---
RN NOTE PT ABOUT TO BE DISCHARGED, EXPLAINED IMPORTANCE OF TAKING SKIN PICTURES BUT REFUSED, STATING THAT HE IS IN PAIN, EVEN THOUGH PAIN MEDICATION GIVEN.
--- NOTE | 2019-06-07 17:00 | NUR ---
rn note report given to RENAY Carcamo for discharge instructions.
[2019-06-07] MEDS: LATANOPROST EYE DROP 0.005% 2.5 ML BOTTLE EACHEYE SCH (18:09)
--- NOTE | 2019-06-07 20:17 | NUR ---
DROP MAN DC NOTE PT PICKED UP FOR TRANSFER TO [facility], MAINTAINED ON MECHANICAL VENT, WELL TOLERATED. JT CLAMPED, GT DRAINING TO BAG, EMPTY, PT CLEAN AND DRY, REPORT GIVEN TO YARIEL VALENTIN PAPERWORK PROVIDED, REPORT GIVEN BY SINGH NIÑO TO FACILITY, IV LINE DC, SITE INTACT TRANSPORT WITH RT FOR TRANSPORT.
== END 2019-06-07 20:25 | DRG 252 ==
LOC: ER 00:35 → TELE-TD 02:48 → TELE1 06-03 09:35
PROVIDERS: ADMIT Internal Medicine Nephrology; ATTEND Internal Medicine Nephrology
PROC: 5A1955Z Respiratory Ventilation, Greater than 96 Consecutive Hours (ICD-10-PCS; principal; 2019-06-02)
PROC: 5A1D70Z Performance of Urinary Filtration, Intermittent, Less than 6 Hours Per Day (ICD-10-PCS; 2019-06-04)
DX: K94.23 Gastrostomy malfunction (principal); Z99.11 Dependence on respirator [ventilator] status; J96.11 Chronic respiratory failure with hypoxia; K31.84 Gastroparesis; E11.22 Type 2 diabetes mellitus with diabetic chronic kidney disease; E27.40 Unspecified adrenocortical insufficiency; E11.43 Type 2 diabetes mellitus with diabetic autonomic (poly)neuropathy; R13.10 Dysphagia, unspecified; I12.0 Hypertensive chronic kidney disease with stage 5 chronic kidney disease or end stage renal disease; Y83.9 Surgical procedure, unspecified as the cause of abnormal reaction of the patient, or of later complication, without mention of misadventure at the time of the procedure; N18.6 End stage renal disease; I69.354 Hemiplegia and hemiparesis following cerebral infarction affecting left non-dominant side; Z99.2 Dependence on renal dialysis; Z95.1 Presence of aortocoronary bypass graft; Z89.512 Acquired absence of left leg below knee; Z79.899 Other long term (current) drug therapy; Z79.82 Long term (current) use of aspirin; Z79.4 Long term (current) use of insulin; E11.649 Type 2 diabetes mellitus with hypoglycemia without coma; I25.10 Atherosclerotic heart disease of native coronary artery without angina pectoris; K21.9 Gastro-esophageal reflux disease without esophagitis; G40.909 Epilepsy, unspecified, not intractable, without status epilepticus; E78.5 Hyperlipidemia, unspecified; E03.9 Hypothyroidism, unspecified; J98.11 Atelectasis; I70.0 Atherosclerosis of aorta; Z88.5 Allergy status to narcotic agent; Z79.51 Long term (current) use of inhaled steroids; Z89.421 Acquired absence of other right toe(s)
CPT/HCPCS: 31720; 36415; 71045-TC; 80048-TC; 80076-TC; 82962-TC; 83690-TC; 84484-TC; 85025-TC; 85730-TC; 86706; 87070-TC; 87081-TC; 87186-TC; 87340; 90935-TC; 94002-TC; 94003-TC; 94760-TC; 94762-TC; 94799-TC; 99082-TC; A4623; A6403; A7526; G0378; J1815; J1953; J3490; J7040; Q0162

== ENCOUNTER 2019-08-09 14:04 | Emergency (ER) | payer MEDICARE, OTHER ==
[~2019-08-09] VITALS: Ht 167.6 cm; Wt 59.0 kg
[~2019-08-09 14:04] MED LIST changes: -ACET-868 PO; -ATOR80TA JT; -CALC0.5C11 JT; +DEXT15DR6 EACHEYE; +DOCU100C36 JT; +FOLI0.8T2 JT; -INSU100I26 SQ; +LATA2.5D7 EACHEYE; -MULT-24 JT; +NPH,100V SQ; -NUT.237L67 GT; +NUT.237L67 JT; +OMEP40CA13 JT; -OMEP40CA37 JT; +ONDA4TAB5 JT; -POLY15DR40 EACHEYE; -SODI1TAB3 JT; +SODI1TAB66 JT; +TRAM50TA2 JT; -TRAV5DRO EACHEYE
[2019-08-09] MEDS ORDERED: EPINEPHRINE (1:10,000) SYRINGE 1 MG/10 ML DISP.SYRIN IVP ONE (14:09)
[2019-08-09 14:12] VITALS: BP 87/55
[2019-08-09] MEDS ORDERED: IV NS 0.9% 500 ML BAG IV ONE (14:30)
--- NOTE | 2019-08-09 14:44 | NUR ---
RT NOTE PT PLACED ON VENT PER MD ORDER. PT HAS PORTEX [address] CUFF INFLATED. TRACH TUBE MIDLINE AND SECURE. VENTILATOR SETTINGS ENDORSED BY TRANSPORT RT AC 14 500 40% +5. ALARMS SET PER PROTOCOL AND AUDIBLE VENT PLUGGED IN TO RED OUTLET. PT AWAKE AND ALERT. PT NOTED TO HAVE LEAK AROUND STOMA. AIR HOSE COUPLER PERFORMED. ALARMS SET PER PROTOCOL. NO DISTRESS NOTED. AT BED SIDE. Addendum: 08/09/19 at 1446 by KELLE GARCIA RT Amended: Links added.
--- NOTE | 2019-08-09 14:55 | NUR ---
[facility] "post dialysis sent here for abn labs High WBC". PT AAOX3, DENIES CP, SOB, DIZZINESS, N/V/D @ THIS TIME. ON VENT, PLACED ON MIRROR SILVERER. SEEN & EVAL'D BY DR. AG. WILL CONT TO MONITOR.
[2019-08-09 14:56] LABS: BASOPHILS # (AUTO) 0.1 /CMM (0.0-0.2); BASOPHILS % (AUTO) 0.5 % (0.0-2.0); HEMATOCRIT 33 % (39-51); LYMPHOCYTES # (AUTO) 0.5 /CMM (0.8-4.8); LYMPHOCYTES % (AUTO) 2.7 % (20.0-44.0); MEAN CORPUSCULAR HGB CONC 30 g/dl (31.0-36.0); MEAN CORPUSCULAR VOLUME 86 fL (80-96); MONOCYTES # (AUTO) 0.5 /CMM (0.1-1.30); MONOCYTES % (AUTO) 2.7 % (2.0-12.0); NEUTROPHILS # (AUTO) 17.7 /CMM (1.8-8.9); NEUTROPHILS % (AUTO) 92.1 % (43.0-81.0); PLATELET COUNT (AUTO) 404 /CMM (150-450); RED BLOOD CELL COUNT(AUTO) 3.83 MIL/uL (4.5-6.0); WHITE BLOOD COUNT (AUTO) 19.2 K/uL (4.3-11.0)
[2019-08-09] MEDS ORDERED: NAPH1POW3 JT (14:58)
[2019-08-09] MEDS ORDERED: NA P133E RC (14:58)
[2019-08-09] MEDS ORDERED: TRAV5DRO EACHEYE (14:58)
[2019-08-09] MEDS ORDERED: ALBU2.5V38 IH (14:58)
[2019-08-09] MEDS ORDERED: BISA10SU11 RC (14:58)
[2019-08-09] MEDS ORDERED: MAGN400O6 JT (14:58)
[2019-08-09] MEDS ORDERED: VIT500LI JT (14:58)
[2019-08-09] MEDS ORDERED: SIME80TA15 JT (14:58)
[2019-08-09] MEDS ORDERED: INSU100V7 SQ (14:58)
[2019-08-09] MEDS ORDERED: FERR300L JT (14:58)
[2019-08-09] MEDS ORDERED: ACET-868 JT (14:58)
[2019-08-09] MEDS ORDERED: AMIN30LI2 JT (14:58)
[2019-08-09 15:05] LABS: CALCIUM, SERUM 9.8 mg/dL (8.5-10.1); CARBON DIOXIDE 30 mmol/L (21-32); CHLORIDE 98 mmol/L (98-107); CREATININE 1.2 mg/dL (0.6-1.3); GLUCOSE 118 mg/dL (74-106); POTASSIUM 3.8 mmol/L (3.5-5.1); SODIUM SERUM 135 mmol/L (136-145); UREA NITROGEN, BLOOD 23 mg/dL (7-18)
[2019-08-09 15:10] LABS: ALANINE AMINOTRANSFERASE 27 U/L (12-78); ALBUMIN 2.2 g/dL (3.4-5.0); ALKALINE PHOSPHATASE 371 U/L (46-116); ASPARTATE AMINOTRANSFERASE 25 U/L (15-37); BILIRUBIN,DIRECT 0.2 mg/dL (0.0-0.2); BILIRUBIN,TOTAL 0.5 mg/dL (0.2-1.0); TOTAL PROTEIN, SERUM 9.5 g/dL (6.4-8.2)
[2019-08-09] MEDS ORDERED: LORAZEPAM INJ 2 MG/ML VIAL ONE (15:25)
[2019-08-09] MEDS ORDERED: LORAZEPAM INJ 2 MG/ML VIAL IV ONE ×2 (15:30→16:00)
[2019-08-09] MEDS ORDERED: PIPERACILLIN /TAZOBACTAM 3.375 G in IV D5W 50 ML IV ONE (15:30)
--- NOTE | 2019-08-09 15:30 | NUR ---
PT HAD SEIZURE EPISODE, WITNESSED BY RESP THERAPIST. MEDICATED ORDERED BY DR. MORILLO, PT HARITHA WELL. SZ PRECAUTION INITIATED. WILL CONT TO MONITOR.
[2019-08-09 15:50] LABS: ABG BASE EXCESS -1.7 mmol/L; ABG OXYGEN SATURATION 87.4 % (92.0-98.5); ABG PCO2 39.9 mmHg (35.0-45.0); ABG PH 7.382 (7.350-7.450); ABG PO2 57.6 mmHg (75.0-100.0); AaDO2 181.7 mmHg; COHb 1.2 % (0.5-1.5); MetHb 0.3 % (0.0-1.5); O2Hb 86.1 % (94.0-97.0); PEEP,BG 5 cm H2O; SITE, ABG Right Radial; VT, ABG 500 mL
[2019-08-09] MEDS ORDERED: LEVETIRACETAM (500MG) 1,000 MG in IV NS 0.9% 100 ML IV SCH (16:00)
--- NOTE | 2019-08-09 16:01 | NUR ---
PT GIVEN ANOTHER 0.5 MG OF ATIVAN IVP. PT HARITHA WELL.
--- NOTE | 2019-08-09 16:02 | NUR ---
ERROR ON DOCUMENTATION. MEDICATED WITH EPINEPHRINE 1:10,000 IVP.
[2019-08-09] MEDS ORDERED: ATROPINE SULFATE 1 MG/10 ML DISP.SYRIN ONE (16:04)
--- NOTE | 2019-08-09 16:05 | NUR ---
RT Pt was found unresponsive with PEA, CPR and manual ventilation was immediately initiated.
--- NOTE | 2019-08-09 16:10 | NUR ---
1605 PT UNRESPONSIVE ON PEA. CPR INITIATED PER DR. MORILLO'S ORDER. 1608 MEDICATED WITH 1:1,000 OF EPINEPHRINE IVP 1609 MEDICATED WITH 0.5 MG OF ATROPINE IVP. CONT ACLS SEE CODE BLUE SHEET.
[2019-08-09] MEDS ORDERED: ATROPINE SULFATE 1 MG/10 ML DISP.SYRIN IV ONE (16:30)
--- NOTE | 2019-08-09 16:45 | NUR ---
CALLED [facility] NEPHROLOGY DR ROMERO WAS PAGED.
--- NOTE | 2019-08-09 17:10 | NUR ---
CALLED [facility], MESSAGE PERSONNEL RECORDS CLERK NOT AVAILABLE.
== END 2019-08-09 20:01 ==
LOC: ER 14:08
DX: J18.9 Pneumonia, unspecified organism (principal); I12.0 Hypertensive chronic kidney disease with stage 5 chronic kidney disease or end stage renal disease; N18.6 End stage renal disease; R56.9 Unspecified convulsions; G93.40 Encephalopathy, unspecified; I25.2 Old myocardial infarction; E78.5 Hyperlipidemia, unspecified; E11.22 Type 2 diabetes mellitus with diabetic chronic kidney disease; F32.9 Major depressive disorder, single episode, unspecified; I44.7 Left bundle-branch block, unspecified; Z86.73 Personal history of transient ischemic attack (TIA), and cerebral infarction without residual deficits; Z87.09 Personal history of other diseases of the respiratory system; Z93.1 Gastrostomy status; Z99.2 Dependence on renal dialysis; Z89.512 Acquired absence of left leg below knee; Z90.49 Acquired absence of other specified parts of digestive tract; Z88.5 Allergy status to narcotic agent; Z79.4 Long term (current) use of insulin; Z79.82 Long term (current) use of aspirin; Z89.612 Acquired absence of left leg above knee
CPT/HCPCS: 36415; 36600 ×2; 71045; 80048; 80076; 82803; 82962; 83605; 84145; 84484; 85025; 85730; 87040 ×2; 92950; 93005; 96374; 96375; 96376; 99285; J0171; J0461; J1953; J2060; J2543; J7030; J7040; J7060